=== PATIENT | female | born 1995 | race Caucasian/White ===

== ENCOUNTER 2017-10-05 12:35 | Day surgery (SDC) | payer OTHER, MEDICAID, SELFPAY ==
[2017-09-28 15:06] VITALS: BMI 38.0
[2017-10-05] VITALS (7 sets, daily range): BP systolic 94–158; BP diastolic 56–92; PULSE 77–112; RESP 16–22; TEMP 36.2–37; O2SAT 96–99; BMI 38.0
--- NOTE | 2017-10-05 | PATH_ITS ---
[facility] Accession Number: [id number] . 01 Material submitted: . HEMORRHOIDS . 02 Diagnosis: Hemorrhoids, Hemorrhoidectomy: Portions of hemorrhoid x2; negative for atypia and malignancy. [facility]/10/07/2017 . 02 Electronically signed: . Lizeth Allen MD, Pathologist NPI- [id number] . 01 Gross description: . Received one formalin-filled container labeled with the patient's name and labeled hemorrhoids. The specimen consists of two hussein-faust friable portions of tissue, which range in size from 0.5 x 0.5 x 0.3 cm to 0.6 x 0.5 x 0.3 cm. Both samples are inked blue, bisected and totally submitted in one cassette. ([id number]) . / . 02 Pathologist provided ICD-10: K64.9 . 02 CPT . 078221 Performed at: 01 [facility] [address] [facility], [place], [place] [id number] MD Brandon Raymundo MD Phone: [phone] Performed at: 02 [facility] [address] [place], [place] [id number] MD Kamaljit Jarvis MD Phone: [phone]
[2017-10-05] MEDS: LACTATED RINGERS 1,000 ML 42 ML IV ×2 (13:11→15:09)
[2017-10-05] MEDS: CEFOTETAN 2 GM/50 ML PIGGYBACK IV (14:30)
--- NOTE | 2017-10-05 14:53 | SUR.OPER ---
Lithotomy on padded OR bed, head on pillow, arms secured on padded arm boards at <90 degrees abduction. Legs secured in padded yellow fins stirrups.
[2017-10-05] MEDS: LIDOCAINE 1% W/EPI INJ 20 ML INJ (14:58)
[2017-10-05] MEDS: BUPIVACAINE 0.5% (PF) 30 ML VIAL INJ (14:59)
[2017-10-05] MEDS: DIBUCAINE 1% OINT 28 GM 1 APPLIC TOP (15:14)
--- NOTE | 2017-10-05 15:18 | PM.OP.1 ---
Operative Date/Time/Diagnoses - Date of procedure: 10/05/17 Time of procedure: 15:18 Pre-op diagnosis: Painful and troubling internal and external hemorrhoids Post-op diagnosis: same Procedure & Clinicians Procedure: Examination under anesthesia with possible hemorrhoidectomy and possible banding Same procedure as scheduled: Yes Surgeon: Lauren Loaiza Click Yes if Unassisted: Yes Anesthesia Type: General (Ahsaei) and Local Operative Notes Findings: Internal and external hemorrhoid complexes at 9 O'clock and 2 O'clock Internal complex at 6 O'clock Closure Type: primary Specimen(s): other (Portions of hemorrhoid tissue to pathology in formalin) Estimated Blood Loss (mL): 20 Procedure in detail: After obtaining informed consent, the patient was brought to the operating room and placed in the supine position on the operating table. Following successful induction of general endotracheal anesthesia, appropriate padding of all bony prominences, and placement of appropriate monitors, the legs were placed in Conner stirrups and the perianal and perineal region are prepped and draped in the standard surgical fashion. A timeout was held per SCOAP protocol. An anal retractor was lubricated and placed within the anal canal. This revealed a fairly large hemorrhoid complex at 9 o'clock and a 2nd at approximately 2:00 position. Both of these areas were internal and external complexes that were not adequately addressed with bands only. We began our procedure at the 9 o'clock Radian. A 2 0 chromic suture was placed at the apex of the hemorrhoid complex at 9 o'clock. The mucosa was opened sharply and the hemorrhoid dissected off of the underlying muscle and overlying skin using Metzenbaum scissors. It was passed from the table as a specimen. Care was taken not to violate the muscle or divide any of the muscle fibers. The defect was then closed in a running locking fashion by over sewing the mucosa with the chromic suture. The wound was checked for hemostasis. An identical procedure was completed at the 2 o'clock position. Further examination of the anal canal revealed an internal hemorrhoid complex at approximately 6 o'clock. This 1 was primarily internal and so I chose to address it with a band. The complex was grasped into elastic bands were deployed at its base. The anal canal was rechecked to be sure that all suture lines were intact and the bands were tightly deployed. The wound was checked for hemostasis and irrigated with warm saline. A roll of Gelfoam coated with lidocaine ointment was placed within the anal canal. All sponge, needle, and instrument counts were correct at the conclusion of the case. The patient was allowed to awaken from anesthesia without difficulty and taken to the postanesthesia care unit in good condition. All sponge, needle, and instrument counts were correct at the conclusion of the case. The patient was allowed to awaken from anesthesia without difficulty and taken to the post-anesthesia care unit in good condition. Complications: none Condition: stable Disposition: PACU Plan for aftercare: 1. Discharge to home 2. Follow up with me in 2 weeks
[2017-10-05] MEDS: fentaNYL 100 MCG/2 ML INJ 50 MCG IV ×3 (15:30→15:44)
[2017-10-05] MEDS: OXYCODONE/ACETAMINOPHEN 5/325 TABLET 1 TAB PO (16:04)
--- NOTE | 2017-10-05 17:00 | PM.HP.1 ---
History of Present Illness Chief complaint: [id number] Narrative: Nina Liriano is a 22 year old female who is well known to me from previous visits. She had a hemorrhoid banding this past fall and reports that it helped but she would like to have formal hemorrhoidectomy of the remaining hemorrhoids. We talked about this at the time we discussed banding and so she reports she feels comfortable with the procedure specifics. Patient History Medical History Hemorrhoids (Acute) Shoulder pain, right (Acute) Skin lesion of right arm (Acute) Surgical History History of tonsillectomy and adenoidectomy (Acute) History of third molar tooth extraction Status post tonsillectomy and adenoidectomy Family & Social History Family History: Reviewed 10/05/17 by Lauren Loaiza MD Tobacco & Substance Use Smoking Status: Never smoker Alcohol intake: current Meds Home Medications Medication Instructions Recorded Confirmed Type Test Strips - Freestyle str SEE INSTRUCTIONS #120 05/24/16 Rx Glucose: Home Monitor ea SEE INSTRUCTIONS #1 05/28/16 Rx Test Strips - Freestyle str QID #150 05/31/16 Rx metformin [Glucophage] 2 tab PO BID #360 tab 08/29/17 10/05/17 Rx norethindrone ac-eth estradiol 1 tab PO QDAY #4 pac 08/29/17 10/05/17 Rx [Loestrin 1.5/30 (21)] diazepam 5 mg PO DAILY PRN 10/05/17 10/05/17 History diazepam [Valium] 10 mg PO TID #20 tab MDD 3 10/05/17 Rx hydrocodone-acetaminophen 1 tab PO Q4H 10/05/17 10/05/17 History ibuprofen 600 mg PO Q6HP PRN 10/05/17 10/05/17 History methylprednisolone [Medrol (Jori)] See Label Instructions PO PER PKG 10/05/17 Rx DIR #21 each MDD As directed ondansetron [Zofran ODT] 4 mg PO Q6H PRN #14 tab 10/05/17 Rx oxycodone-acetaminophen [Percocet] 1 tab PO Q4-6H PRN #40 tab MDD 8 10/05/17 Rx Allergies Allergy/AdvReac Type Severity Reaction Status Date / Time No Known Drug Allergies Allergy Verified 10/05/17 15:00 Review of Systems Review of Systems All systems reviewed & are unremarkable except as noted in HPI and below Exam Vital Signs (past 8 hours): Vital Signs - 8 hr 10/05/17 12:54 10/05/17 15:23 10/05/17 15:28 Temperature 97.2 F L 97.7 F Pulse Rate 100 H 112 H 92 H Respiratory Rate 16 22 16 Blood Pressure 126/80 H 158/92 H 125/81 H Pulse Oximetry 97 96 99 10/05/17 15:35 10/05/17 15:49 10/05/17 16:10 Temperature 97.8 F Pulse Rate 92 H 94 H 77 Respiratory Rate 16 17 17 Blood Pressure 122/66 H 126/87 H 94/56 L Pulse Oximetry 98 97 98 10/05/17 16:38 Temperature 98.6 F Pulse Rate 98 H Respiratory Rate 18 Blood Pressure 121/70 H Pulse Oximetry 97 Pulse Oximetry 97 Oxygen Delivery Method Room Air Narrative Exam Narrative: Very pleasant and healthy young lady in no obvious distress. HEENT: Normocephalic and atraumatic, pupils equal round reactive to light and accommodation with anicteric sclera. Lungs: Clear to auscultation bilaterally Heart: Regular rate and rhythm without murmur Abdomen: Soft, nontender, active bowel sounds Perianal examination: 2 large internal external hemorrhoid complexes at 9 o'clock and 2 o'clock respectively. Another palpable internal hemorrhoid at approximately 6 o'clock in lithotomy position. No active bleeding and no open lesions. Extremities: Warm and well perfused without edema Assessment & Plan Plan: Plan: Very pleasant and healthy 22-year-old lady with troublesome and irritating and painful internal and external hemorrhoids. We once again discussed the risks and benefits of hemorrhoidectomy including anal stenosis and recurrent hemorrhoids and the patient expressed a desire to have the procedure.
--- NOTE | 2017-10-05 17:03 | P.HP_ITS ---
History of Present Illness Chief complaint: [id number] Narrative: Nina Liriano is a 22 year old female who is well known to me from previous visits. She had a hemorrhoid banding this past fall and reports that it helped but she would like to have formal hemorrhoidectomy of the remaining hemorrhoids. We talked about this at the time we discussed banding and so she reports she feels comfortable with the procedure specifics. Patient History Medical History Hemorrhoids (Acute) Shoulder pain, right (Acute) Skin lesion of right arm (Acute) Surgical History History of tonsillectomy and adenoidectomy (Acute) History of third molar tooth extraction Status post tonsillectomy and adenoidectomy Family & Social History Family History: Reviewed 10/05/17 by Lauren Loaiza MD Tobacco & Substance Use Smoking Status: Never smoker Alcohol intake: current Meds Home Medications Medication Instructions Recorded Confirmed Type Test Strips - Freestyle str SEE INSTRUCTIONS #120 05/24/16 Rx Glucose: Home Monitor ea SEE INSTRUCTIONS #1 05/28/16 Rx Test Strips - Freestyle str QID #150 05/31/16 Rx metformin [Glucophage] 2 tab PO BID #360 tab 08/29/17 10/05/17 Rx norethindrone ac-eth estradiol 1 tab PO QDAY #4 pac 08/29/17 10/05/17 Rx [Loestrin 1.5/30 (21)] diazepam 5 mg PO DAILY PRN 10/05/17 10/05/17 History diazepam [Valium] 10 mg PO TID #20 tab MDD 3 10/05/17 Rx hydrocodone-acetaminophen 1 tab PO Q4H 10/05/17 10/05/17 History ibuprofen 600 mg PO Q6HP PRN 10/05/17 10/05/17 History methylprednisolone [Medrol (Jori)] See Label Instructions PO PER PKG 10/05/17 Rx DIR #21 each MDD As directed ondansetron [Zofran ODT] 4 mg PO Q6H PRN #14 tab 10/05/17 Rx oxycodone-acetaminophen [Percocet] 1 tab PO Q4-6H PRN #40 tab MDD 8 10/05/17 Rx Allergies Allergy/AdvReac Type Severity Reaction Status Date / Time No Known Drug Allergies Allergy Verified 10/05/17 15:00 Review of Systems Review of Systems All systems reviewed & are unremarkable except as noted in HPI and below Exam Vital Signs (past 8 hours): Vital Signs - 8 hr 3 10/05/17 12:54 10/05/17 15:23 10/05/17 15:28 Temperature 97.2 F L 97.7 F Pulse Rate 100 H 112 H 92 H Respiratory Rate 16 22 16 Blood Pressure 126/80 H 158/92 H 125/81 H Pulse Oximetry 97 96 99 3 10/05/17 15:35 10/05/17 15:49 10/05/17 16:10 Temperature 97.8 F Pulse Rate 92 H 94 H 77 Respiratory Rate 16 17 17 Blood Pressure 122/66 H 126/87 H 94/56 L Pulse Oximetry 98 97 98 3 10/05/17 16:38 Temperature 98.6 F Pulse Rate 98 H Respiratory Rate 18 Blood Pressure 121/70 H Pulse Oximetry 97 Pulse Oximetry 97 Oxygen Delivery Method Room Air Narrative Exam Narrative: Very pleasant and healthy young lady in no obvious distress. HEENT: Normocephalic and atraumatic, pupils equal round reactive to light and accommodation with anicteric sclera. Lungs: Clear to auscultation bilaterally Heart: Regular rate and rhythm without murmur Abdomen: Soft, nontender, active bowel sounds Perianal examination: 2 large internal external hemorrhoid complexes at 9 o' clock and 2 o'clock respectively. Another palpable internal hemorrhoid at approximately 6 o'clock in lithotomy position. No active bleeding and no open lesions. Extremities: Warm and well perfused without edema Assessment & Plan Plan: Plan: Very pleasant and healthy 22-year-old lady with troublesome and irritating and painful internal and external hemorrhoids. We once again discussed the risks and benefits of hemorrhoidectomy including anal stenosis and recurrent hemorrhoids and the patient expressed a desire to have the procedure.
== END 2017-10-05 17:09 | disposition home or self-care (01) ==
PROVIDERS: PCP Family Medicine; Visit Provider Surgery
PROC: (CPT 45990; principal; 2017-10-05 13:45)
DX: K64.4 Residual hemorrhoidal skin tags (principal); K64.8 Other hemorrhoids
CPT/HCPCS: 46260; 88304; J1100; J2405; J2704; J3010

== ENCOUNTER 2018-05-11 16:17 | Emergency (ER) | payer OTHER, MEDICAID, SELFPAY ==
[2018-05-11 16:46] VITALS: BP 117/73; PULSE 67; RESP 15; TEMP 36.8; O2SAT 100; BMI 37.3
--- NOTE | 2018-05-11 18:36 | ED_ITS ---
HPI - URI/Sore Throat General Chief Complaint: Upper Respiratory Symptoms Stated Complaint: swollen throat, feels feverish, cold sore in throa Time Seen by Provider: 05/11/18 18:07 Source: patient Mode of arrival: ambulatory Limitations: no limitations History of Present Illness HPI Narrative: Patient is a 22-year-old female who presents with sore throat ongoing for the last 3 days. She was seen evaluated at walk-in clinic yesterday. Strep was negative. She is requesting a back up strep test or a viral test. She has Magic mouthwash ready to sweet pickled fruit maker at the pharmacy though she has not yet picked it up. She is afebrile here. She denies any cough no nausea vomiting or abdominal pain. No on else is sick. MD Complaint: sore throat Severity: moderate Related Data Home Medications Medication Instructions Recorded Confirmed ibuprofen 600 mg PO Q6HP PRN 10/05/17 05/10/18 norethindrone ac-eth estradiol 1 tab PO DAILY 05/11/18 05/11/18 [Microgestin 1.5/30 (21)] Previous Rx's Medication Instructions Recorded Glucose: Home Monitor ea SEE INSTRUCTIONS #1 05/28/16 Test Strips - Freestyle str QID #150 05/31/16 metformin [Glucophage] 2 tab PO BID #360 tab 08/29/17 gabapentin 300 mg capsule 300 mg PO BID #60 cap MDD 2 10/17/17 Allergies Allergy/AdvReac Type Severity Reaction Status Date / Time No Known Drug Allergies Allergy Verified 05/11/18 16:46 Review of Systems Review of Systems GENERAL: Denies chills,fever HEENT: See HPI RESPIRATORY: Denies dyspnea, cough, wheezing CARDIOVASCULAR: Denies chest pain, palpitations GASTROINTESTINAL: Denies nausea, vomiting MUSCULOSKELETAL: Denies extremity pain, injury SKIN: No rash, no laceration, no pruritus NEUROLOGIC: Denies weakness, dizziness, headache, numbness 8 point review of systems is negative except for those stated above and HPI PFSH Medical History Hemorrhoids (Acute) Shoulder pain, right (Acute) Skin lesion of right arm (Acute) Surgical History History of tonsillectomy and adenoidectomy (Acute) History of third molar tooth extraction Status post tonsillectomy and adenoidectomy Social History household members: significant other and children Smoking Status: Never smoker alcohol intake: current Exam Initial Vital Signs Initial Vital Signs: Vital Signs Temperature 98.3 F 05/11/18 16:46 Pulse Rate 67 05/11/18 16:46 Respiratory Rate 15 05/11/18 16:46 Blood Pressure 117/73 05/11/18 16:46 Pulse Oximetry 100 05/11/18 16:46 GENERAL: Well-appearing, well-nourished and in no acute distress. HEENT: Head atraumatic,EOMI, pupils reactive, neck is supple no meningeal signs PHARYNX: No erythema tonsils absent, there are 2 canker sores noted on roof of mouth, managing own secretions CARDIOVASCULAR: Regular rate and rhythm without murmurs, rubs or gallops. RESPIRATORY: Breath sounds equal bilaterally, no wheezes rales or rhonchi. ABDOMEN: Soft, nontender. Normoactive bowel sounds all 4 quadrants. No guarding or rebound. EXTREMITIES: Normal range of motion, no clubbing or edema. Neurovascularly intact NEUROLOGICAL: Alert and oriented x4.Normal gait and speech. SKIN: Warm, dry, no laceration, no petechiae, no rashes or lesions. Course Vital Signs - 8 hr 05/11/18 16:46 Temperature 98.3 F Pulse Rate 67 Respiratory Rate 15 Blood Pressure 117/73 Pulse Oximetry 100 Discharge Plan Departure Patient Disposition: Home Clinical Impression: Acute upper respiratory infection Instructions: DI for Viral Upper Respiratory Infection -- Adult Activity Restrictions/Additional Instructions: *You have been diagnosed with upper respiratory infection *What to do: This is likely a viral syndrome and it will run its course. Supportive care. Fever control, increase fluids. *Continue to take medications as directed -sweet pickled fruit maker Magic mouthwash intake as previously prescribed *Follow up with your primary care provider in 2-3 days *Return to ER if you should have inability to tolerate fluids, or any new, worsening or concerning symptoms Prescriptions: No Action Glucose: Home Monitor SEE INSTRUCTIONS Qty: 1 RF: 0 Test Strips - Freestyle QID Qty: 150 RF: 3 metformin [Glucophage] 500 MG tablet 2 tab PO BID Qty: 360 RF: 3 gabapentin 300 mg capsule 300 mg PO BID MDD 2 Qty: 60 RF: 0 ibuprofen 600 MG tablet 600 mg PO Q6HP PRN (Reason: Pain (Scale Score 1-3)) RF: 0 norethindrone ac-eth estradiol [Microgestin 1.5 (21)] 1.5-30 mg-mcg tablet 1 tab PO DAILY RF: 0
== END 2018-05-11 19:11 | disposition home or self-care (01) ==
PROVIDERS: Emergency Provider Emergency Medicine
DX: J06.9 Acute upper respiratory infection, unspecified (principal)
CPT/HCPCS: 99282

== ENCOUNTER 2018-10-01 08:03 | Emergency (ER) | payer OTHER, MEDICAID, SELFPAY ==
[2018-10-01 08:03] VITALS: BP 141/79; PULSE 50; RESP 18; TEMP 36.6; O2SAT 100; BMI 38.7
--- NOTE | 2018-10-01 08:42 | ED_ITS ---
HPI - Abdominal Pain General Chief Complaint: Abdominal Pain Stated Complaint: Medication Reaction Time Seen by Provider: 10/01/18 08:23 Source: patient Mode of arrival: ambulatory Limitations: no limitations History of Present Illness HPI narrative: Patient is a 23-year-old female with history of PCOS presenting with vomiting mostly for the last 5 hours she has had some diarrhea as well. She started taking her metformin were consistently and she normally did she has been managing at that for about a week and half. However this came suddenly where she started throwing. She has some upper epigastric abdominal pain. CC denies any fever or chills. MD complaint: abdominal pain Onset (ago): hour(s) (5) Pain Consistency: intermittent Location: epigastric Quality: cramping Related Data Home Medications Medication Instructions Recorded Confirmed ibuprofen 600 mg PO Q6HP PRN 10/05/17 05/10/18 Previous Rx's Medication Instructions Recorded Glucose: Home Monitor ea SEE INSTRUCTIONS #1 05/28/16 Test Strips - Freestyle str QID #150 05/31/16 gabapentin 300 mg capsule 300 mg PO DAILY #90 cap MDD 2 05/12/18 metformin 500 mg tablet 1,000 mg PO BID #360 tab 05/12/18 norethindrone acetate-ethinyl 1 tab PO DAILY #63 tab 05/12/18 estradiol 1.5 mg-30 mcg tablet ondansetron 4 mg PO Q6-8H PRN #10 tab 10/01/18 Allergies Allergy/AdvReac Type Severity Reaction Status Date / Time No Known Drug Allergies Allergy Verified 10/01/18 08:24 Review of Systems Review of Systems GENERAL: Denies chills, fatigue, malaise, fever, sweats, travel HEENT: Denies sinus pain, ear pain, sore throat, difficulty swallowing, neck pain RESPIRATORY: Denies dyspnea, cough, wheezing, hemoptysis, sputum. CARDIOVASCULAR: Denies chest pain, palpitations, orthopnea, edema GASTROINTESTINAL: See HPI : Denies dysuria, frequency, incontinence, hematuria, urinary retention, flank pain. MUSCULOSKELETAL: Denies weakness, joint pain, or bony pain SKIN: No rash, no erythema, no pruritus NEUROLOGIC: Denies weakness, dizziness, headache, numbness, change in speech, confusion PSYCHIATRIC: No concerning psychosocial issues. 12 point review of systems is negative except for those stated above and HPI [facility] Medical History Hemorrhoids (Acute) Shoulder pain, right (Acute) Skin lesion of right arm (Acute) Surgical History History of tonsillectomy and adenoidectomy (Acute) History of third molar tooth extraction Status post tonsillectomy and adenoidectomy Social History household members: significant other and children Smoking Status: Never smoker alcohol intake: current Social History household members: significant other and children Smoking Status: Never smoker alcohol intake: current Exam Initial Vital Signs Initial Vital Signs: Vital Signs Temperature 97.9 F 10/01/18 08:03 Pulse Rate 50 L 10/01/18 08:03 Respiratory Rate 18 10/01/18 08:03 Blood Pressure 141/79 H 10/01/18 08:03 Pulse Oximetry 100 10/01/18 08:03 GENERAL: Alert overweight female appears slightly uncomfortable HEENT: Head atraumatic,EOMI, pupils reactive, face symmetric, [moist] mucous membranes CARDIOVASCULAR: Regular rate and rhythm without murmurs, rubs or gallops. RESPIRATORY: Breath sounds equal bilaterally, no wheezes rales or rhonchi. ABDOMEN: Soft, epigastric tenderness, no guarding no rebound no lower abdominal tenderness : No CVA tenderness EXTREMITIES: Normal range of motion, no clubbing or edema. Neurovascularly intact NEUROLOGICAL: Alert and oriented x4.Normal gait and speech. Cranial nerves II through XII grossly intact. SKIN: Warm, dry, no laceration, no petechiae, no rashes or lesions. Course Orders Ordered: ED Orders 10/01/18 09:05 Complete Blood Count AUTO DIFF Stat Comprehensive Metabolic Panel Stat Lipase Stat 10/01/18 10:35 Urine Culture Stat Urine Microscopic Stat Discontinued Medications Sodium Chloride (Normal Saline 0.9%) 1,000 mls @ 1,000 mls/hr IV CONT CAESAR Last Infusion: 10/01/18 10:55 Dose: 0 mls/hr Admin: 10/01/18 09:29 Dose: 1,000 mls/hr Ketorolac Tromethamine (Toradol) 30 mg IV NOW ONE Stop: 10/01/18 10:50 Last Admin: 10/01/18 10:58 Dose: 30 mg Ondansetron HCl (Zofran) 4 mg IV NOW ONE Stop: 10/01/18 08:50 Last Admin: 10/01/18 09:29 Dose: 4 mg Ondansetron HCl (Zofran) 4 mg IV NOW ONE Stop: 10/01/18 10:50 Last Admin: 10/01/18 10:58 Dose: 4 mg Reevaluation(s) Reevaluation #1: Patient was Ambulatory to the restroom was feeling much better. However when she returned she started feeling nauseated again she has not vomited but overall not feeling well Time: 10:48 Vital Signs - 8 hr 10/01/18 08:03 10/01/18 09:41 10/01/18 11:25 Temperature 97.9 F 98.1 F Pulse Rate 50 L 48 L 45 L Respiratory Rate 18 16 Blood Pressure 141/79 H Blood Pressure [Left Arm] 112/55 L 129/86 Pulse Oximetry 100 100 100 MDM - Abdominal Pain Lab Data Attestation: I reviewed the patient's lab results. Result diagrams: 10/01/18 09:05 10/01/18 09:05 Lab Results 10/01/18 10/01/18 10/01/18 Range/Units 09:05 09:05 10:35 WBC 7.8 (4.5-11.0) X10^3/uL RBC 4.56 (4.0-5.2) X10^6/uL Hgb 13.4 (12.0-16.0) g/dL Hct 39.3 (36-46) % MCV 86.0 (80-100) fL MCH 29.4 (26-34) PG MCHC 34.1 (30-36) % RDW 13.1 (11.6-14.8) % Plt Count 190 (150-400) X10^3/uL Neut % (Auto) 79.9 H (50-75) % Lymph % (Auto) 15.6 L (25-40) % [place] % (Auto) 4.0 (3-14) % Eos % (Auto) 0.3 L (2-4) % Baso % (Auto) 0.2 (0-2) % Neut # (Auto) 6200 (8170-0628) /uL Lymph # (Auto) 1200 (1346-9200) /uL [place] # (Auto) 300 (0-900) /uL Eos # (Auto) 0 (0-450) /uL Baso # (Auto) 0 (0-100) /uL Sodium 137 (137-145) mmol/L Potassium 3.9 (3.4-5.1) mmol/L Chloride 102 (98-107) mmol/L Carbon Dioxide 21 L (22-32) mmol/L BUN 9 (7-17) mg/dL Creatinine 0.70 (0.52-1.04) mg/dL Estimated GFR > 60.0 (>60) mL/min BUN/Creatinine Ratio 12.9 (6-22) Glucose 125 H (70-100) mg/dL Calcium 9.8 (8.4-10.2) mg/dL Total Bilirubin 0.6 (0.2-1.3) mg/dL AST 23 (14-36) IU/L ALT 14 (9-52) IU/L Alkaline Phosphatase 59 (38-126) U/L Total Protein 7.8 (6.3-8.2) g/dL Albumin 4.4 (3.5-5.0) g/dL Globulin 3.4 (1.7-4.1) g/dL Albumin/Globulin Ratio 1.3 (1.0-2.8) Lipase 83 (23-300) U/L Urine RBC None seen (0-5/HPF) Urine WBC 1-5/hpf (0-5/HPF) Ur Squamous Epith Cells 1-5 /hpf (0-5/HPF) Amorphous Sediment 1+ Urine Bacteria Few (2-10) H (None) Urine Mucus 2+ H (Negative) Ur Culture Indicated? Specimen cultured Point of care testing: Point of Care Testing Test Results Negative Urine Dip Bedside Urine Glucose Negative Bedside Urine Bilirubin - Negative Bedside Urine Ketone ++ 40 Urine Specific [place] 1.015 Bedside Urine Occult Blood - Negative Bedside Urine pH 7.0 Bedside Urine Protein +/- 15 Bedside Urine Urobilinogen - Negative Bedside Urine Nitrite - Negative Bedside Urine Leukocytes +/- 15 Esterase MDM Narrative Medical decision making narrative: Patient tolerating oral fluids. She does not have sinus symptoms of a UTI. This time wait for culture and sensitivity Abdomen is reexamined minimal tenderness epigastric area at this time no indication for of imaging liver enzymes and bilirubin within normal limits Discharge Plan Departure Patient Disposition: Home Clinical Impression: Vomiting Qualifiers: Vomiting type: bilious vomiting Nausea presence: with nausea Qualified Code(s): R11.14 - Bilious vomiting Discharge Date/Time: 10/01/18 12:05 Interventions: ED Discharge Assessment Last Done: 10/01/18 12:05 Instructions: DI for Dehydration -- Adult Activity Restrictions/Additional Instructions: 1) You have been diagnosed with vomiting 2) What to do: Drink frequent but small amounts of fluids. I recommend Gatorade or a Gatorade-like product, as it has small amounts of sugar and salts that improve fluid retention. 3) Take medications as directed Zofran 4 mg every 6-8 hours if needed for nausea or vomiting sent to [facility] in [place] 4) Follow up with your primary care provider in 2-3 days [and follow up with ortho, urology etc] 5) Return to ER if you should have any new or worsening symptoms such as, unable to hold down fluids despite use of anti-nausea medications and the small volume oral rehydration strategy. Prescriptions: New ondansetron 4 mg tablet,disintegrating 4 mg PO Q6-8H PRN (Reason: nausea and vomiting) Qty: 10 RF: 0 No Action Glucose: Home Monitor SEE INSTRUCTIONS Qty: 1 RF: 0 Test Strips - Freestyle QID Qty: 150 RF: 3 norethindrone ac-eth estradiol 1.5-30 mg-mcg tablet 1 tab PO DAILY Qty: 63 RF: 1 metformin [Glucophage] 500 mg tablet 1,000 mg PO BID Qty: 360 RF: 1 gabapentin 300 mg capsule 300 mg PO DAILY MDD 2 Qty: 90 RF: 1 ibuprofen 600 MG tablet 600 mg PO Q6HP PRN (Reason: Pain (Scale Score 1-3)) RF: 0
[2018-10-01] MEDS: ONDANSETRON 4 MG/2 ML INJ IV ×2 (09:29→10:58)
[2018-10-01] MEDS: SODIUM CHLORIDE 0.9% 1,000 ML 1000 ML IV (09:29)
[2018-10-01 09:30] LABS: Add Manual Diff / Slide Review NO; Basophils Absolute Auto 0 /uL (0-100); Basophils Percent Auto 0.2 % (0-2); Eosinophils Absolute Auto 0 /uL (0-450); Eosinophils Percent Auto 0.3 % (2-4); Hematocrit 39.3 % (36-46); Hemoglobin 13.4 g/dL (12.0-16.0); Lymphocytes Absolute Auto 1200 /uL (1100-4500); Lymphocytes Percent Auto 15.6 % (25-40); Mean Corpuscular HGB Conc 34.1 % (30-36); Mean Corpuscular Hemoglobin 29.4 PG (26-34); Monocytes Absolute Auto 300 /uL (0-900); Neutrophils Absolute Auto 6200 /uL (1500-7000); Neutrophils Percent Auto 79.9 % (50-75); Platelet Count 190 X10^3/uL (150-400); Red Blood Cell Count 4.56 X10^6/uL (4.0-5.2); Red Cell Distribution Width 13.1 % (11.6-14.8); White Blood Cell Count 7.8 X10^3/uL (4.5-11.0)
[2018-10-01 09:40] LABS: Alanine Aminotransferase 14 IU/L (9-52); Albumin 4.4 g/dL (3.5-5.0); Albumin Globulin Ratio 1.3 (1.0-2.8); Alkaline Phosphatase 59 U/L (38-126); Aspartate Aminotransferase 23 IU/L (14-36); BUN Creatinine Ratio 12.9 (6-22); Bilirubin Total 0.6 mg/dL (0.2-1.3); Blood Urea Nitrogen 9 mg/dL (7-17); Calcium 9.8 mg/dL (8.4-10.2); Carbon Dioxide 21 mmol/L (22-32); Chloride 102 mmol/L (98-107); Estimated Glomerular Filt Rate > 60.0 mL/min (>60); Globulin 3.4 g/dL (1.7-4.1); Glucose 125 mg/dL (70-100); HEMOLYSIS < 15 (0-50); Lipase 83 U/L (23-300); Potassium 3.9 mmol/L (3.4-5.1); Sodium 137 mmol/L (137-145); Total Protein 7.8 g/dL (6.3-8.2)
[2018-10-01 09:41] VITALS: BP 112/55; PULSE 48; RESP 16; O2SAT 100
[2018-10-01] MEDS: KETOROLAC 60 MG/2 ML VIAL 30 MG IV (10:58)
[2018-10-01 11:25] VITALS: BP 129/86; PULSE 45; TEMP 36.7; O2SAT 100
[2018-10-01 11:30] LABS: RBC Urine None Seen (0-5/HPF)
[2018-10-01 11:40] LABS: Amorphous Sediment Urine 1+; Bacteria Urine Few (2-10); Culture Indicated Urine Specimen Cultured; Mucus Urine 2+ (Negative); Squamous Epithelial Cell Urine 1-5 /HPF (0-5/HPF); WBC Urine 1-5/HPF (0-5/HPF)
== END 2018-10-01 12:05 | disposition home or self-care (01) ==
PROVIDERS: Emergency Provider Emergency Medicine
DX: R11.14 Bilious vomiting (principal); R10.13 Epigastric pain; R19.7 Diarrhea, unspecified
CPT/HCPCS: 36591; 80053; 81003; 81015; 81025; 83690; 85025; 87077; 87086; 96361; 96374; 96375; 96376; 99283; 99284; J1885; J2405

== ENCOUNTER 2018-10-03 07:22 | Emergency (ER) | payer OTHER, MEDICAID, SELFPAY ==
[2018-10-03 07:26] VITALS: BP 157/71; PULSE 61; RESP 18; TEMP 36.8; O2SAT 100; BMI 38.7
[2018-10-03 08:02] LABS: Add Manual Diff / Slide Review NO; Basophils Absolute Auto 100 /uL (0-100); Basophils Percent Auto 0.6 % (0-2); Eosinophils Absolute Auto 200 /uL (0-450); Eosinophils Percent Auto 2.3 % (2-4); Hematocrit 40.7 % (36-46); Hemoglobin 13.6 g/dL (12.0-16.0); Lymphocytes Absolute Auto 2900 /uL (1100-4500); Lymphocytes Percent Auto 33.9 % (25-40); Mean Corpuscular HGB Conc 33.4 % (30-36); Mean Corpuscular Hemoglobin 29.3 PG (26-34); Mean Corpuscular Volume 87.7 fL (80-100); Monocytes Absolute Auto 600 /uL (0-900); Monocytes Percent Auto 6.9 % (3-14); Neutrophils Absolute Auto 4700 /uL (1500-7000); Neutrophils Percent Auto 56.3 % (50-75); Platelet Count 202 X10^3/uL (150-400); Red Blood Cell Count 4.64 X10^6/uL (4.0-5.2); Red Cell Distribution Width 13.3 % (11.6-14.8); White Blood Cell Count 8.4 X10^3/uL (4.5-11.0)
[2018-10-03 08:03] LABS: Appearance Urine UA CLEAR; Bilirubin Urine UA NEGATIVE (NEGATIVE); Color Urine UA YELLOW; Glucose Urine UA NEGATIVE (Negative); Ketones Urine UA TRACE (NEGATIVE); Leukocyte Esterase Urine UA TRACE (NEGATIVE); Nitrite Urine UA NEGATIVE (Negative); Occult Blood Urine UA TRACE-LYSED (Negative); Protein Urine UA NEGATIVE (Negative); Specific Gravity Urine UA 1.025 (1.000-1.035); Urobilinogen Urine UA 0.2 E.U./dL (0.2); pH Urine UA 6.5 (4.5-8.0)
--- NOTE | 2018-10-03 08:03 | ED.ABDPAIN ---
HPI - Abdominal Pain General Chief Complaint: Abdominal Pain Stated Complaint: severe stomach pain,vomiting Time Seen by Provider: 10/03/18 07:23 Source: patient and family Mode of arrival: ambulatory Limitations: no limitations History of Present Illness HPI narrative: Patient comes to the emergency department complaining of ongoing bouts of upper abdominal pain and nausea. This all started 3 nights ago, and patient was seen in the emergency department for this 2 days ago. At that time, labs were unremarkable and urinalysis was negative. The patient was treated symptomatically in the emergency department, event to be feeling better and discharged. Patient states that she did okay for the rest of that evening, and woke up yesterday morning feeling nauseated again but after a few dry heaves, was able to eat and drink for the rest of the day. Patient states she was fine last night, but woke up at 5:30 a.m. this morning with upper abdominal pain, which she rates an 8/10, and dry heaving. Patient states that she has not been able to actually vomit anything up. She states she initially had diarrhea, but this is gone away. She denies any blood in her stools or black tarry stools. Patient states this is never happened to her before. She denies any camping or exotic travel. She states nobody else around her has been sick and no one who ate the same food as her has been sick. She does not have any known abdominal conditions, and has not had any surgeries on her abdomen. Patient denies fevers. No cough. She states she feels as though she is breathing harder because the pain. No chest pain. Patient indicates that the abdominal pain is in her epigastric area, and does not involve the left or right. She states she feels that it is mainly the pain that is making her feel nauseated. Related Data Home Medications Medication Instructions Recorded Confirmed ibuprofen 600 mg PO Q6HP PRN 10/05/17 10/04/18 Glucose: Home Monitor 1 ea MISCELLANEOUS SEE INSTRUCTIONS 10/03/18 10/04/18 Test Strips - Freestyle 1 str MISCELLANEOUS QID 10/03/18 10/04/18 gabapentin 300 mg PO DAILY PRN MDD 2 10/03/18 10/04/18 norethindrone ac-eth estradiol 1 tab PO QPM 10/03/18 10/04/18 [Microgestin 1.5/30 (21)] Previous Rx's Medication Instructions Recorded metformin 500 mg tablet 1,000 mg PO BID #360 tab 05/12/18 hydrocodone-acetaminophen 1 tab PO Q4-6H PRN #14 tab 10/03/18 blood sugar diagnostic strips #50 each 10/04/18 metoclopramide 5 mg tablet 5 mg PO DAILY #20 tab 10/04/18 Allergies Allergy/AdvReac Type Severity Reaction Status Date / Time No Known Drug Allergies Allergy Verified 10/04/18 09:41 Review of Systems Constitutional Denies chills, Denies fever(s), Denies lethargy and Denies weakness Eyes Denies change in vision, Denies eye discharge, Denies irritation and Denies loss of vision ENT Ears, Nose, Mouth, and Throat: Denies change in voice, Denies neck pain and Denies sore throat Cardiovascular Denies chest pain, Denies irregular heart rhythm, Denies lightheadedness, Denies palpitations, Denies dyspnea, Denies dyspnea on exertion and Denies orthopnea Respiratory Denies cough, Denies dyspnea, Denies dyspnea on exertion and Denies wheezing Gastrointestinal Gastrointestinal: Reports abdominal pain, Denies change in bowel habits, Denies diarrhea, Reports nausea and Denies vomiting Genitourinary Denies hematuria, Denies flank pain, Denies urinary incontinence and Denies urinary urgency Musculoskeletal Denies neck pain Integumentary/Breasts Denies pruritus, Denies erythema, Denies rash and Denies wounds Neurologic Denies confusion, Denies loss of vision and Denies weakness Psychiatric Denies anxiety, Denies confusion, Denies depression, Denies homicidal ideation and Denies suicidal ideation Endocrine Denies palpitations Hematologic/Lymphatic Denies easy bruising Allergic/Immunologic Denies wheezing [facility] Medical History (Updated 10/04/18 @ 11:57 by Thi Zamarripa MD) PCOS (polycystic ovarian syndrome) (Acute) Hemorrhoids (Acute) Shoulder pain, right (Acute) Skin lesion of right arm (Acute) Surgical History History of tonsillectomy and adenoidectomy (Acute) History of third molar tooth extraction Status post tonsillectomy and adenoidectomy Social History household members: significant other and children Smoking Status: Never smoker alcohol intake: current Social History household members: significant other and children Smoking Status: Never smoker alcohol intake: current Exam Initial Vital Signs Initial Vital Signs: Vital Signs Temperature 98.2 F 10/03/18 07:26 Pulse Rate 61 10/03/18 07:26 Respiratory Rate 18 10/03/18 07:26 Blood Pressure 157/71 H 10/03/18 07:26 Pulse Oximetry 100 10/03/18 07:26 Const General: cooperative and well developed Nutritional Appearance: well nourished Orientation: alert, awake, oriented x3 and not confused Other: Patient is swaying and rocking on the bed, moaning and holding her abdomen, and breathing hard. HENMT Head: normocephalic and atraumatic Ears: external ears normal and TM's normal bilaterally Nose: external nose normal and No nasal discharge Face and sinus: sinuses nontender, face symmetric, no sinus tenderness and No dry mucous membranes Mouth: oral mucosae normal and moist mucous membranes Teeth and gingiva: dentition normal Throat: tonsils normal and uvula midline Eyes General: appearance normal, both eyes and all related structures Eyelids: eyelids normal Conjunctivae: conjunctivae normal Sclera: sclerae normal Pupils: PERRL EOM: EOM intact bilaterally Neck Neck: normal visual inspection, trachea midline, No lymphadenopathy, No midline deformity and No JVD Lymphatic: No lymphedema Chest Chest: normal inspection of the chest Resp Effort & Inspection: normal respiratory effort, able to speak in complete sentences, no respiratory distress and no use of accessory muscles Auscultation: clear to auscultation bilaterally, no rales, no rhonchi and no wheezes Cardio Rate: regular rate Rhythm: regular rhythm Heart Sounds: no click, no gallops, no murmurs and no rubs Pulses: normal peripheral pulses GI Inspection: non-distended Palpation: soft, no hepatosplenomegaly, No guarding, No pulsatile mass and No tender Auscultation: normal bowel sounds Back/Spine/Pelvis Back: No CVA tenderness Cervical Spine: cervical ROM normal and No pain with cervical ROM Thoracic/Lumbar Spine: thoracic and lumbar spine normal to inspection Skin General: no rashes or lesions noted, No jaundice and No petechiae Neuro General: alert, oriented x3, gait normal and no focal motor deficits Speech: speech normal Extrem General: full ROM, no clubbing, cyanosis or edema, no pedal edema and no calf tenderness Psych Appearance: well kempt Mental Status: mental status grossly normal Attitude: cooperative Thought Content: normal and suicidality Judgment: judgment good Course Course Narrative: Patient was given IV fluids, Zofran, and Dilaudid for symptomatic relief. Labs were repeated after review of patient's workup from her previous visit 2 days ago for the same symptoms, and patient was found to have a higher lipase today than on her previous visit, though still within normal limits. As such, I did order an ultrasound of the upper abdomen to evaluate for potential gallbladder issues, but this was found to be negative. I did then order a CT scan is the patient had been in quite a bit of discomfort upon arrival, and this was also negative. Patient's white blood cell count was normal, as were her LFTs, and I did not find evidence of an emergent condition at this time. Additionally, extensive imaging had also been found to be negative. I discussed the results with the patient, who expressed her extreme disgruntlement at the workup being negative. I have discussed with the patient and her mother that her symptoms may very well represent a viral illness, and that if so, it will be self-limited. However, we have also discussed with the possibility of gastritis/ulcer, and patient may follow up with Gastroenterology to further explore this possibility, including with endoscopy. The patient has an appointment with her primary care physician tomorrow, and I have also given her the contact information for Gastroenterology. We have discussed the usual indications for return Orders Ordered: Discontinued Medications Hydromorphone HCl (Dilaudid) 1 mg IV NOW ONE Stop: 10/03/18 08:04 Last Admin: 10/03/18 08:23 Dose: 1 mg Hydromorphone HCl (Dilaudid) 1 mg IV NOW ONE Stop: 10/03/18 09:27 Last Admin: 10/03/18 10:00 Dose: 1 mg Ondansetron HCl (Zofran) 4 mg IV NOW ONE Stop: 10/03/18 08:24 Last Admin: 10/03/18 08:23 Dose: 4 mg Vital Signs - 8 hr 10/03/18 07:26 Temperature 98.2 F Pulse Rate 61 Respiratory Rate 18 Blood Pressure 157/71 H Pulse Oximetry 100 MDM - Abdominal Pain Medical Records Attestation: I reviewed the patient's medical records. Lab Data Attestation: I reviewed the patient's lab results. Result diagrams: 10/03/18 07:45 10/03/18 07:45 Lab Results 10/03/18 10/03/18 10/03/18 Range/Units 07:45 07:45 08:00 WBC 8.4 (4.5-11.0) X10^3/uL RBC 4.64 (4.0-5.2) X10^6/uL Hgb 13.6 (12.0-16.0) g/dL Hct 40.7 (36-46) % MCV 87.7 (80-100) fL MCH 29.3 (26-34) PG MCHC 33.4 (30-36) % RDW 13.3 (11.6-14.8) % Plt Count 202 (150-400) X10^3/uL Neut % (Auto) 56.3 D (50-75) % Lymph % (Auto) 33.9 (25-40) % [place] % (Auto) 6.9 (3-14) % Eos % (Auto) 2.3 (2-4) % Baso % (Auto) 0.6 (0-2) % Neut # (Auto) 4700 (6976-1022) /uL Lymph # (Auto) 2900 (2737-4884) /uL [place] # (Auto) 600 (0-900) /uL Eos # (Auto) 200 (0-450) /uL Baso # (Auto) 100 (0-100) /uL Sodium 137 (137-145) mmol/L Potassium 3.7 (3.4-5.1) mmol/L Chloride 103 (98-107) mmol/L Carbon Dioxide 23 (22-32) mmol/L BUN 9 (7-17) mg/dL Creatinine 0.80 (0.52-1.04) mg/dL Estimated GFR > 60.0 (>60) mL/min BUN/Creatinine Ratio 11.3 (6-22) Glucose 120 H (70-100) mg/dL Calcium 9.8 (8.4-10.2) mg/dL Total Bilirubin 0.5 (0.2-1.3) mg/dL AST 28 (14-36) IU/L ALT 18 (9-52) IU/L Alkaline Phosphatase 61 (38-126) U/L Total Protein 8.0 (6.3-8.2) g/dL Albumin 4.5 (3.5-5.0) g/dL Globulin 3.5 (1.7-4.1) g/dL Albumin/Globulin Ratio 1.3 (1.0-2.8) Lipase 241 D (23-300) U/L Urine Color Yellow Urine Appearance Clear Urine pH 6.5 (4.5-8.0) Ur Specific [place] 1.025 (1.000-1.035) Urine Protein Negative (Negative) Urine Glucose (UA) Negative (Negative) g/dL Urine Ketones Trace H (NEGATIVE) Urine Occult Blood Trace-lysed (Negative) Urine Nitrate Negative (Negative) Urine Bilirubin Negative (NEGATIVE) Urine Urobilinogen 0.2 (0.2) E.U./dL Ur Leukocyte Esterase Trace H (NEGATIVE) Urine RBC 1-5/hpf (0-5/HPF) Urine WBC 1-5/hpf (0-5/HPF) Ur Squamous Epith Cells 5-10 /hpf H (0-5/HPF) Ur Transition Epith Cell 0-1/hpf (0-5/HPF) Urine Bacteria Moderate (10-30) H (None) Ur Culture Indicated? Cult not indicated Point of care testing: Point of Care Testing Test Results Negative Imaging Data US - abdomen: Radiologist's impression: PROCEDURE: US ABDOMEN LIMITED INDICATIONS: UPPERABD PAIN/NAUSEA, RISING LIPASE TECHNIQUE: Real-time focused scanning was performed of the abdomen, with image documentation. COMPARISON: None. FINDINGS: Liver is sonographically normal. Gallbladder is sonographically normal. No gallstones. No gallbladder wall thickening. No pericholecystic fluid. Positive sonographic Jeter sign noted. No intrahepatic or extrahepatic biliary tree dilatation. Common bile duct measures 5.7 mm. Pancreas is sonographically normal. IMPRESSION: 1. No sonographic evidence of cholelithiasis or cholecystitis. 2. No biliary tree dilatation. 3. Pancreas and liver are sonographically normal. Dictated by: Leta Gimenez MD, PhD on 10/03/2018 at 10:03 Approved by: Leta Gimenez MD, PhD on 10/03/2018 at 10:04 CT scan - abdomen: Radiologist's impression: PROCEDURE: CT ABDOMEN PELVIS W CON INDICATIONS: severe abdominal pain, nausea TECHNIQUE: After the administration of intravenous contrast, 5 mm thick sections acquired from the diaphragm to the symphysis. 5 mm coronal and sagittal reformats were acquired. For radiation dose reduction, the following was used: automated exposure control, adjustment of mA and/or kV according to patient size. COMPARISON: None. FINDINGS: Image quality: Excellent. ABDOMEN: Lung bases: Lung bases are clear. Heart size is normal. Solid organs: Liver is normal in size and enhancement. Gallbladder is within normal limits. Biliary system is non dilated. Pancreas enhances normally. Spleen is normal in size and enhancement. No adrenal nodules. Kidneys demonstrate normal size and enhancement, without hydronephrosis. Peritoneum and bowel: Bowel loops demonstrate normal wall thickness and caliber. No free fluid or air. The appendix is normal. Nodes and vessels: No retroperitoneal or mesenteric adenopathy by size criteria. Aorta and inferior vena cava are normal in size. Miscellaneous: No ventral hernias. PELVIS: Genitourinary: Bladder wall thickness is normal. Miscellaneous: No inguinal hernias or adenopathy. Bones: No suspicious bony lesions. No vertebral body compression fractures. IMPRESSION: 1. No acute disease process. 2. No free fluid or free air 3. No dilated loops of bowel 4. No evidence of appendicitis. Dictated by: Leta Gimenez MD, PhD on 10/03/2018 at 12:11 Approved by: Leta Gimenez MD, PhD on 10/03/2018 at 12:16 Discharge Plan Departure Patient Disposition: Home Clinical Impression: Nausea Abdominal pain Qualifiers: Abdominal location: epigastric Qualified Code(s): R10.13 - Epigastric pain Discharge Date/Time: 10/03/18 13:33 Interventions: ED Discharge Assessment Last Done: 10/03/18 13:33 Activity Restrictions/Additional Instructions: Your labs and imaging studies are unremarkable. Your pancreatic labs did rise somewhat since your last visit, but are still within normal limits. There is no evidence of inflammation of your pancreas on the ultrasound or CT scan. You have been worked up broadly for your symptoms, with the possibility of pancreatitis, gallstones, bowel obstruction, and intra-abdominal infection in mind. However, your workup has been unremarkable. It is possible that you have contracted one of the many viruses that caused stomach upset, and that this will pass on its own. However, it is also possible that you have inflammation of your stomach lining, which can lead to an ulcer. You should follow-up with your primary doctor, and possibly Gastroenterology, should your symptoms continue for more than the next few days. Prescriptions: New hydrocodone-acetaminophen 5-325 mg tablet 1 tab PO Q4-6H PRN (Reason: pain) Qty: 14 RF: 0 No Action metformin [Glucophage] 500 mg tablet 1,000 mg PO BID Qty: 360 RF: 1 OneTouch Ultra Blue Test Strip strip .ROUTE .MEDSUPPLY Qty: 50 RF: 1 metoclopramide HCl 5 mg tablet 5 mg PO DAILY Qty: 20 RF: 0 ibuprofen 600 MG tablet 600 mg PO Q6HP PRN (Reason: Pain (Scale Score 1-3)) RF: 0 Microgestin 1.5/30 (21) 1.5-30 mg-mcg tablet 1 tab PO QPM RF: 0 gabapentin 300 mg capsule 300 mg PO DAILY MDD 2 PRN (Reason: pain) RF: 0 Glucose: Home Monitor 1 ea miscellaneous SEE INSTRUCTIONS RF: 0 Test Strips - Freestyle 1 str miscellaneous QID RF: 0 Referrals: [facility] [Provider Group]
[2018-10-03 08:11] LABS: Alanine Aminotransferase 18 IU/L (9-52); Albumin 4.5 g/dL (3.5-5.0); Albumin Globulin Ratio 1.3 (1.0-2.8); Alkaline Phosphatase 61 U/L (38-126); Aspartate Aminotransferase 28 IU/L (14-36); BUN Creatinine Ratio 11.3 (6-22); Bilirubin Total 0.5 mg/dL (0.2-1.3); Blood Urea Nitrogen 9 mg/dL (7-17); Calcium 9.8 mg/dL (8.4-10.2); Carbon Dioxide 23 mmol/L (22-32); Chloride 103 mmol/L (98-107); Estimated Glomerular Filt Rate > 60.0 mL/min (>60); Globulin 3.5 g/dL (1.7-4.1); Glucose 120 mg/dL (70-100); HEMOLYSIS < 15 (0-50); Lipase 241 U/L (23-300); Potassium 3.7 mmol/L (3.4-5.1); Sodium 137 mmol/L (137-145)
[2018-10-03 08:18] LABS: RBC Urine 1-5/HPF (0-5/HPF); WBC Urine 1-5/HPF (0-5/HPF)
[2018-10-03 08:19] LABS: Bacteria Urine Moderate (10-30); Culture Indicated Urine Cult Not Indicated; Squamous Epithelial Cell Urine 5-10 /HPF (0-5/HPF); Transitional Epi Cells Urine 0-1/HPF (0-5/HPF)
[2018-10-03] MEDS: ONDANSETRON 4 MG/2 ML INJ IV (08:23)
[2018-10-03] MEDS: HYDROMORPHONE 1 MG INJ IV ×2 (08:23→10:00)
--- NOTE | 2018-10-03 09:25 | DI.US.S_ITS ---
PROCEDURE: US ABDOMEN LIMITED INDICATIONS: UPPERABD PAIN/NAUSEA, RISING LIPASE TECHNIQUE: Real-time focused scanning was performed of the abdomen, with image documentation. COMPARISON: None. FINDINGS: Liver is sonographically normal. Gallbladder is sonographically normal. No gallstones. No gallbladder wall thickening. No pericholecystic fluid. Positive sonographic Jeter sign noted. No intrahepatic or extrahepatic biliary tree dilatation. Common bile duct measures 5.7 mm. Pancreas is sonographically normal. IMPRESSION: 1. No sonographic evidence of cholelithiasis or cholecystitis. 2. No biliary tree dilatation. 3. Pancreas and liver are sonographically normal. Dictated by: Leta Gimenez MD, PhD on 10/03/2018 at 10:03 Approved by: Leta Gimenez MD, PhD on 10/03/2018 at 10:04
[2018-10-03 09:26] VITALS: BP 117/63; PULSE 78; RESP 18; O2SAT 100
--- NOTE | 2018-10-03 11:56 | DI.CT.S_ITS ---
PROCEDURE: CT ABDOMEN PELVIS W CON INDICATIONS: severe abdominal pain, nausea TECHNIQUE: After the administration of intravenous contrast, 5 mm thick sections acquired from the diaphragm to the symphysis. 5 mm coronal and sagittal reformats were acquired. For radiation dose reduction, the following was used: automated exposure control, adjustment of mA and/or kV according to patient size. COMPARISON: None. FINDINGS: Image quality: Excellent. ABDOMEN: Lung bases: Lung bases are clear. Heart size is normal. Solid organs: Liver is normal in size and enhancement. Gallbladder is within normal limits. Biliary system is non dilated. Pancreas enhances normally. Spleen is normal in size and enhancement. No adrenal nodules. Kidneys demonstrate normal size and enhancement, without hydronephrosis. Peritoneum and bowel: Bowel loops demonstrate normal wall thickness and caliber. No free fluid or air. The appendix is normal. Nodes and vessels: No retroperitoneal or mesenteric adenopathy by size criteria. Aorta and inferior vena cava are normal in size. Miscellaneous: No ventral hernias. PELVIS: Genitourinary: Bladder wall thickness is normal. Miscellaneous: No inguinal hernias or adenopathy. Bones: No suspicious bony lesions. No vertebral body compression fractures. IMPRESSION: 1. No acute disease process. 2. No free fluid or free air 3. No dilated loops of bowel 4. No evidence of appendicitis. Dictated by: Leta Gimenez MD, PhD on 10/03/2018 at 12:11 Approved by: Leta Gimenez MD, PhD on 10/03/2018 at 12:16
[2018-10-03 12:38] VITALS: BP 140/79; PULSE 73; RESP 18; O2SAT 100
[2018-10-03 13:25] VITALS: BP 144/80; PULSE 56; RESP 15; O2SAT 99
== END 2018-10-03 13:33 | disposition home or self-care (01) ==
PROVIDERS: Emergency Provider Emergency Medicine
DX: R10.13 Epigastric pain (principal); R11.0 Nausea
CPT/HCPCS: 36591; 74177; 76705; 80053; 81001; 81025; 83690; 85025; 96374; 96375; 96376; 99283; 99284; J1170; J2405; Q9967

== ENCOUNTER → 2018-10-04 10:13 | Outpatient (CLI) | payer OTHER, MEDICAID, SELFPAY ==
[2018-10-04 12:30] LABS: Hemoglobin A1C% w Est Avg Glu 5.2 % (4.0-6.0)
[2018-10-04 12:55] LABS: Magnesium 1.7 mg/dL (1.6-2.3)
[2018-10-05 09:09] LABS: HCG Quantitative /Beta subunit < 2.39 mIU/mL
== END ==
PROVIDERS: Family Provider Internal Medicine Gastroenterology; PCP Hospitalist; Visit Provider Hospitalist
DX: E28.2 Polycystic ovarian syndrome (principal); R10.32 Left lower quadrant pain; R11.10 Vomiting, unspecified
CPT/HCPCS: 36415; 83036; 83735; 84702

== ENCOUNTER → 2019-10-22 11:42 | Outpatient (CLI) | payer OTHER, MEDICAID, SELFPAY ==
[2019-10-22 12:22] LABS: Add Manual Diff / Slide Review NO; Basophils Absolute Auto 0 /uL (0-100); Basophils Percent Auto 0.5 % (0-2); Eosinophils Absolute Auto 300 /uL (0-450); Eosinophils Percent Auto 3.4 % (2-4); Hematocrit 38.9 % (36-46); Hemoglobin 13.1 g/dL (12.0-16.0); Lymphocytes Absolute Auto 2600 /uL (1100-4500); Lymphocytes Percent Auto 34.9 % (25-40); Mean Corpuscular HGB Conc 33.7 % (30-36); Monocytes Absolute Auto 400 /uL (0-900); Monocytes Percent Auto 5.7 % (3-14); Neutrophils Absolute Auto 4200 /uL (1500-7000); Neutrophils Percent Auto 55.5 % (50-75); Platelet Count 194 X10^3/uL (150-400); Red Blood Cell Count 4.37 X10^6/uL (4.0-5.2); Red Cell Distribution Width 13.7 % (11.6-14.8); White Blood Cell Count 7.6 X10^3/uL (4.5-11.0)
[2019-10-22 12:34] LABS: Hemoglobin A1C% w Est Avg Glu 5.2 % (4.0-6.0)
[2019-10-22 12:36] LABS: Alanine Aminotransferase 12 IU/L (<35); Albumin 4.2 g/dL (3.5-5.0); Albumin Globulin Ratio 1.2 (1.0-2.8); Alkaline Phosphatase 66 U/L (38-126); Aspartate Aminotransferase 26 IU/L (14-36); BUN Creatinine Ratio 17.4 (6-22); Bilirubin Total 0.5 mg/dL (0.2-1.3); Blood Urea Nitrogen 12 mg/dL (7-17); Calcium 9.7 mg/dL (8.4-10.2); Carbon Dioxide 25 mmol/L (22-32); Chloride 106 mmol/L (98-107); Estimated Glomerular Filt Rate > 60.0 mL/min (>60); Globulin 3.5 g/dL (1.7-4.1); Glucose 99 mg/dL (70-100); HEMOLYSIS < 15 (0-50); Potassium 4.2 mmol/L (3.4-5.1); Sodium 137 mmol/L (137-145); Total Protein 7.7 g/dL (6.3-8.2)
[2019-10-22 13:40] LABS: Thyroid Stimulating Hormone 0.52 uIU/mL (0.47-4.68)
== END ==
PROVIDERS: Family Provider Internal Medicine Gastroenterology; Referring Provider Family Medicine; Visit Provider Family Medicine
DX: Z13.29 Encounter for screening for other suspected endocrine disorder (principal); E28.2 Polycystic ovarian syndrome
CPT/HCPCS: 36415; 80053; 83036; 84443; 85025

== ENCOUNTER → 2020-04-04 08:51 | Outpatient (CLI) | payer OTHER, MEDICAID, SELFPAY ==
--- NOTE | 2020-04-04 09:34 | DI.RAD.S_ITS ---
PROCEDURE: XR CHEST 2V INDICATIONS: cough TECHNIQUE: 2 views of the chest were acquired. COMPARISON: [facility], CR, XR CHEST 1 VIEW, 07/27/2019, 21:02. FINDINGS: Surgical changes and devices: None. Lungs and pleura: Lungs are clear. No pleural effusions or pneumothorax. Mediastinum: Mediastinal contours are normal. Heart size is normal. Bones and chest wall: No suspicious bony abnormalities. Soft tissues appear unremarkable. IMPRESSION: No source for cough identified. Dictated by: Oswaldo Hernandez [facility] Interpreted: Nabil Henderson MD on 04/04/2020 at 10:54 Approved by: Nabil Henderson M.D. on 04/04/2020 at 14:46
[2020-04-04 09:38] LABS: COVID19 -Nasal RAPID Negative (Negative)
[2020-04-04 09:52] LABS: Influenza A - CEPHEID Flu A NEGATIVE (NEGATIVE); Influenza B - CEPHEID Flu B NEGATIVE (NEGATIVE)
== END ==
PROVIDERS: Family Provider Internal Medicine Gastroenterology; PCP Family Medicine; Visit Provider Family Medicine
DX: Z11.59 Encounter for screening for other viral diseases (principal); R05 Cough; R68.89 Other general symptoms and signs
CPT/HCPCS: 71046; 87502; 87635

== ENCOUNTER → 2020-04-30 13:18 | Outpatient (CLI) | payer OTHER, MEDICAID, SELFPAY ==
[2020-04-30 14:20] LABS: HCG Quantitative /Beta subunit < 2.4 mIU/mL
[2020-04-30 16:24] LABS: Progesterone, Total 0.79 ng/mL
== END ==
PROVIDERS: Family Provider Internal Medicine Gastroenterology; PCP Family Medicine; Referring Provider Obstetrics & Gynecology; Visit Provider Obstetrics & Gynecology
DX: E28.2 Polycystic ovarian syndrome (principal)
CPT/HCPCS: 36415; 84144; 84702

== ENCOUNTER → 2020-07-03 14:21 | Outpatient (CLI) | payer OTHER, MEDICAID, SELFPAY ==
[2020-07-03 14:44] LABS: COVID19 -Nasal RAPID Negative (Negative)
== END ==
PROVIDERS: Family Provider Internal Medicine Gastroenterology; PCP Family Medicine; Visit Provider Family Medicine
DX: R05 Cough (principal)
CPT/HCPCS: 87635

== ENCOUNTER → 2020-07-03 14:26 | Outpatient (CLI) | payer OTHER, MEDICAID, SELFPAY ==
[2020-07-03 16:10] LABS: Appearance Urine UA CLEAR; Bilirubin Urine UA NEGATIVE (NEGATIVE); Color Urine UA YELLOW; Glucose Urine UA NEGATIVE (Negative); Ketones Urine UA NEGATIVE (NEGATIVE); Leukocyte Esterase Urine UA NEGATIVE (NEGATIVE); Nitrite Urine UA NEGATIVE (Negative); Occult Blood Urine UA NEGATIVE (Negative); Protein Urine UA TRACE (Negative); Specific Gravity Urine UA 1.025 (1.000-1.035); Urobilinogen Urine UA 0.2 E.U./dL (0.2)
[2020-07-03 16:13] LABS: Add Manual Diff / Slide Review NO; Basophils Absolute Auto 0 /uL (0-100); Basophils Percent Auto 0.4 % (0-2); Eosinophils Absolute Auto 700 /uL (0-450); Eosinophils Percent Auto 6.5 % (2-4); Hematocrit 42.9 % (36-46); Hemoglobin 14.7 g/dL (12.0-16.0); Lymphocytes Absolute Auto 3000 /uL (1100-4500); Lymphocytes Percent Auto 29.6 % (25-40); Mean Corpuscular HGB Conc 34.4 % (30-36); Mean Corpuscular Hemoglobin 31.4 PG (26-34); Mean Corpuscular Volume 91.2 fL (80-100); Monocytes Absolute Auto 500 /uL (0-900); Monocytes Percent Auto 4.8 % (3-14); Neutrophils Absolute Auto 5900 /uL (1500-7000); Neutrophils Percent Auto 58.7 % (50-75); Platelet Count 206 X10^3/uL (150-400); Red Cell Distribution Width 13.7 % (11.6-14.8)
[2020-07-03 16:23] LABS: pH Urine UA 5.5 (4.5-8.0)
[2020-07-03 17:16] LABS: Hepatitis B Surface Antigen NEGATIVE s/c (NEGATIVE)
[2020-07-03 17:30] LABS: HIV 1 & 2 Ab/Ag 4th Gen Combo NEGATIVE (NEGATIVE); Hep C Virus Ab w/Reflex Quant NEGATIVE s/c (NEGATIVE)
[2020-07-04 06:28] LABS: RPR Screen Non Reactive (Non Reactive)
[2020-07-04 09:24] LABS: Varicella IgG Antibody 3082 index (Immune >165)
== END ==
PROVIDERS: Family Provider Internal Medicine Gastroenterology; PCP Family Medicine; Referring Provider Obstetrics & Gynecology; Visit Provider Obstetrics & Gynecology
DX: Z34.81 Encounter for supervision of other normal pregnancy, first trimester (principal); R05 Cough
CPT/HCPCS: 36415; 80055; 81003; 86787; 86803; 86850; 86900; 86901; 87086; 87389; 87635

== ENCOUNTER → 2020-08-05 13:13 | Outpatient (CLI) | payer OTHER, MEDICAID, SELFPAY | PROVIDERS: Family Provider Internal Medicine Gastroenterology; PCP Family Medicine; Referring Provider Obstetrics & Gynecology; Visit Provider Obstetrics & Gynecology | DX: Z34.91 Encounter for supervision of normal pregnancy, unspecified, first trimester (principal); Z36.0 Encounter for antenatal screening for chromosomal anomalies | CPT/HCPCS: 36415; 81420 ==

== ENCOUNTER → 2020-08-25 10:37 | Outpatient (CLI) | payer OTHER, MEDICAID, SELFPAY ==
[2020-08-25 14:04] LABS: Urine N gonorrhoeae NOT DETECTED
[2020-08-25 14:06] LABS: Urine Chlamydia NOT DETECTED
== END ==
PROVIDERS: PCP Family Medicine; Visit Provider Obstetrics & Gynecology
DX: Z34.81 Encounter for supervision of other normal pregnancy, first trimester (principal); Z3A.13 13 weeks gestation of pregnancy
CPT/HCPCS: 87491; 87591

== ENCOUNTER 2020-09-12 15:30 | Outpatient (RCR) | payer OTHER, MEDICAID, SELFPAY ==
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
== END 2020-10-23 11:26 | disposition home or self-care (01) ==
LOC: SP 15:30
PROVIDERS: Family Provider Family Medicine; PCP Family Medicine; Referring Provider Otolaryngology; Visit Provider Otolaryngology
DX: J37.0 Chronic laryngitis (principal); J38.4 Edema of larynx; R49.0 Dysphonia
CPT/HCPCS: 92507; 92520; 92524

== ENCOUNTER 2020-09-16 12:34 | Emergency (ER) | payer OTHER, MEDICAID, SELFPAY ==
[2020-09-16] VITALS (10 sets, daily range): BP systolic 129–141; BP diastolic 61–82; PULSE 91–110; RESP 16–20; TEMP 36.6–37.1; O2SAT 95–99; BMI 38.7
[2020-09-16] MEDS: SODIUM CHLORIDE 0.9% 1,000 ML 1000 ML IV (13:00)
--- NOTE | 2020-09-16 13:02 | ED_ITS ---
HPI - Nausea/Vomiting/Diarrhea General Chief complaint: Nausea/Vomiting/Diarrhea Stated complaint: SOB 16 WKS NAUSEA COUGH HEADACHE Time Seen by Provider: 09/16/20 12:42 Source: patient Mode of arrival: Ambulatory Limitations: no limitations History of Present Illness HPI Narrative: 24-year-old female who is 16 weeks 6 days is a with a confirmed IUP who is here for evaluation of 6 days of nausea vomiting and diarrhea. She states that the nausea and vomiting is not necessarily new. Things have been worse during the but she even had it prior to her . The diarrhea has been new over the past 6 days. She has a has similar symptoms. He was tested for COVID-19 this morning and she stated that it was negative. She has not any sick contacts. No recent travel. No recent antibiotics. She has been taking Zofran at home with only slight improvement. No fevers. She states she thinks she can feel the baby moving. Is not having any vaginal bleeding or urinary symptoms. Related Data Home Medications Medication Instructions Recorded Confirmed inositol 2,000 mg-D chiro inositol ea PO 07/03/20 07/28/20 50 mg oral powder packet Previous Rx's Medication Instructions Recorded blood sugar diagnostic #50 each 10/18/18 Glucose: Home Monitor #1 ea 08/17/19 blood sugar test strips #100 each 08/17/19 lancets #100 each 08/17/19 metformin 500 mg tablet See Rx Instructions .ROUTE 01/11/20 .COMPLEX #180 tab vitamins no.119-iron 1 tab PO DAILY #100 tab 04/15/20 fumarate 29 mg-folic acid 1 mg tablet albuterol sulfate 90 mcg/actuation 2 puff INHALATION .q4-6 hours PRN 08/13/20 aerosol inhaler #8.5 gram pantoprazole 20 mg tablet,delayed 20 mg PO DAILY #30 tab 08/25/20 release ondansetron 4 mg PO Q6H PRN #14 tab 09/16/20 Allergies Allergy/AdvReac Type Severity Reaction Status Date / Time No Known Drug Allergies Allergy Verified 09/16/20 12:40 Review of Systems Constitutional Constitutional: Denies fever(s) and Denies headache(s) ENT Ears, Nose, Mouth, and Throat: Denies headache(s) Cardiovascular Cardiovascular: Denies chest pain and Denies dyspnea Respiratory Respiratory: Denies dyspnea Gastrointestinal Gastrointestinal: Denies abdominal pain, Reports diarrhea, Reports nausea and Reports vomiting Genitourinary Genitourinary: Denies dysuria Genitourinary: Denies abnormal vaginal bleeding and Denies dysuria Musculoskeletal Musculoskeletal: Denies arthralgias and Denies myalgias Integumentary/Breasts Skin/Breast: Denies lesions and Denies rash Neurologic Neurologic: Denies behavioral changes and Denies headache(s) Psychiatric Psychiatric: Denies behavioral changes Hematologic/Lymphatic On Anticoagulants: No Allergic/Immunologic Allergic/Immunologic: Denies urticaria Patient History Medical History Acute bronchitis (~03/2020) Acute pain of right shoulder (08/29/17) Asthma (~2000) Cervical paraspinal muscle spasm (~2016) Dysmenorrhea (~2006) Frequent loose stools (~1993) Gastritis (~2018) Hemorrhoids (~2014) Laryngitis, chronic PCOS (polycystic ovarian syndrome) (~2001) Shoulder pain, right Skin lesion of right arm (~2013) Surgical History History of third molar tooth extraction History of tonsillectomy and adenoidectomy Status post tonsillectomy and adenoidectomy Family History (Updated 07/03/20 @ 10:38 by Holli Meyer RN) Mother Hyperlipidemia Diabetes mellitus Father No problems noted. Grandmother Heart disease Emphysema lung Smoker Grandfather Family estrangement Grandmother No problems noted. Grandfather No problems noted. Social History household members: significant other and children Smoking Status: Never smoker alcohol intake: current Smoking Status: Never smoker alcohol intake frequency: holidays/special occasions only Substance Use Type: marijuana Exam Initial Vital Signs Initial Vital Signs: Vital Signs Temperature 97.8 F 09/16/20 12:35 Pulse Rate 102 H 09/16/20 12:35 Respiratory Rate 16 09/16/20 12:35 Blood Pressure 141/82 H 09/16/20 12:35 Pulse Oximetry 96 09/16/20 12:35 Const General: cooperative and comfortable Limitations: mental status not altered HENMT Head: normal to inspection and normocephalic Resp Effort & Inspection: normal respiratory effort Auscultation: clear to auscultation bilaterally Cardio Rate: regular rate GI Inspection: non-distended Palpation: soft and No firm Skin Lesions: no lesions Rashes: no rashes Neuro General: patient alert and patient awake Cognition: normal cognition Speech: speech normal Motor: muscle tone normal throughout Extrem General: normal to inspection and capillary refill normal Psych Appearance: grossly normal and well kempt Course Orders Ordered: ED Orders 09/16/20 13:16 COVID19 -Nasal swab/Pre-Proc Stat Discontinued Medications Albuterol (Albuterol 2.5 Mg/3 Ml Neb (Adult)) 2.5 mg INH NOW ONE Stop: 09/16/20 13:03 Last Admin: 09/16/20 13:44 Dose: 2.5 mg Documented by: LOVE Albuterol (Albuterol 2.5 Mg/3 Ml Neb (Adult)) 2.5 mg INH NOW ONE Stop: 09/16/20 14:36 Last Admin: 09/16/20 14:51 Dose: 2.5 mg Documented by: Sodium Chloride (Normal Saline 0.9%) 1,000 mls @ 1,000 mls/hr IV BOLUS ONE Stop: 09/16/20 13:42 Last Infusion: 09/16/20 14:01 Dose: 0 mls/hr Documented by: Admin: 09/16/20 13:00 Dose: 1,000 mls/hr Documented by: JOSE ARMANDO Vital Signs Vital signs: Vital Signs - 8 hr 09/16/20 12:35 09/16/20 13:27 09/16/20 13:30 Temperature 97.8 F Pulse Rate 102 H 102 H 97 H Respiratory Rate 16 Blood Pressure 141/82 H Pulse Oximetry 96 95 95 09/16/20 13:49 09/16/20 14:00 09/16/20 14:10 Temperature Pulse Rate 91 H 105 H Respiratory Rate 20 Blood Pressure 132/76 Pulse Oximetry 96 99 98 09/16/20 14:43 09/16/20 14:55 Temperature 98.7 F Pulse Rate 101 H 100 H Respiratory Rate 18 16 Blood Pressure 129/61 Pulse Oximetry 98 98 MDM - Nausea/Vomiting/Diarrhea Medical Records Attestation: I reviewed the patient's medical records. Lab Data Attestation: I reviewed the patient's lab results. Labs: Lab Results 09/16/20 Range/Units 13:16 SARS-CoV-2 (PCR) Negative (Negative) Urine Dip Bedside Urine Glucose Negative Bedside Urine Bilirubin - Negative Bedside Urine Ketone - Negative Urine Specific [place] 1.020 Bedside Urine Occult Blood - Negative Bedside Urine pH 7.0 Bedside Urine Protein - Negative Bedside Urine Urobilinogen - Negative Bedside Urine Nitrite - Negative Bedside Urine Leukocytes - Negative Esterase MDM Narrative Medical decision making narrative: COVID is negative. Is tolerating oral intake. Received fluids. Received a couple albuterol treatments which did improve her wheezing. She has a prescription for albuterol that she can brain picker upon discharge the local pharmacy. She also has Claritin at home that she can take. Will refill a prescription for Zofran. She was given return precautions and follow-up instructions. He expressed understanding and agreement. Discharge Plan Departure Patient Disposition: Home Clinical Impression: Nausea and vomiting in , Diarrhea Instructions: Diarrhea, DI for Nausea -- Adult Activity Restrictions/Additional Instructions: Recommend that you continue all of the instructions given to you by your OB provider. Be sure to increase your fluid intake by drinking small amounts of fluid over longer periods of time. Keep all of your scheduled medical appointments. Return to the emergency department for any new or worsening symptoms. Prescriptions: New ondansetron 4 mg tablet,disintegrating 4 mg PO Q6H PRN (Reason: nausea and vomiting) Qty: 14 RF: 0 No Action (DME) OneTouch Ultra Blue Test Strip strip See Dose Instructions .ROUTE .MEDSUPPLY Qty: 50 RF: 11 (DME) Glucose: Home Monitor 0 .Route .MEDSUPPLY Qty: 1 RF: 0 (DME) blood sugar test strips Qty: 100 RF: 6 (DME) lancets Qty: 100 RF: 6 metformin 500 mg tablet See Rx Instructions .ROUTE .COMPLEX Qty: 180 RF: 2 albuterol sulfate [ProAir HFA] 90 mcg/actuation HFA aerosol inhaler 2 puff INHALATION .q4-6 hours PRN (Reason: shortness of breath or wheezing) Qty: 8.5 RF: 3 PNV 119-iron fum-folic acid 29 mg iron- 1 mg tablet 1 tab PO DAILY Qty: 100 RF: 3 inositol-D chiro inositol 2,000-50 mg powder in packet PO RF: 0 pantoprazole [Protonix] 20 mg tablet,delayed release (DR/EC) 20 mg PO DAILY Qty: 30 RF: 3 Referrals: Glynn Aguirre DO [Primary Care Provider] -
--- NOTE | 2020-09-16 13:20 | PC.NURSE ---
pt is 16 weeks , having abd pain, cough, wheezing, nausea, vomiting, diarrhea. bleeding vaginally only after sex. md sent here for further evaluation. wheezing noted all lobes, barking cough noted
[2020-09-16 13:41] LABS: COVID19 -Nasal RAPID Negative (Negative)
[2020-09-16] MEDS: ALBUTEROL 2.5 MG/3 ML NEB (ADULT) INH ×2 (13:44→14:51)
== END 2020-09-16 15:23 | disposition home or self-care (01) ==
PROVIDERS: Emergency Provider Emergency Medicine; Family Provider Family Medicine; PCP Family Medicine
DX: O26.892 Other specified pregnancy related conditions, second trimester (principal); R19.7 Diarrhea, unspecified; R11.2 Nausea with vomiting, unspecified; Z3A.16 16 weeks gestation of pregnancy; Z20.822 Contact with and (suspected) exposure to COVID-19
CPT/HCPCS: 81003; 87635; 94150; 94640; C9803; J7613

== ENCOUNTER 2020-09-16 20:58 | Emergency (ER) | payer OTHER, MEDICAID, SELFPAY ==
[2020-09-16] VITALS (8 sets, daily range): BP systolic 113–140; BP diastolic 55–73; PULSE 111–143; RESP 19–42; TEMP 37.1; O2SAT 91–97; BMI 38.7
[2020-09-16] MEDS: IPRATROPIUM 0.5 MG/2.5 ML NEB 1.5 MG INH (21:14)
[2020-09-16] MEDS: ALBUTEROL 2.5 MG/3 ML NEB (ADULT) 7.5 MG INH (21:14)
[2020-09-16 21:20] LABS: Add Manual Diff / Slide Review NO; Basophils Absolute Auto 100 /uL (0-100); Basophils Percent Auto 0.5 % (0-2); Eosinophils Absolute Auto 600 /uL (0-450); Eosinophils Percent Auto 4.5 % (2-4); Hemoglobin 14.1 g/dL (12.0-16.0); Lymphocytes Absolute Auto 1800 /uL (1100-4500); Lymphocytes Percent Auto 13.3 % (25-40); Mean Corpuscular HGB Conc 34.5 % (30-36); Mean Corpuscular Hemoglobin 31.5 PG (26-34); Mean Corpuscular Volume 91.2 fL (80-100); Monocytes Absolute Auto 600 /uL (0-900); Monocytes Percent Auto 4.1 % (3-14); Neutrophils Absolute Auto 10600 /uL (1500-7000); Neutrophils Percent Auto 77.6 % (50-75); Platelet Count 184 X10^3/uL (150-400); Red Blood Cell Count 4.49 X10^6/uL (4.0-5.2); Red Cell Distribution Width 13.2 % (11.6-14.8); White Blood Cell Count 13.6 X10^3/uL (4.5-11.0)
[2020-09-16] MEDS: ONDANSETRON 4 MG/2 ML INJ (21:22)
[2020-09-16] MEDS: SODIUM CHLORIDE 0.9% 1,000 ML 1000 ML IV (21:22)
[2020-09-16] MEDS: MAGNESIUM SULFATE 2 GM/50 ML PIGGYBACK IV (21:23)
[2020-09-16 21:30] LABS: D Dimer 434 ng/mL (<230)
[2020-09-16 21:34] LABS: Calcium 9.8 mg/dL (8.4-10.2); Carbon Dioxide 22 mmol/L (22-32); Chloride 104 mmol/L (98-107); Estimated Glomerular Filt Rate > 60.0 mL/min (>60); Glucose 114 mg/dL (70-100); HEMOLYSIS 26 (0-50); Potassium 3.8 mmol/L (3.4-5.1); Sodium 138 mmol/L (137-145)
[2020-09-16 21:39] LABS: BUN Creatinine Ratio 3.8 (6-22); Blood Urea Nitrogen 2 mg/dL (7-17)
--- NOTE | 2020-09-16 21:57 | ED.ASTHMA ---
HPI - Asthma General Chief Complaint: Asthma Stated Complaint: difficulty breathing Time Seen by Provider: 09/16/20 21:03 Source: patient Mode of arrival: Ambulatory Limitations: no limitations History of Present Illness HPI Narrative: 24-year-old female nonsmoker with a history of asthma and diabetes is a at 16 weeks with confirmed IUP who is here for the 2nd time today. She has been having increasing shortness of breath and fatigue and was seen earlier today for shortness of breath and wheezing as well as nausea, vomiting and diarrhea. She does state that she frequently has a rather weak stomach and had nausea and vomiting even before the but that it has been worse during . She states that she started getting noticeably worse in the past few days. She vomited some blood a few days ago. Minimal exertion makes her profoundly short of breath. She denies any fever or chills. She denies any history of blood clot, cancer, recent travel. She's had no vaginal bleeding or discharge. She denies dysuria, frequency, or urgency. She denies exposure to anyone known or suspected of having COVID. She was tested earlier today and was negative in our lab. Related Data Home Medications Medication Instructions Recorded Confirmed inositol 2,000 mg-D chiro inositol ea PO 07/03/20 07/28/20 50 mg oral powder packet Previous Rx's Medication Instructions Recorded blood sugar diagnostic #50 each 10/18/18 Glucose: Home Monitor #1 ea 08/17/19 blood sugar test strips #100 each 08/17/19 lancets #100 each 08/17/19 metformin 500 mg tablet See Rx Instructions .ROUTE 01/11/20 .COMPLEX #180 tab vitamins no.119-iron 1 tab PO DAILY #100 tab 04/15/20 fumarate 29 mg-folic acid 1 mg tablet albuterol sulfate 90 mcg/actuation 2 puff INHALATION .q4-6 hours PRN 08/13/20 aerosol inhaler #8.5 gram pantoprazole 20 mg tablet,delayed 20 mg PO DAILY #30 tab 08/25/20 release ondansetron 4 mg PO Q6H PRN #14 tab 09/16/20 Allergies Allergy/AdvReac Type Severity Reaction Status Date / Time No Known Drug Allergies Allergy Verified 09/16/20 21:06 Review of Systems Constitutional Constitutional: Reports chills, Denies fatigue, Denies fever(s), Denies frequent falls, Denies lethargy and Denies weakness Eyes Eyes: Denies change in vision, Denies eye discharge, Denies irritation and Denies loss of vision ENT Ears, Nose, Mouth, and Throat: Denies change in voice, Denies dizziness, Denies neck pain, Denies sore throat and Denies throat swelling Cardiovascular Cardiovascular: Reports chest pain, Denies irregular heart rhythm, Denies lightheadedness, Denies palpitations, Reports dyspnea, Reports dyspnea on exertion and Denies orthopnea Respiratory Respiratory: Reports cough, Reports dyspnea, Reports dyspnea on exertion and Reports wheezing Gastrointestinal Gastrointestinal: Reports abdominal pain, Denies change in bowel habits, Reports diarrhea, Reports nausea and Reports vomiting Musculoskeletal Musculoskeletal: Denies neck pain and Denies numbness Integumentary/Breasts Skin/Breast: Denies pruritus, Denies erythema, Denies rash and Denies wounds Neurologic Neurologic: Denies behavioral changes, Denies confusion, Denies dizziness, Denies frequent falls, Denies loss of vision, Denies numbness and Denies weakness Psychiatric Psychiatric: Denies anxiety, Denies behavioral changes, Denies confusion, Denies depression, Denies homicidal ideation and Denies suicidal ideation Endocrine Endocrine: Denies fatigue, Denies flushing and Denies palpitations Hematologic/Lymphatic Hematologic/Lymphatic: Denies easy bruising Allergic/Immunologic Allergic/Immunologic: Denies urticaria, Denies throat swelling and Reports wheezing Patient History Medical History Acute bronchitis (~03/2020) Acute pain of right shoulder (08/29/17) Asthma (~2000) Cervical paraspinal muscle spasm (~2016) Dysmenorrhea (~2006) Frequent loose stools (~1993) Gastritis (~2018) Hemorrhoids (~2014) Laryngitis, chronic PCOS (polycystic ovarian syndrome) (~2001) Shoulder pain, right Skin lesion of right arm (~2013) Surgical History History of third molar tooth extraction History of tonsillectomy and adenoidectomy Status post tonsillectomy and adenoidectomy Family History Mother Hyperlipidemia Diabetes mellitus Father No problems noted. Grandmother Heart disease Emphysema lung Smoker Grandfather Family estrangement Grandmother No problems noted. Grandfather No problems noted. Social History household members: significant other and children Smoking Status: Never smoker alcohol intake: current Smoking Status: Never smoker alcohol intake frequency: holidays/special occasions only Substance Use Type: marijuana Exam Narrative Exam Narrative: GENERAL: [24] year old patient appears stated age. Well-nourished, well-developed patient, in obvious respiratory distress with increased work of breathing and some evidence of conversational dyspnea HEAD: Atraumatic. Normocephalic. EYES: Pupils equal round and reactive. Extraocular motions intact. No scleral icterus. No injection or drainage. ENT: Nose without bleeding, purulent drainage. Throat without erythema, tonsillar hypertrophy or exudate. Airway patent. NECK: Trachea midline. Non tender CARDIOVASCULAR: Tachycardic but regular rhythm without murmurs, gallops, or rubs. RESPIRATORY: Increased work of breathing, and decreased breath sounds bilaterally with faint crackles in bilateral bases, prolonged expiratory phase, wheezes in bilateral apices, use of accessory muscles GASTROINTESTINAL: Abdomen soft, non-tender, nondistended. EXTREMITIES: No edema or joint tenderness. BACK: Nontender without deformity or crepitance. No flank tenderness. NEURO: AOx3. SKIN: No rash or erythema of visible areas Initial Vital Signs Initial Vital Signs: Vital Signs Temperature 98.7 F 09/16/20 21:07 Pulse Rate 127 H 09/16/20 21:07 Respiratory Rate 42 H 09/16/20 21:07 Blood Pressure 140/73 09/16/20 21:07 Pulse Oximetry 95 09/16/20 21:07 Course Course Course Narrative: given ill appearance, tachycardia, hypoxia, cough, and risk for PE the YEARS algorithm was employed. Her risk includes , sedentary lifestyle. Asthma treatments and fluid resuscitation have not improved her clinical picture whatsoever raising PE to being among the most likely diagnoses. DDimer cutoff is 500ng/mL of FEU, however our lab uses DDU. Her measured value of DDU DDimer is 434, YEARS Algorithm indicates CTA. I discussed the risk and benefit at length with the patient and her significant other and they understand the risk and agree with CTA and have signed the necessary consent. Upon receipt of CTA calls placed first to [facility] in [place], but no beds 1255 - call to [facility]. There are beds available. Images and face sheet have been sent. 0200 - Thoracic Surgery from [facility] consulted. Happy to accept patient, requests we keep her NPO. No further recs 0315 - [facility] calls back with bed information. Patient resting. Ambulance contacted 0415 - patient removes oxygen and ambulates to bathroom, upon return she is significantly SOB, tachycardic with increased work of breathing. O2 increased to 5L. 0420 - Ambulance arrives and we hold off on loading her up as she is taking quite some time to recover. 0430 - call to [facility] for weather check. 0440 - [facility] can fly, will arrive in 30-40. ambulance thanked, but patient is now too risky to transport by ground. Orders Ordered: ED Orders 09/16/20 21:15 Basic Metabolic Panel Stat Complete Blood Count AUTO DIFF Stat D Dimer Stat 09/16/20 22:23 US periph venous low extrem bi Stat 09/16/20 23:26 CT angio chest PE protocol Stat 09/17/20 01:14 Lactate (Lactic Acid) Stat 09/17/20 01:32 Blood Culture Stat 09/17/20 03:29 Arterial Blood Gas Stat Discontinued Medications Albuterol (Albuterol 2.5 Mg/3 Ml Neb (Adult)) 7.5 mg INH NOW ONE Stop: 09/16/20 21:13 Last Admin: 09/16/20 21:14 Dose: 7.5 mg Documented by: JASWANT Albuterol/Ipratropium (Albuterol/Ipratropium 3 Ml Ampul) 3 ml INH NOW ONE Stop: 09/17/20 05:11 Last Admin: 09/17/20 05:11 Dose: 3 ml Documented by: JASWANT Sodium Chloride (Normal Saline 0.9%) 1,000 mls @ 1,000 mls/hr IV BOLUS ONE Stop: 09/16/20 22:09 Last Infusion: 09/16/20 23:15 Dose: 0 mls/hr Documented by: Admin: 09/16/20 21:22 Dose: 1,000 mls/hr Documented by: DEEPTI Magnesium Sulfate (Magnesium Sulfate) 2 gm in 50 mls @ 150 mls/hr IV NOW ONE Stop: 09/16/20 21:30 Last Infusion: 09/16/20 21:47 Dose: 0 mls/hr Documented by: DEEPTI Cosigned by: JOSE MANUEL Admin: 09/16/20 21:23 Dose: 150 mls/hr Documented by: DEEPTI Cosigned by: HAILY Piperacillin/Tazobactam/Dextrose (Zosyn) 4.5 gm in 100 mls @ 200 mls/hr IV NOW ONE Stop: 09/17/20 01:42 Last Admin: 09/17/20 03:50 Dose: Not Given Documented by: DEEPTI Piperacillin Sod/Tazobactam (Sod 4.5 gm/ Sodium Chloride) 100 mls @ 200 mls/hr IV NOW ONE Stop: 09/17/20 02:29 Last Infusion: 09/17/20 02:40 Dose: 0 mls/hr Documented by: Admin: 09/17/20 02:02 Dose: 200 mls/hr Documented by: DEEPTI Sodium Chloride (Normal Saline 0.9%) 2,055 mls @ 685 mls/hr 30 ml/kg infuse over 3 hr (2055 ml) IV NOW ONE Stop: 09/17/20 04:59 Last Infusion: 09/17/20 05:14 Dose: 0 mls/hr Documented by: Admin: 09/17/20 02:01 Dose: 685 mls/hr Documented by: DEEPTI Sodium Chloride (Normal Saline 0.9%) 1,000 mls @ 1,000 mls/hr IV BOLUS ONE Stop: 09/17/20 03:00 Last Admin: 09/17/20 03:52 Dose: Not Given Documented by: DEEPTI Ipratropium [place] (Ipratropium 0.5 Mg/2.5 Ml Neb) 1.5 mg INH NOW ONE Stop: 09/16/20 21:13 Last Admin: 09/16/20 21:14 Dose: 1.5 mg Documented by: JASWANT Levalbuterol HCl (Levalbuterol 1.25 Mg/0.5 Ml Neb) 1.25 mg INH NOW ONE Stop: 09/17/20 02:13 Last Admin: 09/17/20 02:13 Dose: 1.25 mg Documented by: JASWANT Reevaluation(s) Reevaluation #1: upon receipt of CT multiple treatments ordered PPI held until consultation Vital Signs Vital signs: Vital Signs - 8 hr 09/16/20 22:00 09/16/20 22:30 09/16/20 22:49 Pulse Rate 118 H 127 H 123 H Respiratory Rate 23 23 22 Blood Pressure 113/57 L 113/60 Pulse Oximetry 95 97 95 09/16/20 23:00 09/16/20 23:30 09/16/20 23:39 Pulse Rate 122 H 143 H 133 H Respiratory Rate 19 32 H 23 Blood Pressure 114/55 L 135/65 129/61 Pulse Oximetry 93 91 92 09/17/20 00:00 09/17/20 00:30 09/17/20 01:00 Pulse Rate 130 H 126 H 125 H Respiratory Rate 19 21 23 Blood Pressure Pulse Oximetry 90 L 96 93 09/17/20 01:30 09/17/20 02:00 09/17/20 02:12 Pulse Rate 137 H 132 H 133 H Respiratory Rate 25 H 22 24 Blood Pressure Pulse Oximetry 95 93 93 09/17/20 02:30 09/17/20 02:47 09/17/20 02:55 Pulse Rate 124 H 123 H Respiratory Rate 28 H 26 H Blood Pressure 129/61 124/75 Pulse Oximetry 93 92 09/17/20 03:00 09/17/20 03:30 09/17/20 05:10 Pulse Rate 123 H 133 H 127 H Respiratory Rate 22 32 H 26 H Blood Pressure 124/73 126/65 Pulse Oximetry 94 91 MDM - Asthma Lab Data Result diagrams: 09/16/20 21:15 09/16/20 21:15 Labs: Lab Results 09/16/20 09/16/20 09/16/20 Range/Units 21:15 21:15 21:15 WBC 13.6 H (4.5-11.0) X10^3/uL RBC 4.49 (4.0-5.2) X10^6/uL Hgb 14.1 (12.0-16.0) g/dL Hct 41.0 (36-46) % MCV 91.2 (80-100) fL MCH 31.5 (26-34) PG MCHC 34.5 (30-36) % RDW 13.2 (11.6-14.8) % Plt Count 184 (150-400) X10^3/uL Neut % (Auto) 77.6 H (50-75) % Lymph % (Auto) 13.3 L (25-40) % Dukes % (Auto) 4.1 (3-14) % Eos % (Auto) 4.5 H (2-4) % Baso % (Auto) 0.5 (0-2) % Neut # (Auto) 84419 H (6441-0145) /uL Lymph # (Auto) 1800 (9153-5066) /uL Dukes # (Auto) 600 (0-900) /uL Eos # (Auto) 600 H (0-450) /uL Baso # (Auto) 100 (0-100) /uL D-Dimer 434 H (<230) ng/mL ABG pH (7.35-7.45) ABG pCO2 (35-45) mmHg ABG pO2 (80-100) mmHg ABG HCO3 (22-26) mmol/L ABG Total CO2 (21-31) mmol/L ABG O2 Saturation (95-100) % ABG Base Excess (-2-2) mmol/L FiO2 Sodium 138 (137-145) mmol/L Potassium 3.8 (3.4-5.1) mmol/L Chloride 104 (98-107) mmol/L Carbon Dioxide 22 (22-32) mmol/L BUN 2 L (7-17) mg/dL Creatinine 0.53 (0.52-1.04) mg/dL Estimated GFR > 60.0 (>60) mL/min BUN/Creatinine Ratio 3.8 L (6-22) Glucose 114 H (70-100) mg/dL Lactate (0.7-2.1) mmol/L Calcium 9.8 (8.4-10.2) mg/dL 09/16/20 09/17/20 09/17/20 Range/Units 21:15 03:27 03:29 WBC (4.5-11.0) X10^3/uL RBC (4.0-5.2) X10^6/uL Hgb (12.0-16.0) g/dL Hct (36-46) % MCV (80-100) fL MCH (26-34) PG MCHC (30-36) % RDW (11.6-14.8) % Plt Count (150-400) X10^3/uL Neut % (Auto) (50-75) % Lymph % (Auto) (25-40) % Dukes % (Auto) (3-14) % Eos % (Auto) (2-4) % Baso % (Auto) (0-2) % Neut # (Auto) (9978-7933) /uL Lymph # (Auto) (4057-1642) /uL Dukes # (Auto) (0-900) /uL Eos # (Auto) (0-450) /uL Baso # (Auto) (0-100) /uL D-Dimer (<230) ng/mL ABG pH 7.42 (7.35-7.45) ABG pCO2 33.0 L (35-45) mmHg ABG pO2 67 L (80-100) mmHg ABG HCO3 21 L (22-26) mmol/L ABG Total CO2 22 (21-31) mmol/L ABG O2 Saturation 93 L (95-100) % ABG Base Excess -3.0 L (-2-2) mmol/L FiO2 32 Sodium (137-145) mmol/L Potassium (3.4-5.1) mmol/L Chloride (98-107) mmol/L Carbon Dioxide (22-32) mmol/L BUN (7-17) mg/dL Creatinine (0.52-1.04) mg/dL Estimated GFR (>60) mL/min BUN/Creatinine Ratio (6-22) Glucose (70-100) mg/dL Lactate 2.7 H 1.8 (0.7-2.1) mmol/L Calcium (8.4-10.2) mg/dL Imaging Data CT scan - chest: Radiologist's Impression: Suboptimal demonstration of the pulmonary arteries, no definite PE, mildly dilated pulmonary trunk may reflect pulmonary artery hypertension Patchy mild ground-glass infiltrates bilaterally may reflect pneumonitis Pneumomediastinum most prominent anterior to estela, tracheal or esophageal perforation considered Critical Care Time Critical Care Time Critical Care Time: Yes Total Critical Care Time: 45 Attestation: The high probability of a clinically significant, sudden or life threatening deterioration of the [CV/Pulm] system(s) required my full and direct attention, intervention and personal management. The aggregate critical care time was [45] minutes. This time is in addition to time spent performing reported procedures but includes the following: [x] Data Review and interpretation [x] Patient assessment and monitoring of vital signs [x] Documentation [x] Medication orders and management Discharge Plan Departure Patient Disposition: [facility] Clinical Impression: Acquired pneumomediastinum, Acute hypoxemic respiratory failure, Pneumonitis Sepsis Qualifiers: Sepsis type: sepsis due to unspecified organism Sepsis acute organ dysfunction status: unspecified Qualified Code(s): A41.9 - Sepsis, unspecified organism Prescriptions: No Action (DME) OneTouch Ultra Blue Test Strip strip See Dose Instructions .ROUTE .MEDSUPPLY Qty: 50 RF: 11 (DME) Glucose: Home Monitor 0 .Route .MEDSUPPLY Qty: 1 RF: 0 (DME) blood sugar test strips Qty: 100 RF: 6 (DME) lancets Qty: 100 RF: 6 metformin 500 mg tablet See Rx Instructions .ROUTE .COMPLEX Qty: 180 RF: 2 albuterol sulfate [ProAir HFA] 90 mcg/actuation HFA aerosol inhaler 2 puff INHALATION .q4-6 hours PRN (Reason: shortness of breath or wheezing) Qty: 8.5 RF: 3 PNV 119-iron fum-folic acid 29 mg iron- 1 mg tablet 1 tab PO DAILY Qty: 100 RF: 3 inositol-D chiro inositol 2,000-50 mg powder in packet PO RF: 0 pantoprazole [Protonix] 20 mg tablet,delayed release (DR/EC) 20 mg PO DAILY Qty: 30 RF: 3 ondansetron 4 mg tablet,disintegrating 4 mg PO Q6H PRN (Reason: nausea and vomiting) Qty: 14 RF: 0 Referrals: Glynn Aguirre DO [Primary Care Provider] -
--- NOTE | 2020-09-16 22:23 | DI.US.S_ITS ---
PROCEDURE: US PERIPH VENOUS LOW EXTREM BI INDICATIONS: SOB TECHNIQUE: Real-time imaging, as well as color and pulse Doppler interrogation, were performed of the deep veins of both legs from the inguinal ligament to the popliteal fossa. COMPARISON: None. FINDINGS: Right: The common femoral, femoral and popliteal veins are normally compressible, and free of intraluminal thrombus. Color and pulse Doppler demonstrate normal phasic intravascular flow. There is normal augmentation response to distal compression maneuver. Left: The common femoral, femoral and popliteal veins are normally compressible, and free of intraluminal thrombus. Color and pulse Doppler demonstrate normal phasic intravascular flow. There is normal augmentation response to distal compression maneuver. IMPRESSION: No evidence of deep vein thrombosis involving either the right or left lower extremities. Dictated by: Leta Gimenez MD, PhD on 09/17/2020 at 7:14 Approved by: Leta Gimenez MD, PhD on 09/17/2020 at 7:15
--- NOTE | 2020-09-16 23:26 | DI.CT.S_ITS ---
PROCEDURE: CT ANGIO CHEST PE PROTOCOL INDICATIONS: tachy, hypoxic, short of breath, , critical Dimer TECHNIQUE: After the administration of intravenous contrast, 2 mm thick sections acquired from the pulmonary apices to the posterior costophrenic angles. 3-dimensional maximum intensity projection (MIP) coronal and sagittal reformats were then acquired through the thorax. For radiation dose reduction, the following was used: automated exposure control, adjustment of mA and/or kV according to patient size. COMPARISON: [facility], CT, CT ABDOMEN PELVIS W CON, 10/03/2018, 11:46. FINDINGS: Image quality: Good. Pulmonary arteries: Main pulmonary artery measures 3.6 cm, (2/56). No central pulmonary embolism seen. Lungs and pleura: Patchy scattered areas of ground-glass opacity most pronounced in the right lower lobe. Right lower lobe calcified granuloma. No pleural effusions or pneumothorax. Central and peripheral airways are patent. Mediastinum: Heart size is within normal limits, without pericardial effusion. Mildly enlarged and prominent mediastinal lymph nodes. Prominent hilar nodes. For example: -Right paratracheal node short axis diameter 1.1 cm, (4/42). -Right lower paratracheal node measuring 0.9 cm, (4/47). -Prevascular node measuring 0.8 cm, (4/44). Thoracic aorta is normal in caliber and enhancement. Small volume of pneumomediastinum most pronounced precarinal and subcarinal, (4/52, 67). There is minimal irregularity near the distal esophagus, (4/111). Bones and chest wall: No suspicious bony lesions. Ribs and thoracic spine appear intact throughout. Thyroid gland is unremarkable. No axillary or supraclavicular adenopathy. Abdomen: Question of cholelithiasis. Visualized upper abdominal solid organs appear normal in the early arterial phase of enhancement. IMPRESSION: 1. No central pulmonary embolism. Mildly dilated main pulmonary artery trunk which raises the possibility of pulmonary arterial hypertension. 2. Mild scattered patchy ground-glass airspace opacity most pronounced in the right lower lobe. Suspect infectious/inflammatory etiology. 3. Small volume of pneumomediastinum. Question of mild irregularity near the distal esophagus. Difficult to exclude esophageal perforation. Tracheal injury could also result in pneumomediastinum but is felt to be less likely. -Consider further evaluation with endoscopy. 4. Mildly enlarged mediastinal lymph node. This report is concordant with the overnight preliminary interpretation. Dictated by: Placido Umana M.D. on 09/17/2020 at 8:53 Approved by: Placido Umana M.D. on 09/17/2020 at 9:13
[2020-09-17] VITALS (16 sets, daily range): BP systolic 124–138; BP diastolic 61–80; PULSE 122–137; RESP 19–33; O2SAT 90–96
[2020-09-17 01:28] LABS: Lactate (Lactic Acid) 2.7 mmol/L (0.7-2.1)
[2020-09-17] MEDS: SODIUM CHLORIDE 0.9% 2,055 ML 685 ML IV (02:01)
[2020-09-17] MEDS: PIPERACILLIN/TAZO 4.5 GM in SODIUM CHLORIDE 0.9% 100 ML 200 ML IV (02:02)
[2020-09-17] MEDS: LEVALBUTEROL 1.25 MG/0.5 ML NEB INH (02:13)
--- NOTE | 2020-09-17 03:00 | PC.NURSE ---
PT's o2 decreasing placed on 2L of oxygen. pt reports improvement with spo2.
[2020-09-17 03:18] LABS: Reflexed Lactate in 2 Hours Y
[2020-09-17 03:49] LABS: Lactate 2HR (Lactic Acid Rflx) 1.8 mmol/L (0.7-2.1)
--- NOTE | 2020-09-17 04:00 | PC.NURSE ---
PT had removed her O2 and ambulated to the bathroom on her own. Upon return to her bed pt was 86% on RA, RR was 32, unable to catch her breath. Replaced o2 and pt still struggling to recover. Placed o2 up to 6L. Ground transport team arrived and provider aware of patient's decline. Provider changed transport from ground to air. Gave pt another duoneb to assist with shortness of breath.
[2020-09-17] MEDS: ALBUTEROL/IPRATROPIUM 3 ML AMPUL INH (05:11)
[2020-09-17 05:15] LABS: HCO3 ABG 21 mmol/L (22-26); Oxygen Saturation ABG 93 % (95-100); PO2 ABG 67 mmHg (80-100); TCO2 ABG 22 mmol/L (21-31); pH ABG 7.42 (7.35-7.45)
[2020-09-17 08:02] LABS: Fractionated Inspired Oxygen 28
[2020-09-24 06:58] LABS: Acinetobacter baumannii Not Detected (Not Detect); Candida albicans Not Detected (Not Detect); Candida glabrata Not Detected (Not Detect); Candida krusei Not Detected (Not Detect); Candida parapsilosis Not Detected (Not Detect); Candida tropicalis Not Detected (Not Detect); E. coli Not Detected (Not Detect); Enterobacter cloacae complex Not Detected (Not Detect); Enterobacteriaceae species Not Detected (Not Detect); Enterococcus species Not Detected (Not Detect); Haemophilus influenzae Not Detected (Not Detect); Listeria monocytogenes Not Detected (Not Detect); Neisseria meningitidis Not Detected (Not Detect); Proteus species Not Detected (Not Detect); Pseudomonas aeruginosa Not Detected (Not Detect); Serratia marcescens Not Detected (Not Detect); Staphylococcus species Not Detected (Not Detect); Streptococcus agalactiae (Gr B Not Detected (Not Detect); Streptococcus pneumonia Not Detected (Not Detect); Streptococcus pyogenes (Gr A) Not Detected (Not Detect); Streptococcus species Not Detected (Not Detect)
== END 2020-09-17 05:30 | disposition short-term general hospital (02) ==
PROVIDERS: Emergency Provider Emergency Medicine; Family Provider Family Medicine; PCP Family Medicine
DX: J98.2 Interstitial emphysema (principal); J96.01 Acute respiratory failure with hypoxia; A41.9 Sepsis, unspecified organism; J18.9 Pneumonia, unspecified organism; R07.9 Chest pain, unspecified; Z3A.16 16 weeks gestation of pregnancy; R00.0 Tachycardia, unspecified; O26.892 Other specified pregnancy related conditions, second trimester; R19.7 Diarrhea, unspecified; R11.2 Nausea with vomiting, unspecified; Z20.822 Contact with and (suspected) exposure to COVID-19
CPT/HCPCS: 36415; 36600; 71275; 80048; 81003; 82805; 83605; 85025; 85379; 87040; 87150; 87205; 87635; 93970; 94150; 94640; 96361; 96365; 99284; 99285; 99291; C9803; J2405; J2543; J3475; J7613; J7614; Q9967

== ENCOUNTER 2020-09-25 19:12 | Emergency (ER) | payer OTHER, MEDICAID, SELFPAY ==
[2020-09-25 19:33] VITALS: BP 142/82; PULSE 120; RESP 21; TEMP 37.2; O2SAT 98; BMI 38.7
--- NOTE | 2020-09-25 20:00 | ED.EXTPRO ---
HPI - Extremity Problem General Chief complaint: Extremity Problem,Nontraumatic Stated complaint: thinks she has a blood clot in her left arm Time Seen by Provider: 09/25/20 20:00 Source: patient Mode of arrival: Ambulatory Limitations: no limitations History of Present Illness HPI Narrative: 25-year-old woman at 14 weeks gestational age discharged from [facility] yesterday after complicated pneumonia with intubation and extended IV antibiotics with PICC line placed in the left upper extremity. PICC line was pulled yesterday and today she is noticing increasing pain and redness in the medial aspect of the left upper arm. She is not noticing increasing fevers, palpitations, tachycardia, shortness of breath. Related Data Home Medications Medication Instructions Recorded Confirmed inositol 2,000 mg-D chiro inositol ea PO 07/03/20 07/28/20 50 mg oral powder packet Previous Rx's Medication Instructions Recorded blood sugar diagnostic #50 each 10/18/18 Glucose: Home Monitor #1 ea 08/17/19 blood sugar test strips #100 each 08/17/19 lancets #100 each 08/17/19 metformin 500 mg tablet See Rx Instructions .ROUTE 01/11/20 .COMPLEX #180 tab vitamins no.119-iron 1 tab PO DAILY #100 tab 04/15/20 fumarate 29 mg-folic acid 1 mg tablet albuterol sulfate 90 mcg/actuation 2 puff INHALATION .q4-6 hours PRN 08/13/20 aerosol inhaler #8.5 gram pantoprazole 20 mg tablet,delayed 20 mg PO DAILY #30 tab 08/25/20 release ondansetron 4 mg PO Q6H PRN #14 tab 09/16/20 Allergies Allergy/AdvReac Type Severity Reaction Status Date / Time No Known Drug Allergies Allergy Verified 09/16/20 21:06 Review of Systems Review of Systems Narrative: Remainder of complete review of systems is otherwise unremarkable except for that included in the HPI. Patient History Medical History Acute bronchitis (~03/2020) Acute pain of right shoulder (08/29/17) Asthma (~2000) Cervical paraspinal muscle spasm (~2016) Dysmenorrhea (~2006) Frequent loose stools (~1993) Gastritis (~2018) Hemorrhoids (~2014) Laryngitis, chronic PCOS (polycystic ovarian syndrome) (~2001) Shoulder pain, right Skin lesion of right arm (~2013) Surgical History History of third molar tooth extraction History of tonsillectomy and adenoidectomy Status post tonsillectomy and adenoidectomy Family History Mother Hyperlipidemia Diabetes mellitus Father No problems noted. Grandmother Heart disease Emphysema lung Smoker Grandfather Family estrangement Grandmother No problems noted. Grandfather No problems noted. Social History household members: significant other and children Smoking Status: Never smoker alcohol intake: current Smoking Status: Never smoker alcohol intake frequency: holidays/special occasions only Substance Use Type: marijuana Exam Narrative Exam Narrative: General: Alert appropriate in no acute distress Respiratory: Able to speak in full sentences, no obvious respiratory distress, lungs are clear without wheezes at this time Cardiac: Regular rate and rhythm, no murmurs no bruits Skin: No obvious rashes, warm and dry Neurologic: Grossly intact no obvious asymmetries or abnormalities Psych: appropriate insight and affect, cooperative Extremity: Area of erythema and tenderness medial aspect of the left arm without axillary adenopathy and neurovascularly intact distally Initial Vital Signs Initial Vital Signs: Vital Signs Temperature 98.9 F 09/25/20 19:33 Pulse Rate 120 H 09/25/20 19:33 Respiratory Rate 21 09/25/20 19:33 Blood Pressure 142/82 H 09/25/20 19:33 Pulse Oximetry 98 09/25/20 19:33 Course Orders Ordered: ED Orders 09/25/20 20:04 periph venous up extrem lt Stat Discontinued Medications Acetaminophen (Acetaminophen 325 Mg Tablet) 975 mg PO NOW ONE Stop: 09/25/20 20:05 Last Admin: 09/25/20 20:12 Dose: 975 mg Documented by: CTRPETRA Vital Signs Vital signs: Vital Signs - 8 hr 09/25/20 19:33 09/25/20 21:49 Temperature 98.9 F Pulse Rate 120 H 101 H Respiratory Rate 21 Blood Pressure 142/82 H 127/60 Pulse Oximetry 98 97 MDM - Extremity (Nontraumatic) Imaging Data Upper extremity ultrasound: Radiologist's Impression: FINDINGS: The internal jugular vein, visualized portions of the subclavian vein, axillary, and brachial veins are free of intraluminal thrombus. Where physically possible, the veins are normally compressible. Color and pulse Doppler demonstrate normal intraluminal flow, with expected phasicity and pulsatility. There is occlusion of the mid to distal cephalic vein. IMPRESSION: 1. Occlusion of the mid to distal cephalic vein. 2. No deep venous thrombosis involving the left upper extremity. 3. The result was discussed with Dr. Alva. Dictated by: Sofia Alford M.D. on 09/25/2020 at 21:28 MDM Narrative Medical decision making narrative: 25-year-old woman with recent hospital discharge after complicated pneumonia with intubation currently in early 2nd trimester of her . Pain and tenderness at the site of her PICC line removal yesterday that continues through today. Yesterday she did note that the PICC line was not flowing the way it should which is why was removed. Talked with Dr Alford. She does have a cephalic vein thrombosis, fairly extensive. It does not involve the deeper venous structures. With no evidence of cellulitis or deep venous thrombosis will treat this as a superficial thrombophlebitis with pain control compression and heat. Did discuss with her the findings as well as the extent of the superficial component and a discussion that if her arm swells or her pain increases ultrasound should be repeated so that we can make sure that she is not developing clots in the deeper upper extremity venous system. Bertin wrap is applied to the upper extremity for stabilization and pain control. She is neurovascularly intact after placement of Bertin wrap by nursing staff. She does find that the pressure is helpful and decreasing overall pain. At this point she is safe for home discharge. Discharge Plan Departure Patient Disposition: Home Clinical Impression: Phlebitis and thrombophlebitis of superficial veins of upper extremities Qualifiers: Laterality: left Qualified Code(s): I80.8 - Phlebitis and thrombophlebitis of other sites Instructions: DI for Superficial Thrombophlebitis Activity Restrictions/Additional Instructions: Thank you for coming in today You do have a blood clot from your PICC line. It is in 1 of the smaller superficial veins in your upper arm. It is not a deep blood clot and at this point you do not need any anticoagulation. Typical treatment for this is compression, Tylenol for pain control heat can also be quite helpful. I do not suspect that this is a cellulitis with the red area of your arm however if it is you are already on appropriate antibiotics with the clindamycin you are currently taking If you do notice that the rest of your arm gets more swollen or your having pain in the deeper portion of your upper arm, it would be appropriate to repeat the ultrasound and make sure that this clot has not extended into the deeper vessel system Please follow-up with your primary care doctors within the next 3-4 days. Prescriptions: No Action (DME) OneTouch Ultra Blue Test Strip strip See Dose Instructions .ROUTE .MEDSUPPLY Qty: 50 RF: 11 (DME) Glucose: Home Monitor 0 .Route .MEDSUPPLY Qty: 1 RF: 0 (DME) blood sugar test strips Qty: 100 RF: 6 (DME) lancets Qty: 100 RF: 6 metformin 500 mg tablet See Rx Instructions .ROUTE .COMPLEX Qty: 180 RF: 2 albuterol sulfate [ProAir HFA] 90 mcg/actuation HFA aerosol inhaler 2 puff INHALATION .q4-6 hours PRN (Reason: shortness of breath or wheezing) Qty: 8.5 RF: 3 PNV 119-iron fum-folic acid 29 mg iron- 1 mg tablet 1 tab PO DAILY Qty: 100 RF: 3 inositol-D chiro inositol 2,000-50 mg powder in packet PO RF: 0 pantoprazole [Protonix] 20 mg tablet,delayed release (DR/EC) 20 mg PO DAILY Qty: 30 RF: 3 ondansetron 4 mg tablet,disintegrating 4 mg PO Q6H PRN (Reason: nausea and vomiting) Qty: 14 RF: 0 Referrals: Glynn Aguirre, [Primary Care Provider] -
--- NOTE | 2020-09-25 20:04 | DI.US.S_ITS ---
PROCEDURE: US PERIP VENOUS UP EXTREM LT INDICATIONS: SWELLING PAIN. PICC LINE REMOVED YESTERDAY. TECHNIQUE: Real-time imaging, as well as color and pulse Doppler interrogation, was performed of the left upper extremity deep veins from the inferior neck to the antecubital fossa. COMPARISON: [facility], CT, CT ANGIO CHEST PE PROTOCOL, 09/16/2020, 23:36. [facility], US, US PERIP VENOUS LOW EXTREM BI, 09/16/2020, 22:56. FINDINGS: The internal jugular vein, visualized portions of the subclavian vein, axillary, and brachial veins are free of intraluminal thrombus. Where physically possible, the veins are normally compressible. Color and pulse Doppler demonstrate normal intraluminal flow, with expected phasicity and pulsatility. There is occlusion of the mid to distal cephalic vein. IMPRESSION: 1. Occlusion of the mid to distal cephalic vein. 2. No deep venous thrombosis involving the left upper extremity. 3. The result was discussed with Dr. Alva. Dictated by: Sofia Alford M.D. on 09/25/2020 at 21:28 Approved by: Sofia Alford M.D. on 09/25/2020 at 22:28
[2020-09-25] MEDS: ACETAMINOPHEN 325 MG TABLET 975 MG PO (20:12)
[2020-09-25 21:49] VITALS: BP 127/60; PULSE 101; O2SAT 97
== END 2020-09-25 22:26 | disposition home or self-care (01) ==
PROVIDERS: Emergency Provider Emergency Medicine; Family Provider Family Medicine; PCP Family Medicine
DX: I80.8 Phlebitis and thrombophlebitis of other sites (principal)
CPT/HCPCS: 93971; 99283

== ENCOUNTER → 2020-10-02 10:30 | Outpatient (CLI) | payer OTHER, MEDICAID, SELFPAY ==
[2020-10-04 19:01] LABS: AFP Value 53.6 ng/mL (.); Gest Age on Col Date 20.1 weeks (.); Insulin Dep Diabetes No (.); OSBR Risk 1IN 4947 (.); Results Report (.); Test Results *Screen Negative* (.)
== END ==
PROVIDERS: Family Provider Family Medicine; PCP Family Medicine; Referring Provider Obstetrics & Gynecology; Visit Provider Obstetrics & Gynecology
DX: Z34.82 Encounter for supervision of other normal pregnancy, second trimester (principal); Z3A.19 19 weeks gestation of pregnancy
CPT/HCPCS: 36415; 82105

== ENCOUNTER 2020-10-27 16:36 | Emergency (ER) | payer OTHER, MEDICAID, SELFPAY ==
[2020-10-27] VITALS (31 sets, daily range): BP systolic 112–129; BP diastolic 58–87; PULSE 84–134; RESP 3–55; TEMP 36.5; O2SAT 91–100
--- NOTE | 2020-10-27 16:54 | DI.RAD.S_ITS ---
PROCEDURE: XR CHEST 2V INDICATIONS: shortness of breath TECHNIQUE: 2 views of the chest were acquired. COMPARISON: [facility], CR, XR CHEST 1 VIEW, 07/27/2019, 21:02. [facility], CR, XR CHEST 2V, 04/04/2020, 9:38. FINDINGS: Surgical changes and devices: None. Lungs and pleura: There is mild pulmonary vascular prominence with a basilar predominance. No pleural effusions or pneumothorax. Mediastinum: Mediastinal contours are normal. Heart size is normal. Bones and chest wall: No suspicious bony abnormalities. Soft tissues appear unremarkable. IMPRESSION: 1. Mild pulmonary vascular prominence in the lung bases suggestive of pulmonary edema. This may reflect cardiogenic or noncardiogenic etiologies such as atypical pneumonia. Dictated by: Brandon Whitfield M.D. on 10/27/2020 at 17:15 Approved by: Brandon Whitfield M.D. on 10/27/2020 at 17:16
[2020-10-27] MEDS: ALBUTEROL/IPRATROPIUM 3 ML AMPUL INH ×4 (17:12→20:22)
[2020-10-27 18:15] LABS: Creatine Kinase 29 U/L (30-135)
[2020-10-27 18:16] LABS: Lactate (Lactic Acid) 1.2 mmol/L (0.7-2.1)
[2020-10-27 18:17] LABS: Alanine Aminotransferase 7 IU/L (<35); Albumin 3.5 g/dL (3.5-5.0); Alkaline Phosphatase 72 U/L (38-126); Aspartate Aminotransferase 19 IU/L (14-36); BUN Creatinine Ratio 10.4 (6-22); Bilirubin Total 0.3 mg/dL (0.2-1.3); Blood Urea Nitrogen 5 mg/dL (7-17); Calcium 9.4 mg/dL (8.4-10.2); Carbon Dioxide 24 mmol/L (22-32); Chloride 105 mmol/L (98-107); Estimated Glomerular Filt Rate > 60.0 mL/min (>60); Globulin 3.4 g/dL (1.7-4.1); Glucose 87 mg/dL (70-100); HEMOLYSIS < 15 (0-50); Potassium 3.7 mmol/L (3.4-5.1); Sodium 137 mmol/L (137-145); Total Protein 6.9 g/dL (6.3-8.2)
[2020-10-27 18:22] LABS: Add Manual Diff / Slide Review NO; Basophils Absolute Auto 0 /uL (0-100); Basophils Percent Auto 0.3 % (0-2); Eosinophils Absolute Auto 1000 /uL (0-450); Eosinophils Percent Auto 8.4 % (2-4); Hematocrit 38.7 % (36-46); Hemoglobin 12.7 g/dL (12.0-16.0); Lymphocytes Absolute Auto 2400 /uL (1100-4500); Lymphocytes Percent Auto 20.9 % (25-40); Mean Corpuscular Hemoglobin 30.9 PG (26-34); Mean Corpuscular Volume 93.6 fL (80-100); Monocytes Absolute Auto 600 /uL (0-900); Monocytes Percent Auto 5.8 % (3-14); Neutrophils Absolute Auto 7300 /uL (1500-7000); Neutrophils Percent Auto 64.6 % (50-75); Platelet Count 199 X10^3/uL (150-400); Red Blood Cell Count 4.13 X10^6/uL (4.0-5.2); White Blood Cell Count 11.3 X10^3/uL (4.5-11.0)
[2020-10-27 18:27] LABS: NT-proBNP (BNP-Adult 18+) 30 pg/mL (<125); Troponin I < 0.012 ng/mL (0.01-0.034)
--- NOTE | 2020-10-27 19:02 | ED_ITS ---
HPI - General Adult General Chief complaint: Shortness of Breath/Dyspnea Stated complaint: trouble breathing, had pneumonia, Time Seen by Provider: 10/27/20 18:08 Source: patient Mode of arrival: Ambulatory Limitations: no limitations History of Present Illness HPI narrative: Patient is a 25-year-old female who is here for evaluation of trouble breathing and wheezing. She does have a history of asthma. She is although she states that she knows that her child has had no kidney development and has been told that it is a nonviable . She has decided to carry the child to term and decided against an elective . No lower extremity swelling. She is not having any belly pain or vaginal bleeding. No chest pain. She recently was seen in this emergency department by myself and then subsequently discharged home for asthma issues. She returned shortly afterwards and was subsequently intubated and spend several days intubated on a ventilator at an outside facility. She was diagnosed with pneumonia at that time. Her symptoms from that time have completely resolved in the symptoms that brings her in today are new. She has been using her inhaler at home for the past couple days without much improvement. Related Data Home Medications Medication Instructions Recorded Confirmed inositol 2,000 mg-D chiro inositol ea PO 07/03/20 10/27/20 50 mg oral powder packet Previous Rx's Medication Instructions Recorded blood sugar diagnostic #50 each 10/18/18 Glucose: Home Monitor #1 ea 08/17/19 blood sugar test strips #100 each 08/17/19 lancets #100 each 08/17/19 metformin 500 mg tablet See Rx Instructions .ROUTE 01/11/20 .COMPLEX #180 tab vitamins no.119-iron 1 tab PO DAILY #100 tab 04/15/20 fumarate 29 mg-folic acid 1 mg tablet albuterol sulfate 90 mcg/actuation 2 puff INHALATION .q4-6 hours PRN 08/13/20 aerosol inhaler #8.5 gram pantoprazole 20 mg tablet,delayed 20 mg PO DAILY #30 tab 08/25/20 release ondansetron 4 mg PO Q6H PRN #14 tab 09/16/20 hydroxyzine pamoate 50 mg capsule 50 mg PO QID PRN #30 cap 09/26/20 sertraline 50 mg tablet 50 mg PO DAILY #30 tab 09/26/20 docusate sodium 250 mg capsule 250 mg PO DAILY #30 cap 10/02/20 hydrocortisone 2.5 % topical cream 1 applic AR BID-QID PRN #30 g 10/02/20 with perineal applicator furosemide [Lasix] 20 mg PO DAILY 7 Days #7 tab 10/27/20 prednisone 20 mg PO DAILY 4 Days #4 tab 10/27/20 Allergies Allergy/AdvReac Type Severity Reaction Status Date / Time No Known Drug Allergies Allergy Verified 10/27/20 16:04 Review of Systems Constitutional Constitutional: Denies fever(s) Cardiovascular Cardiovascular: Denies chest pain and Reports dyspnea Respiratory Respiratory: Reports cough and Reports dyspnea Gastrointestinal Gastrointestinal: Denies abdominal pain Genitourinary Genitourinary: Denies dysuria Genitourinary: Denies abnormal vaginal bleeding and Denies dysuria Musculoskeletal Musculoskeletal: Reports system reviewed and no additional complaints, except as documented Integumentary/Breasts Skin/Breast: Reports system reviewed and no additional complaints, except as documented Neurologic Neurologic: Reports system reviewed and no additional complaints, except as doc umented Endocrine Endocrine: Reports system reviewed and no additional complaints, except as documented Hematologic/Lymphatic On Anticoagulants: No Allergic/Immunologic Allergic/Immunologic: Reports system reviewed and no additional complaints, except as documented Patient History Medical History Acute bronchitis (~03/2020) Acute pain of right shoulder (08/29/17) Asthma (~2000) Cervical paraspinal muscle spasm (~2016) Dysmenorrhea (~2006) Frequent loose stools (~1993) Gastritis (~2018) Hemorrhoids (~2014) Laryngitis, chronic PCOS (polycystic ovarian syndrome) (~2001) Respiratory infection Shoulder pain, right Skin lesion of right arm (~2013) Surgical History History of third molar tooth extraction History of tonsillectomy and adenoidectomy Status post tonsillectomy and adenoidectomy Family History Mother Hyperlipidemia Diabetes mellitus Father No problems noted. Grandmother Heart disease Emphysema lung Smoker Grandfather Family estrangement Grandmother No problems noted. Grandfather No problems noted. Social History household members: significant other and children Smoking Status: Never smoker alcohol intake: current Smoking Status: Never smoker alcohol intake frequency: holidays/special occasions only Substance Use Type: marijuana Exam Initial Vital Signs Initial Vital Signs: Vital Signs Temperature 97.7 F 10/27/20 16:44 Pulse Rate 129 H 10/27/20 16:44 Respiratory Rate 24 10/27/20 16:44 Blood Pressure 129/87 10/27/20 16:44 Pulse Oximetry 100 10/27/20 16:44 Const General: cooperative and comfortable Limitations: mental status not altered HENMT Head: normal to inspection and normocephalic Chest Chest: normal inspection of the chest Resp Effort & Inspection: cough and tachypneic Auscultation: wheezes Cardio Rate: tachycardic Rhythm: regular rhythm GI Inspection: non-distended Palpation: soft Skin Lesions: no lesions Rashes: no rashes Neuro General: patient alert, patient awake and patient oriented x3 Cognition: normal cognition Speech: speech normal Extrem General: normal to inspection, capillary refill normal and No edema Psych Appearance: grossly normal and well kempt Course Orders Ordered: Discontinued Medications Albuterol (Albuterol 2.5 Mg/3 Ml Neb (Adult)) 2.5 mg INH NOW ONE Stop: 10/27/20 20:53 Last Admin: 10/27/20 22:31 Dose: 2.5 mg Documented by: CTRQUOC Albuterol/Ipratropium (Albuterol/Ipratropium 3 Ml Ampul) 3 ml INH NOW ONE Stop: 10/27/20 17:02 Last Admin: 10/27/20 17:12 Dose: 3 ml Documented by: LLOYD Albuterol/Ipratropium (Albuterol/Ipratropium 3 Ml Ampul) 3 ml INH Q20M CAESAR Stop: 10/27/20 19:56 Last Admin: 10/27/20 20:22 Dose: 3 ml Documented by: Admin: 10/27/20 19:52 Dose: 3 ml Documented by: Admin: 10/27/20 19:17 Dose: 3 ml Documented by: CTRQUOC Furosemide (Furosemide 40 Mg/4 Ml Vial) 40 mg IV NOW ONE Stop: 10/27/20 19:03 Last Admin: 10/27/20 19:39 Dose: 40 mg Documented by: HAMILTON Magnesium Sulfate (Magnesium Sulfate) 2 gm in 50 mls @ 25 mls/hr IV NOW ONE Stop: 10/27/20 22:45 Last Infusion: 10/27/20 22:51 Dose: 0 mls/hr Documented by: [email or web address] Cosigned by: KGALLAG Admin: 10/27/20 21:08 Dose: 25 mls/hr Documented by: [email or web address] Cosigned by: HAMILTON Methylprednisolone (Methylprednisolone 125 Mg/2 Ml Vial) 125 mg IV NOW ONE Stop: 10/27/20 20:47 Last Admin: 10/27/20 21:08 Dose: 125 mg Documented by: [email or web address] Vital Signs Vital signs: Vital Signs - 8 hr 10/27/20 19:15 10/27/20 19:19 10/27/20 19:30 Pulse Rate 98 H 98 H 107 H Respiratory Rate 33 H 24 19 Blood Pressure Pulse Oximetry 96 96 95 10/27/20 19:53 10/27/20 19:54 10/27/20 20:00 Pulse Rate 84 90 105 H Respiratory Rate 24 Blood Pressure Pulse Oximetry 92 98 97 10/27/20 20:15 10/27/20 20:23 10/27/20 20:30 Pulse Rate 104 H 104 H 98 H Respiratory Rate 3 L 24 17 Blood Pressure Pulse Oximetry 93 94 99 10/27/20 20:44 10/27/20 20:45 10/27/20 21:00 Pulse Rate 115 H 106 H 104 H Respiratory Rate 55 H 34 H 18 Blood Pressure 123/70 Pulse Oximetry 97 97 95 10/27/20 21:15 10/27/20 21:30 10/27/20 21:45 Pulse Rate 112 H 108 H 111 H Respiratory Rate 16 17 30 H Blood Pressure Pulse Oximetry 94 94 94 10/27/20 22:03 10/27/20 22:15 10/27/20 22:30 Pulse Rate 113 H 110 H 106 H Respiratory Rate 39 H 18 28 H Blood Pressure Pulse Oximetry 91 94 95 10/27/20 22:32 10/27/20 22:45 10/27/20 23:00 Pulse Rate 98 H 101 H 104 H Respiratory Rate 20 20 27 H Blood Pressure Pulse Oximetry 95 94 92 10/27/20 23:09 Pulse Rate 95 H Respiratory Rate 18 Blood Pressure 112/58 L Pulse Oximetry 98 Medical Decision Making Medical Records Medical records reviewed: Yes I reviewed the patient's medical records. Lab Data Lab results reviewed: Yes I reviewed the patient's lab results. Result diagrams: 10/27/20 17:45 10/27/20 17:45 Labs: Lab Results 10/27/20 10/27/20 10/27/20 Range/Units 17:45 17:45 17:45 WBC 11.3 H (4.5-11.0) X10^3/uL RBC 4.13 (4.0-5.2) X10^6/uL Hgb 12.7 (12.0-16.0) g/dL Hct 38.7 (36-46) % MCV 93.6 (80-100) fL MCH 30.9 (26-34) PG MCHC 33.0 (30-36) % RDW 14.0 (11.6-14.8) % Plt Count 199 (150-400) X10^3/uL Neut % (Auto) 64.6 (50-75) % Lymph % (Auto) 20.9 L (25-40) % Ritchie % (Auto) 5.8 (3-14) % Eos % (Auto) 8.4 H (2-4) % Baso % (Auto) 0.3 (0-2) % Neut # (Auto) 7300 H (7335-5727) /uL Lymph # (Auto) 2400 (5802-9241) /uL Ritchie # (Auto) 600 (0-900) /uL Eos # (Auto) 1000 H (0-450) /uL Baso # (Auto) 0 (0-100) /uL Sodium 137 (137-145) mmol/L Potassium 3.7 (3.4-5.1) mmol/L Chloride 105 (98-107) mmol/L Carbon Dioxide 24 (22-32) mmol/L BUN 5 L (7-17) mg/dL Creatinine 0.48 L (0.52-1.04) mg/dL Estimated GFR > 60.0 (>60) mL/min BUN/Creatinine Ratio 10.4 (6-22) Glucose 87 (70-100) mg/dL Lactate 1.2 (0.7-2.1) mmol/L Calcium 9.4 (8.4-10.2) mg/dL Total Bilirubin 0.3 (0.2-1.3) mg/dL AST 19 (14-36) IU/L ALT 7 (<35) IU/L Alkaline Phosphatase 72 (38-126) U/L Total Creatine Kinase (30-135) U/L CK-MB (CK-2) CK-MB (CK-2) Rel Index Troponin I (0.01-0.034) ng/mL NT-Pro-B Natriuret Pep (<125) pg/mL Total Protein 6.9 (6.3-8.2) g/dL Albumin 3.5 (3.5-5.0) g/dL Globulin 3.4 (1.7-4.1) g/dL Albumin/Globulin Ratio 1.0 (1.0-2.8) Chlamy pneumoniae PCR (Not Detect) Adenovirus (PCR) (Not Detect) B. pertussis DNA (PCR) (Not Detecte) B.parapertussis DNA PCR (Not Detecte) Coronavirus OC43 (PCR) (Not Detect) Coronavirus HKU1 (PCR) (Not Detect) Coronavirus 229E (PCR) (Not Detect) SARS-CoV-2 (PCR) (Not Detecte) Coronavirus NL63 (PCR) (Not Detect) Human Metapneumovir PCR (Not Detect) Influenza Type A (PCR) (Not Detect) Influenza Type B (PCR) (Not Detect) M. pneumoniae (PCR) (Not Detect) Parainfluenza 1 (PCR) (Not Detect) Parainfluenza 2 (PCR) (Not Detect) Parainfluenza 3 (PCR) (Not Detect) Parainfluenza 4 (PCR) (Not Detect) RSV (PCR) (Not Detect) Entero/Rhino (PCR) (Not Detect) 10/27/20 10/27/20 Range/Units 17:45 17:45 WBC (4.5-11.0) X10^3/uL RBC (4.0-5.2) X10^6/uL Hgb (12.0-16.0) g/dL Hct (36-46) % MCV (80-100) fL MCH (26-34) PG MCHC (30-36) % RDW (11.6-14.8) % Plt Count (150-400) X10^3/uL Neut % (Auto) (50-75) % Lymph % (Auto) (25-40) % Ritchie % (Auto) (3-14) % Eos % (Auto) (2-4) % Baso % (Auto) (0-2) % Neut # (Auto) (7186-7366) /uL Lymph # (Auto) (1413-2670) /uL Ritchie # (Auto) (0-900) /uL Eos # (Auto) (0-450) /uL Baso # (Auto) (0-100) /uL Sodium (137-145) mmol/L Potassium (3.4-5.1) mmol/L Chloride (98-107) mmol/L Carbon Dioxide (22-32) mmol/L BUN (7-17) mg/dL Creatinine (0.52-1.04) mg/dL Estimated GFR (>60) mL/min BUN/Creatinine Ratio (6-22) Glucose (70-100) mg/dL Lactate (0.7-2.1) mmol/L Calcium (8.4-10.2) mg/dL Total Bilirubin (0.2-1.3) mg/dL AST (14-36) IU/L ALT (<35) IU/L Alkaline Phosphatase (38-126) U/L Total Creatine Kinase 29 L (30-135) U/L CK-MB (CK-2) TNP CK-MB (CK-2) Rel Index TNP Troponin I < 0.012 (0.01-0.034) ng/mL NT-Pro-B Natriuret Pep 30 (<125) pg/mL Total Protein (6.3-8.2) g/dL Albumin (3.5-5.0) g/dL Globulin (1.7-4.1) g/dL Albumin/Globulin Ratio (1.0-2.8) Chlamy pneumoniae PCR Not detected (Not Detect) Adenovirus (PCR) Not detected (Not Detect) B. pertussis DNA (PCR) Not detected (Not Detecte) B.parapertussis DNA PCR Not detected (Not Detecte) Coronavirus OC43 (PCR) Not detected (Not Detect) Coronavirus HKU1 (PCR) Not detected (Not Detect) Coronavirus 229E (PCR) Not detected (Not Detect) SARS-CoV-2 (PCR) Not detected (Not Detecte) Coronavirus NL63 (PCR) Not detected (Not Detect) Human Metapneumovir PCR Not detected (Not Detect) Influenza Type A (PCR) Not detected (Not Detect) Influenza Type B (PCR) Not detected (Not Detect) M. pneumoniae (PCR) Not detected (Not Detect) Parainfluenza 1 (PCR) Not detected (Not Detect) Parainfluenza 2 (PCR) Not detected (Not Detect) Parainfluenza 3 (PCR) Not detected (Not Detect) Parainfluenza 4 (PCR) Not detected (Not Detect) RSV (PCR) Not detected (Not Detect) Entero/Rhino (PCR) Not detected (Not Detect) Imaging Data Chest x-ray: Radiologist's Impression: [address] [id number] ReportSigned Patient: Nina Liriano VMR#: [id number]: [id number]:[id number]/Sex: 25 / FDate of Service: 10/27/20Loc: EDAccession Number: [id number] Procedure: XR chest 2V Ordering Provider: Rancho Owens D.O. PROCEDURE: XR CHEST 2V INDICATIONS: shortness of breath TECHNIQUE: 2 views of the chest were acquired. COMPARISON: [facility], CR, XR CHEST 1 VIEW, 07/27/2019, 21:02. [facility], CR, XR CHEST 2V, 04/04/2020, 9:38. FINDINGS: Surgical changes and devices: None. Lungs and pleura: There is mild pulmonary vascular prominence with a basilar predominance. No pleural effusions or pneumothorax. Mediastinum: Mediastinal contours are normal. Heart size is normal. Bones and chest wall: No suspicious bony abnormalities. Soft tissues appear unremarkable. IMPRESSION: 1. Mild pulmonary vascular prominence in the lung bases suggestive of pulmonary edema. This may reflect cardiogenic or noncardiogenic etiologies such as atypical pneumonia. Dictated by: Brandon Whitfield M.D. on 10/27/2020 at 17:15 Approved by: Brandon Whitfield M.D. on 10/27/2020 at 17:16 [facility] Narrative Medical decision making narrative: Patient did receive a nebulizer treatment prior to my initial evaluation and she states she did improve somewhat from that. She did have bilateral wheezing. She was given multiple nebulizer treatments with some improvement. She was then given steroids and also magnesium. Chest x-ray does show no signs of pneumonia but potentially has pulmonary edema. She was given Lasix. She has no chest pain. No lower extremity swelling. Had a long discussion with the patient regarding her symptoms. We discussed 3 options to include being admitted to the hospital for more continuous nebulizer treatments and further evaluation versus staying in the emergency department verses being discharged home. Patient opted to be discharged home. She does have feel Peter L at home. Will put her on steroids. I did inform her that she needs to talk with her primary doctor about further workup to include an echocardiogram. To considered other etiologies such as pulmonary embolism however I feel that since she was improving with the nebulizers this does not fit pulmonary embolism as a diagnosis. She has no lower extremity swelling no indication for antibiotics. Did discuss strict r eturn precautions with the patient. She expressed understanding and agreement. Discharge Plan Departure Patient Disposition: Home Clinical Impression: Asthma with exacerbation, Pulmonary edema Instructions: DI for Asthma -- Adult Activity Restrictions/Additional Instructions: I recommend that you keep your appointment with your primary doctor on . Use your inhaler with the spacer this evening like we discussed. A prescription for steroids was transmitted to [facility] you can start taking those tomorrow. Will also start you on a diuretic to help with what appears to be some fluid around your lungs. I recommend you talk with your primary doctor about further workup of this to include an echocardiogram. Return to the emergency department for any new or worsening symptoms Prescriptions: New prednisone 20 mg tablet 20 mg PO DAILY 4 Days Qty: 4 RF: 0 furosemide [Lasix] 20 mg tablet 20 mg PO DAILY 7 Days Qty: 7 RF: 0 No Action (DME) OneTouch Ultra Blue Test Strip strip See Dose Instructions .ROUTE .MEDSUPPLY Qty: 50 RF: 11 (DME) Glucose: Home Monitor 0 .Route .MEDSUPPLY Qty: 1 RF: 0 (DME) blood sugar test strips Qty: 100 RF: 6 (DME) lancets Qty: 100 RF: 6 metformin 500 mg tablet See Rx Instructions .ROUTE .COMPLEX Qty: 180 RF: 2 albuterol sulfate [ProAir HFA] 90 mcg/actuation HFA aerosol inhaler 2 puff INHALATION .q4-6 hours PRN (Reason: shortness of breath or wheezing) Qty: 8.5 RF: 3 hydroxyzine pamoate 50 mg capsule 50 mg PO QID PRN (Reason: anxiety) Qty: 30 RF: 1 sertraline 50 mg tablet 50 mg PO DAILY Qty: 30 RF: 2 PNV 119-iron fum-folic acid 29 mg iron- 1 mg tablet 1 tab PO DAILY Qty: 100 RF: 3 inositol-D chiro inositol 2,000-50 mg powder in packet PO RF: 0 pantoprazole [Protonix] 20 mg tablet,delayed release (DR/EC) 20 mg PO DAILY Qty: 30 RF: 3 hydrocortisone [Anusol-HC] 2.5 % cream with perineal applicator 1 applic AR BID-QID PRN (Reason: hemorrhoids) Qty: 30 RF: 2 docusate sodium 250 mg capsule 250 mg PO DAILY Qty: 30 RF: 3 ondansetron 4 mg tablet,disintegrating 4 mg PO Q6H PRN (Reason: nausea and vomiting) Qty: 14 RF: 0 Referrals: Glynn Aguirre DO [Primary Care Provider] -
[2020-10-27 19:05] LABS: Adenovirus Not Detected (Not Detect)
[2020-10-27 19:06] LABS: B. parapertussis Not Detected (Not Detecte); Bordetella pertussis Not Detected (Not Detecte); Chlamydophila pneumoniae Not Detected (Not Detect); Coronavirus 229E Not Detected (Not Detect); Coronavirus HKU1 Not Detected (Not Detect); Coronavirus NL 63 Not Detected (Not Detect); Coronavirus OC43 Not Detected (Not Detect); Human Metapneumovirus Not Detected (Not Detect); Human Rhinovirus/Enterovirus Not Detected (Not Detect); Influenza A Not Detected (Not Detect); Influenza B Not Detected (Not Detect); Mycoplasma pneumoniae Not Detected (Not Detect); Parainfluenza Virus 1 Not Detected (Not Detect); Parainfluenza Virus 2 Not Detected (Not Detect); Parainfluenza Virus 3 Not Detected (Not Detect); Parainfluenza Virus 4 Not Detected (Not Detect); Respiratory Syncytial Virus Not Detected (Not Detect); SARS- CoV-2 Not Detected (Not Detecte)
[2020-10-27] MEDS: FUROSEMIDE 40 MG/4 ML VIAL IV (19:39)
[2020-10-27] MEDS: MAGNESIUM SULFATE 2 GM/50 ML PIGGYBACK IV (21:08)
[2020-10-27] MEDS: methylPREDNISolone 125 MG/2 ML VIAL IV (21:08)
[2020-10-27] MEDS: ALBUTEROL 2.5 MG/3 ML NEB (ADULT) INH (22:31)
== END 2020-10-27 23:10 | disposition home or self-care (01) ==
PROVIDERS: Emergency Medicine; Emergency Provider Emergency Medicine; Family Provider Family Medicine; PCP Family Medicine
DX: J45.901 Unspecified asthma with (acute) exacerbation (principal); J81.1 Chronic pulmonary edema; R05 Cough; Z20.822 Contact with and (suspected) exposure to COVID-19
CPT/HCPCS: 36415; 71046; 80053; 82550; 83605; 83880; 84484; 85025; 87633; 93005; 93010; 94150; 94640; 96361; 96374; 96375; 99284; J1940; J2930; J3475; J7613

== ENCOUNTER 2020-10-31 20:36 | Emergency (ER) | payer OTHER, MEDICAID, SELFPAY ==
[2020-10-31] VITALS (9 sets, daily range): BP systolic 110–138; BP diastolic 58–75; PULSE 95–111; RESP 16–23; TEMP 36.4; O2SAT 93–97; BMI 39.6
--- NOTE | 2020-10-31 20:50 | ED_ITS ---
HPI - Arrhythmia/Palpitations General Chief Complaint: Arrhythmia/Palpitations Stated Complaint: sent by MD for rapid heartrate Time Seen by Provider: 10/31/20 20:50 Source: patient Mode of arrival: Ambulatory Limitations: no limitations History of Present Illness HPI narrative: 25-year-old female nonsmoker with history of asthma and a relatively complicated medical history recently including frequent vomiting dur ing which resulted in a perforated esophagus and prolonged intubation. She had been discharged and doing relatively well in the aftermath except for an asthma exacerbation a few days ago. Unfortunately she learned that she was carrying a nonviable but has elected to carry it to term for personal reasons. She has had episodes of HR jumping to the 140s particularly with exertion and was sent here by her PCP. She denies fever or chills. She denies N/V. She denies any medication or dietary change. Related Data Home Medications Medication Instructions Recorded Confirmed inositol 2,000 mg-D chiro inositol ea PO 07/03/20 10/30/20 50 mg oral powder packet metformin 500 mg tablet See Rx Instructions .ROUTE 10/30/20 .COMPLEX tab sertraline 50 mg tablet 75 mg PO DAILY tab 10/30/20 Previous Rx's Medication Instructions Recorded blood sugar diagnostic #50 each 10/18/18 Glucose: Home Monitor #1 ea 08/17/19 blood sugar test strips #100 each 08/17/19 lancets #100 each 08/17/19 vitamins no.119-iron 1 tab PO DAILY #100 tab 04/15/20 fumarate 29 mg-folic acid 1 mg tablet albuterol sulfate 90 mcg/actuation 2 puff INHALATION .q4-6 hours PRN 08/13/20 aerosol inhaler #8.5 gram pantoprazole 20 mg tablet,delayed 20 mg PO DAILY #30 tab 08/25/20 release ondansetron 4 mg PO Q6H PRN #14 tab 09/16/20 hydroxyzine pamoate 50 mg capsule 50 mg PO QID PRN #30 cap 09/26/20 docusate sodium 250 mg capsule 250 mg PO DAILY #30 cap 10/02/20 hydrocortisone 2.5 % topical cream 1 applic MS BID-QID PRN #30 g 10/02/20 with perineal applicator furosemide [Lasix] 20 mg PO DAILY 7 Days #7 tab 10/27/20 fluticasone propionate 110 1 puff INHALATION BID #12 g 10/30/20 mcg/actuation HFA aerosol inhaler ipratropium 0.5 mg-albuterol 3 mg 3 ml INHALATION Q6-8H PRN #90 ml 10/30/20 (2.5 mg base)/3 mL nebulization soln nebulizer and all supplies #1 ea 10/30/20 Allergies Allergy/AdvReac Type Severity Reaction Status Date / Time No Known Drug Allergies Allergy Verified 10/30/20 16:10 Review of Systems Constitutional Constitutional: Denies chills, Denies fatigue, Denies fever(s), Denies frequent falls, Denies lethargy and Denies weakness Eyes Eyes: Denies change in vision, Denies eye discharge, Denies irritation and Denies loss of vision ENT Ears, Nose, Mouth, and Throat: Denies change in voice, Denies dizziness, Denies neck pain, Denies sore throat and Denies throat swelling Cardiovascular Cardiovascular: Denies chest pain, Reports rapid heart rate, Denies irregular heart rhythm, Denies lightheadedness, Denies dyspnea, Denies dyspnea on exertion and Denies orthopnea Respiratory Respiratory: Denies cough, Denies dyspnea, Denies dyspnea on exertion and Denies wheezing Gastrointestinal Gastrointestinal: Denies abdominal pain, Denies change in bowel habits, Denies diarrhea, Denies nausea and Denies vomiting Musculoskeletal Musculoskeletal: Denies neck pain and Denies numbness Integumentary/Breasts Skin/Breast: Denies pruritus, Denies erythema, Denies rash and Denies wounds Neurologic Neurologic: Denies behavioral changes, Denies confusion, Denies dizziness, Denies frequent falls, Denies loss of vision, Denies numbness and Denies weakness Psychiatric Psychiatric: Denies anxiety, Denies behavioral changes, Denies confusion, Denies depression, Denies homicidal ideation and Denies suicidal ideation Endocrine Endocrine: Denies fatigue and Denies flushing Hematologic/Lymphatic Hematologic/Lymphatic: Denies easy bruising Allergic/Immunologic Allergic/Immunologic: Denies urticaria, Denies throat swelling and Denies wheezing Patient History Medical History Acute bronchitis (~03/2020) Acute pain of right shoulder (08/29/17) Asthma (~2000) Cervical paraspinal muscle spasm (~2016) Dysmenorrhea (~2006) Frequent loose stools (~1993) Gastritis (~2018) Hemorrhoids (~2014) Laryngitis, chronic PCOS (polycystic ovarian syndrome) (~2001) Respiratory infection Shoulder pain, right Skin lesion of right arm (~2013) Surgical History History of third molar tooth extraction History of tonsillectomy and adenoidectomy Status post tonsillectomy and adenoidectomy Family History Mother Hyperlipidemia Diabetes mellitus Father No problems noted. Grandmother Heart disease Emphysema lung Smoker Grandfather Family estrangement Grandmother No problems noted. Grandfather No problems noted. Social History household members: significant other and children Smoking Status: Never smoker alcohol intake: current Smoking Status: Never smoker alcohol intake frequency: holidays/special occasions only Substance Use Type: marijuana Exam Narrative Exam Narrative: GENERAL: [25] year old patient appears stated age. Well- developed patient, in mild distress. HEAD: Atraumatic. Normocephalic. EYES: Pupils equal round and reactive. Extraocular motions intact. No scleral icterus. No injection or drainage. ENT: Nose without bleeding, purulent drainage. Throat without erythema, to nsillar hypertrophy or exudate. Airway patent. NECK: Trachea midline. Non tender CARDIOVASCULAR: Regular rate and rhythm without murmurs, gallops, or rubs. RESPIRATORY: Clear to auscultation. Breath sounds equal bilaterally. No wheezes, rales, or rhonchi. GASTROINTESTINAL: Abdomen soft, gravid and above umbilicus, nondistended. EXTREMITIES: No edema or joint tenderness. BACK: Nontender without deformity or crepitance. No flank tenderness. NEURO: AOx3. SKIN: No rash or erythema of visible areas Initial Vital Signs Initial Vital Signs: Vital Signs Temperature 97.5 F L 10/31/20 20:44 Pulse Rate 109 H 10/31/20 20:44 Respiratory Rate 16 10/31/20 20:44 Blood Pressure 117/75 10/31/20 20:44 Pulse Oximetry 97 10/31/20 20:44 Course Orders Ordered: ED Orders 10/31/20 20:52 EKG-12 Lead Stat 10/31/20 21:33 XR chest 1V Stat EKG-12 Lead Stat 10/31/20 21:40 Complete Blood Count AUTO DIFF Stat Comprehensive Metabolic Panel Stat Magnesium Stat NT-proBNP (BNP-Adult 18+) Stat Thyroid Stimulating Hormone Stat Troponin & CK Cardiac Panel Stat 10/31/20 22:33 CT angio chest PE protocol Stat Discontinued Medications Sodium Chloride (Normal Saline 0.9%) 1,000 mls @ 150 mls/hr IV CONT CAESAR Last Infusion: 11/01/20 00:19 Dose: 0 mls/hr Documented by: JOSE ARMANDO Admin: 10/31/20 22:59 Dose: 150 mls/hr Documented by: JOSE ARMANDO Vital Signs Vital signs: Vital Signs - 8 hr 10/31/20 20:44 10/31/20 20:55 10/31/20 21:00 Temperature 97.5 F L Pulse Rate 109 H 104 H 102 H Respiratory Rate 16 22 Blood Pressure 117/75 123/58 L Pulse Oximetry 97 96 96 10/31/20 21:30 10/31/20 22:00 10/31/20 22:30 Temperature Pulse Rate 105 H 95 H 100 H Respiratory Rate 23 21 Blood Pressure 118/60 110/72 Pulse Oximetry 96 97 97 10/31/20 22:31 10/31/20 23:00 10/31/20 23:30 Temperature Pulse Rate 111 H 97 H 102 H Respiratory Rate 21 22 20 Blood Pressure 138/75 110/70 115/64 Pulse Oximetry 96 95 93 11/01/20 00:00 11/01/20 00:10 Temperature Pulse Rate 98 H 79 Respiratory Rate 21 22 Blood Pressure 119/81 125/56 L Pulse Oximetry 95 97 MDM - Arrhythmia/Palpitations Lab Data Result diagrams: 10/31/20 21:40 10/31/20 21:40 Labs: Lab Results 10/31/20 10/31/20 10/31/20 Range/Units 21:40 21:40 21:40 WBC 11.8 H (4.5-11.0) X10^3/uL RBC 4.17 (4.0-5.2) X10^6/uL Hgb 13.0 (12.0-16.0) g/dL Hct 38.7 (36-46) % MCV 92.7 (80-100) fL MCH 31.2 (26-34) PG MCHC 33.7 (30-36) % RDW 14.1 (11.6-14.8) % Plt Count 234 (150-400) X10^3/uL Neut % (Auto) 63.6 (50-75) % Lymph % (Auto) 26.1 (25-40) % [place] % (Auto) 6.1 (3-14) % Eos % (Auto) 3.7 (2-4) % Baso % (Auto) 0.5 (0-2) % Neut # (Auto) 7500 H (9334-1166) /uL Lymph # (Auto) 3100 (1054-0670) /uL [place] # (Auto) 700 (0-900) /uL Eos # (Auto) 400 (0-450) /uL Baso # (Auto) 100 (0-100) /uL Sodium 136 L (137-145) mmol/L Potassium 3.3 L (3.4-5.1) mmol/L Chloride 102 (98-107) mmol/L Carbon Dioxide 25 (22-32) mmol/L BUN 11 (7-17) mg/dL Creatinine 0.63 (0.52-1.04) mg/dL Estimated GFR > 60.0 (>60) mL/min BUN/Creatinine Ratio 17.5 (6-22) Glucose 92 (70-100) mg/dL Calcium 9.1 (8.4-10.2) mg/dL Magnesium 1.7 (1.6-2.3) mg/dL Total Bilirubin 0.3 (0.2-1.3) mg/dL AST 18 (14-36) IU/L ALT 8 (<35) IU/L Alkaline Phosphatase 77 (38-126) U/L Total Creatine Kinase < 20 L (30-135) U/L CK-MB (CK-2) TNP CK-MB (CK-2) Rel Index TNP Troponin I < 0.012 (0.01-0.034) ng/mL NT-Pro-B Natriuret Pep 27 (<125) pg/mL Total Protein 6.9 (6.3-8.2) g/dL Albumin 3.5 (3.5-5.0) g/dL Globulin 3.4 (1.7-4.1) g/dL Albumin/Globulin Ratio 1.0 (1.0-2.8) TSH 1.36 (0.47-4.68) uIU/mL Imaging Data CT scan - chest: Radiologist's Impresson: No PE, No acute thoracic pathology MDM Narrative Medical decision making narrative: Multiple etiologies for patient's symptoms considered including: [Pulmonary embolism versus pericardial effusion versus airspace disease versus pneumothorax versus other] Patient's symptoms improved over duration of stay with above-stated therapies. Findings and discharge diagnosis discussed with patient/family followed by verbalization of understanding Return precautions discussed with patient/family whom verbalize understanding. Discharge Plan Departure Patient Disposition: Home Clinical Impression: Tachycardia Instructions: DI for Tachycardia Activity Restrictions/Additional Instructions: *You have been diagnosed with [ tachycardia] *What to do: *Please continue to take your regular medications as directed. [ ] New medication prescriptions sent to your pharmacy: [ ] [ ] New medication written as a paper prescription [x ] No new medications given *Please follow up with your primary care provider in 2-3 days, call for an appointment. Let them know you were seen in the Emergency Department and that we ask that you be seen in follow up. We will electronically transmit a record of today's note if your PCP is in our system *If you do not have a primary care provider please contact the [facility] Resource line at [phone]. They will ask some questions about your medical history and help get you set up with a doctor in the community. *Return to Emergency Department if you should have any new, worsening or concerning symptoms, such as [fever greater than 101 F, shaking chills, worsening pain, persistent vomiting or other bothersome symptoms] Prescriptions: No Action (DME) OneTouch Ultra Blue Test Strip strip See Dose Instructions .ROUTE .MEDSUPPLY Qty: 50 RF: 11 (DME) Glucose: Home Monitor 0 .Route .MEDSUPPLY Qty: 1 RF: 0 (DME) blood sugar test strips Qty: 100 RF: 6 (DME) lancets Qty: 100 RF: 6 albuterol sulfate [ProAir HFA] 90 mcg/actuation HFA aerosol inhaler 2 puff INHALATION .q4-6 hours PRN (Reason: shortness of breath or wheezing) Qty: 8.5 RF: 3 hydroxyzine pamoate 50 mg capsule 50 mg PO QID PRN (Reason: anxiety) Qty: 30 RF: 1 PNV 119-iron fum-folic acid 29 mg iron- 1 mg tablet 1 tab PO DAILY Qty: 100 RF: 3 inositol-D chiro inositol 2,000-50 mg powder in packet PO RF: 0 pantoprazole [Protonix] 20 mg tablet,delayed release (DR/EC) 20 mg PO DAILY Qty: 30 RF: 3 hydrocortisone [Anusol-HC] 2.5 % cream with perineal applicator 1 applic MS BID-QID PRN (Reason: hemorrhoids) Qty: 30 RF: 2 docusate sodium 250 mg capsule 250 mg PO DAILY Qty: 30 RF: 3 metformin 500 mg tablet See Rx Instructions .ROUTE .COMPLEX RF: 0 sertraline 50 mg tablet 75 mg PO DAILY RF: 0 Flovent HFA 110 mcg/actuation HFA aerosol inhaler 1 puff inhalation BID Qty: 12 RF: 0 (DME) nebulizer and all supplies See Rx Instructions .Route .MEDSUPPLY Qty: 1 RF: 0 ipratropium-albuterol 0.5 mg-3 mg(2.5 mg base)/3 mL solution for nebulization 3 ml inhalation Q6-8H PRN (Reason: shortness of breath or wheezing) Qty: 90 RF: 0 furosemide [Lasix] 20 mg tablet 20 mg PO DAILY 7 Days Qty: 7 RF: 0 ondansetron 4 mg tablet,disintegrating 4 mg PO Q6H PRN (Reason: nausea and vomiting) Qty: 14 RF: 0 Referrals: Glynn Aguirre DO [Primary Care Provider] -
--- NOTE | 2020-10-31 21:33 | DI.RAD.S_ITS ---
PROCEDURE: XR CHEST 1V INDICATIONS: tachycardia, SOB TECHNIQUE: One view of the chest was acquired. COMPARISON: [facility], CR, XR CHEST 2V, 10/27/2020, 16:53. FINDINGS: Surgical changes and devices: None. Lungs and pleura: Lungs are clear. No pleural effusions or pneumothorax. Mediastinum: Mediastinal contours appear normal. Heart size is normal. Bones and chest wall: No suspicious bony lesions. Overlying soft tissues appear unremarkable. IMPRESSION: No evidence acute pulmonary process. Comment: Final report is concordant with preliminary interpretation provided by [facility]. Dictated by: Elton Godoy M.D. on 11/01/2020 at 6:45 Approved by: Elton Godoy M.D. on 11/01/2020 at 6:45
[2020-10-31 21:51] LABS: Add Manual Diff / Slide Review NO; Basophils Absolute Auto 100 /uL (0-100); Basophils Percent Auto 0.5 % (0-2); Eosinophils Absolute Auto 400 /uL (0-450); Eosinophils Percent Auto 3.7 % (2-4); Hematocrit 38.7 % (36-46); Lymphocytes Absolute Auto 3100 /uL (1100-4500); Lymphocytes Percent Auto 26.1 % (25-40); Mean Corpuscular HGB Conc 33.7 % (30-36); Mean Corpuscular Hemoglobin 31.2 PG (26-34); Mean Corpuscular Volume 92.7 fL (80-100); Monocytes Absolute Auto 700 /uL (0-900); Monocytes Percent Auto 6.1 % (3-14); Neutrophils Absolute Auto 7500 /uL (1500-7000); Neutrophils Percent Auto 63.6 % (50-75); Platelet Count 234 X10^3/uL (150-400); Red Blood Cell Count 4.17 X10^6/uL (4.0-5.2); Red Cell Distribution Width 14.1 % (11.6-14.8); White Blood Cell Count 11.8 X10^3/uL (4.5-11.0)
[2020-10-31 21:59] LABS: Alanine Aminotransferase 8 IU/L (<35); Albumin 3.5 g/dL (3.5-5.0); Alkaline Phosphatase 77 U/L (38-126); Aspartate Aminotransferase 18 IU/L (14-36); BUN Creatinine Ratio 17.5 (6-22); Bilirubin Total 0.3 mg/dL (0.2-1.3); Blood Urea Nitrogen 11 mg/dL (7-17); Calcium 9.1 mg/dL (8.4-10.2); Carbon Dioxide 25 mmol/L (22-32); Chloride 102 mmol/L (98-107); Creatine Kinase < 20 U/L (30-135); Estimated Glomerular Filt Rate > 60.0 mL/min (>60); Globulin 3.4 g/dL (1.7-4.1); Glucose 92 mg/dL (70-100); HEMOLYSIS 16 (0-50); Magnesium 1.7 mg/dL (1.6-2.3); Potassium 3.3 mmol/L (3.4-5.1); Sodium 136 mmol/L (137-145); Total Protein 6.9 g/dL (6.3-8.2)
[2020-10-31 22:11] LABS: NT-proBNP (BNP-Adult 18+) 27 pg/mL (<125); Troponin I < 0.012 ng/mL (0.01-0.034)
--- NOTE | 2020-10-31 22:33 | DI.CT.S_ITS ---
PROCEDURE: CT ANGIO CHEST PE PROTOCOL INDICATIONS: short of breath, fatigue, tachycardia, recent esophageal per TECHNIQUE: After the administration of intravenous contrast, 2 mm thick sections acquired from the pulmonary apices to the posterior costophrenic angles. 3-dimensional maximum intensity projection (MIP) coronal and sagittal reformats were then acquired through the thorax. For radiation dose reduction, the following was used: automated exposure control, adjustment of mA and/or kV according to patient size. COMPARISON: [facility], CT, CT ANGIO CHEST PE PROTOCOL, 09/16/2020, 23:36. FINDINGS: Image quality: Excellent. Pulmonary arteries: Pulmonary arteries are normal in size, and demonstrate no intraluminal filling defects to suggest central pulmonary embolism. Lungs and pleura: Lungs are clear. No pleural effusions or pneumothorax. Central and peripheral airways are patent. Mediastinum: Heart size is normal, without pericardial effusion. No mediastinal or hilar adenopathy. Thoracic aorta is normal in caliber and enhancement. Esophagus is normal in caliber, without hiatal hernia. Bones and chest wall: No suspicious bony lesions. Ribs and thoracic spine appear intact throughout. Thyroid gland is unremarkable. No axillary or supraclavicular adenopathy. Abdomen: Visualized upper abdominal solid organs appear normal in the early arterial phase of enhancement. IMPRESSION: 1. No evidence acute pulmonary emboli. 2. No evidence acute pulmonary process. Comment: Final report is concordant with preliminary interpretation provided by [facility]. Dictated by: Elton Godoy M.D. on 11/01/2020 at 6:45 Approved by: Elton Godoy M.D. on 11/01/2020 at 6:47
[2020-10-31 22:35] LABS: Thyroid Stimulating Hormone 1.36 uIU/mL (0.47-4.68)
[2020-10-31] MEDS: SODIUM CHLORIDE 0.9% 1,000 ML 150 ML IV (22:59)
[2020-11-01] VITALS: BP 119/81; PULSE 98; RESP 21; O2SAT 95
[2020-11-01 00:10] VITALS: BP 125/56; PULSE 79; RESP 22; O2SAT 97
--- NOTE | 2020-11-01 00:17 | PC.NURSE ---
Pt did well with ambulation trial. Pt satted above 96% the whole time with HR 89-114
== END 2020-11-01 00:26 | disposition home or self-care (01) ==
PROVIDERS: Emergency Provider Emergency Medicine; Family Provider Family Medicine; PCP Family Medicine; Referring Provider Nurse Practitioner Family
DX: R00.0 Tachycardia, unspecified (principal)
CPT/HCPCS: 36415; 71045; 71275; 80053; 82550; 83735; 83880; 84443; 84484; 85025; 93005; 93010; 96360; 99284; Q9967

== ENCOUNTER → 2020-11-18 16:56 | Outpatient (CLI) | payer OTHER, MEDICAID, SELFPAY ==
[2020-11-18 18:52] LABS: Hematocrit 35.2 % (36-46); Hemoglobin 11.9 g/dL (12.0-16.0)
[2020-11-18 19:07] LABS: GTT (PREG) 1 Hour PP 50gm Dose 91 mg/dL (76-139)
== END ==
PROVIDERS: Family Provider Family Medicine; PCP Family Medicine; Referring Provider Obstetrics & Gynecology; Visit Provider Obstetrics & Gynecology
DX: Z34.82 Encounter for supervision of other normal pregnancy, second trimester (principal); Z3A.25 25 weeks gestation of pregnancy
CPT/HCPCS: 36415; 82950; 85014; 85018

== ENCOUNTER 2020-11-25 10:25 | Emergency (ER) | payer OTHER, MEDICAID, SELFPAY ==
[2020-11-25] VITALS (14 sets, daily range): BP systolic 117–132; BP diastolic 60–76; PULSE 59–85; RESP 14–20; TEMP 36; O2SAT 93–100; BMI 42.3
--- NOTE | 2020-11-25 10:53 | ED.NAVMDI ---
HPI - Nausea/Vomiting/Diarrhea General Chief complaint: Nausea/Vomiting/Diarrhea Stated complaint: suspects gastritis Time Seen by Provider: 11/25/20 10:53 Source: patient Mode of arrival: Ambulatory Limitations: no limitations History of Present Illness HPI Narrative: This is a 25-year-old female comes emergency department with complaint of abdominal pain. Patient states in the epigastric region ago somewhat in her chest but also into her abdomen. She states she has had nausea and vomiting starting about 2:00 a.m. this morning did have a small amount of him at home as this. Patient denies any fevers. No chills. She feels mildly short of breath. She does not endorse any cough, cold or congestion. Patient has had bowel movements. She has not had diarrhea or black or bloody stools. She denies any new urinary symptoms but does sometimes have frequency. She has not had any vaginal bleeding or fluid leakage. Patient had a medical history significant for current with fetus with known polycystic kidney disease who is not anticipated to survive. Patient also had esophageal tear secondary to emesis and was ultimately intubated and transferred to a larger facility from our facility in September of 2020. Patient does have a known history of asthma as well as diabetes and is on metformin, sertraline, pantoprazole which she states she ran out of several days ago as well as Zofran which she is out of as well. Patient states that her care has since been transferred back to Dr. Canseco one of our local OB GYNs from [facility]. Related Data Home Medications Medication Instructions Recorded Confirmed inositol 2,000 mg-D chiro inositol ea PO 07/03/20 11/10/20 50 mg oral powder packet metformin 500 mg tablet See Rx Instructions .ROUTE 10/30/20 11/10/20 .COMPLEX tab sertraline 50 mg tablet 75 mg PO DAILY tab 10/30/20 11/10/20 Previous Rx's Medication Instructions Recorded blood sugar diagnostic (OneTouch #50 each 10/18/18 Ultra Blue Test Strip) Glucose: Home Monitor #1 ea 08/17/19 blood sugar test strips #100 each 08/17/19 lancets #100 each 08/17/19 vitamins no.119-iron 1 tab PO DAILY #100 tab 04/15/20 fumarate 29 mg-folic acid 1 mg tablet albuterol sulfate 90 mcg/actuation 2 puff INHALATION .q4-6 hours PRN 08/13/20 aerosol inhaler (ProAir HFA) #8.5 gram hydroxyzine pamoate 50 mg capsule 50 mg PO QID PRN #30 cap 09/26/20 docusate sodium 250 mg capsule 250 mg PO DAILY #30 cap 10/02/20 hydrocortisone 2.5 % topical cream 1 applic [place] BID-QID PRN #30 g 10/02/20 with perineal applicator (Anusol-HC) fluticasone propionate 110 1 puff INHALATION BID #12 g 10/30/20 mcg/actuation HFA aerosol inhaler (Flovent HFA) ipratropium 0.5 mg-albuterol 3 mg 3 ml INHALATION Q6-8H PRN #90 ml 11/13/20 (2.5 mg base)/3 mL nebulization soln nebulizer and all supplies #1 ea 11/13/20 pantoprazole 20 mg tablet,delayed 40 mg PO DAILY #30 tab 11/24/20 release (Protonix) ondansetron 4 mg disintegrating 4 mg PO Q6H PRN #14 tab 11/25/20 tablet Allergies Allergy/AdvReac Type Severity Reaction Status Date / Time No Known Drug Allergies Allergy Verified 11/05/20 13:37 Review of Systems Review of Systems ROS Unobtainable: All systems reviewed & are unremarkable except as noted in HPI and below Patient History Medical History Acute bronchitis (~03/2020) Acute pain of right shoulder (08/29/17) Asthma (~2000) Cervical paraspinal muscle spasm (~2016) Dysmenorrhea (~2006) Frequent loose stools (~1993) Gastritis (~2018) Hemorrhoids (~2014) Laryngitis, chronic PCOS (polycystic ovarian syndrome) (~2001) Respiratory infection Shoulder pain, right Skin lesion of right arm (~2013) Surgical History History of third molar tooth extraction History of tonsillectomy and adenoidectomy Status post tonsillectomy and adenoidectomy Family History Mother Hyperlipidemia Diabetes mellitus Father No problems noted. Grandmother Heart disease Emphysema lung Smoker Grandfather Family estrangement Grandmother No problems noted. Grandfather No problems noted. Social History household members: significant other and children Smoking Status: Never smoker alcohol intake: current Smoking Status: Never smoker alcohol intake frequency: holidays/special occasions only Substance Use Type: marijuana Exam Narrative Exam Narrative: GENERAL: Alert and oriented x three, female in mild distress. HEENT: Head normocephalic, atraumatic, EOMI, pupils reactive, face symmetric, moist mucous membranes NECK: Supple, full range of motion CARDIOVASCULAR: Regular rate and rhythm without murmurs, rubs or gallops. RESPIRATORY: Breath sounds equal bilaterally, no wheezes rales or rhonchi. Patient is mildly tachypneic on exam. No accessory muscle use. ABDOMEN: Soft, nontender. Normoactive bowel sounds all 4 quadrants. No guarding or rebound, rigidity, no mass. Gravid. : No CVA tenderness EXTREMITIES: Normal range of motion, no clubbing or edema. Neurovascularly intact. CT for are is 2/4 bilateral lower extremities NEUROLOGICAL: Cranial nerves II through XII grossly intact. Moving all extremities SKIN: Warm, dry, no petechiae, no rashes or lesions. Initial Vital Signs Initial Vital Signs: Vital Signs Temperature 96.8 F L 11/25/20 10:36 Pulse Rate 72 11/25/20 10:36 Respiratory Rate 20 11/25/20 10:36 Blood Pressure 128/76 11/25/20 10:36 Pulse Oximetry 100 11/25/20 10:36 Course Orders Ordered: ED Orders 11/25/20 12:23 XR acute abdomen series Stat 11/25/20 13:06 Blood Culture Stat 11/25/20 13:58 CT abdomen pelvis w con Stat CT angio chest PE protocol Stat Discontinued Medications Sodium Chloride (Normal Saline 0.9%) 1,000 mls @ 1,000 mls/hr IV BOLUS ONE Stop: 11/25/20 13:21 Last Infusion: 11/25/20 14:43 Dose: 0 mls/hr Documented by: JOSE MANUEL Admin: 11/25/20 12:28 Dose: 1,000 mls/hr Documented by: ISIDORO Sodium Chloride (Normal Saline 0.9%) 1,000 mls @ 1,000 mls/hr IV BOLUS ONE Stop: 11/25/20 14:47 Last Infusion: 11/25/20 16:21 Dose: 0 mls/hr Documented by: Admin: 11/25/20 14:08 Dose: 1,000 mls/hr Documented by: JOSE MANUEL Ondansetron HCl (Ondansetron 4 Mg/2 Ml Inj) 4 mg IV NOW ONE Stop: 11/25/20 12:23 Last Admin: 11/25/20 12:29 Dose: 4 mg Documented by: ISIDORO Ondansetron HCl (Ondansetron 4 Mg/2 Ml Inj) 4 mg IV NOW ONE Stop: 11/25/20 14:57 Last Admin: 11/25/20 15:03 Dose: 4 mg Documented by: JOSE MANUEL Pantoprazole Sodium (Pantoprazole 40 Mg Vial) 80 mg IV NOW ONE Stop: 11/25/20 12:23 Last Admin: 11/25/20 12:28 Dose: 80 mg Documented by: ISIDORO Reevaluation(s) Reevaluation #1: Recheck after fluids patient is feeling much better. We discussed her lactate is elevated, will re-evaluate after fluids but because of this I would reimage her today. She has not been tachycardic but did had a significant hospitalization with intubation and is so is high risk for PE, she has also had a esophageal tear from him at from a past so CT of abdomen and pelvis was included as well. Patient is comfortable with this plan. 2 L of fluids. Reevaluation #2: Patient feeling better. She is out of zofran as well as her pantoprazole. This may have been exacerbating her symptoms and she did have anything to treat herself at home. Reviewed her CT labs her lactate is improved. She is feeling much better although she did have some additional nausea and dry heaves and was given additional doses Zofran. Patient feels safe to return home. Discussed Dr. Canseco recommendations. Consultations Consultation #1: Dr. Canseco, patient's pantoprazole was refilled yesterday but patient may not be aware. She has appointment on 12/04/[address] Canseco. Agrees with current. Vital Signs Vital signs: Vital Signs - 8 hr 11/25/20 13:00 11/25/20 13:08 11/25/20 13:36 Pulse Rate 59 L 60 85 Respiratory Rate Blood Pressure 121/60 Pulse Oximetry 97 95 93 11/25/20 13:45 11/25/20 14:00 11/25/20 14:08 Pulse Rate 70 61 72 Respiratory Rate Blood Pressure 118/63 117/62 Pulse Oximetry 98 100 99 11/25/20 15:05 11/25/20 16:19 Pulse Rate 72 Respiratory Rate 14 Blood Pressure 125/65 117/66 Pulse Oximetry 99 MDM - Nausea/Vomiting/Diarrhea Lab Data Result diagrams: 11/25/20 10:56 11/25/20 10:56 Labs: Lab Results 11/25/20 11/25/20 11/25/20 Range/Units 10:56 10:56 10:59 WBC 10.4 (4.5-11.0) X10^3/uL RBC 4.24 (4.0-5.2) X10^6/uL Hgb 13.2 (12.0-16.0) g/dL Hct 38.8 (36-46) % MCV 91.5 (80-100) fL MCH 31.2 (26-34) PG MCHC 34.1 (30-36) % RDW 13.4 (11.6-14.8) % Plt Count 185 (150-400) X10^3/uL Neut % (Auto) 87.6 H (50-75) % Lymph % (Auto) 8.7 L (25-40) % [place] % (Auto) 3.2 (3-14) % Eos % (Auto) 0.3 L (2-4) % Baso % (Auto) 0.2 (0-2) % Neut # (Auto) 9100 H (7426-0517) /uL Lymph # (Auto) 900 L (0462-8551) /uL [place] # (Auto) 300 (0-900) /uL Eos # (Auto) 0 (0-450) /uL Baso # (Auto) 0 (0-100) /uL Sodium 135 L (137-145) mmol/L Potassium 3.6 (3.4-5.1) mmol/L Chloride 104 (98-107) mmol/L Carbon Dioxide 20 L (22-32) mmol/L BUN 7 (7-17) mg/dL Creatinine 0.41 L (0.52-1.04) mg/dL Estimated GFR > 60.0 (>60) mL/min BUN/Creatinine Ratio 17.1 (6-22) Glucose 115 H (70-100) mg/dL Lactate 3.5 H (0.7-2.1) mmol/L Calcium 9.5 (8.4-10.2) mg/dL Total Bilirubin 0.4 (0.2-1.3) mg/dL AST 36 (14-36) IU/L ALT 12 (<35) IU/L Alkaline Phosphatase 91 (38-126) U/L Total Creatine Kinase 29 L (30-135) U/L CK-MB (CK-2) TNP CK-MB (CK-2) Rel Index TNP Troponin I < 0.012 (0.01-0.034) ng/mL Total Protein 7.4 (6.3-8.2) g/dL Albumin 3.7 (3.5-5.0) g/dL Globulin 3.7 (1.7-4.1) g/dL Albumin/Globulin Ratio 1.0 (1.0-2.8) Lipase 106 (23-300) U/L // Range/Units 14:50 WBC (4.5-11.0) X10^3/uL RBC (4.0-5.2) X10^6/uL Hgb (12.0-16.0) g/dL Hct (36-46) % MCV (80-100) fL MCH (26-34) PG MCHC (30-36) % RDW (11.6-14.8) % Plt Count (150-400) X10^3/uL Neut % (Auto) (50-75) % Lymph % (Auto) (25-40) % [place] % (Auto) (3-14) % Eos % (Auto) (2-4) % Baso % (Auto) (0-2) % Neut # (Auto) (9885-2505) /uL Lymph # (Auto) (0416-2512) /uL [place] # (Auto) (0-900) /uL Eos # (Auto) (0-450) /uL Baso # (Auto) (0-100) /uL Sodium (137-145) mmol/L Potassium (3.4-5.1) mmol/L Chloride (98-107) mmol/L Carbon Dioxide (22-32) mmol/L BUN (7-17) mg/dL Creatinine (0.52-1.04) mg/dL Estimated GFR (>60) mL/min BUN/Creatinine Ratio (6-22) Glucose (70-100) mg/dL Lactate 1.5 (0.7-2.1) mmol/L Calcium (8.4-10.2) mg/dL Total Bilirubin (0.2-1.3) mg/dL AST (14-36) IU/L ALT (<35) IU/L Alkaline Phosphatase (38-126) U/L Total Creatine Kinase (30-135) U/L CK-MB (CK-2) CK-MB (CK-2) Rel Index Troponin I (0.01-0.034) ng/mL Total Protein (6.3-8.2) g/dL Albumin (3.5-5.0) g/dL Globulin (1.7-4.1) g/dL Albumin/Globulin Ratio (1.0-2.8) Lipase (23-300) U/L Urine Dip Bedside Urine Glucose Negative Bedside Urine Bilirubin - Negative Bedside Urine Ketone + 15 Urine Specific [place] 1.010 Bedside Urine Occult Blood - Negative Bedside Urine pH 8.0 Bedside Urine Protein - Negative Bedside Urine Urobilinogen - Negative Bedside Urine Nitrite - Negative Bedside Urine Leukocytes - Negative Esterase Imaging Data CT scan - abdomen/pelvis: Radiologist's Impression: [address] [id number] Scan ReportSigned Patient: Nina Liriano [facility]#: [id number]: 1995Acct:[id number]/Sex: 25 / FDate of Service: 11/25/20Loc: EDAccession Number: [id number] Procedure: CT abdomen pelvis w con Ordering Provider: Jessica Figueredo D.O. PROCEDURE: CT ABDOMEN PELVIS W CON INDICATIONS: chest/abd pain TECHNIQUE: After the administration of oral and IV contrast, axial sections were acquired from the lung bases to the pubic symphysis. Coronal and sagittal reformats were performed. For radiation dose reduction, the following was used: automated exposure control, adjustment of mA and/or kV according to patient size. COMPARISON: [facility], CT, CT ABDOMEN PELVIS W CON, 10/03/2018, 11:46. [facility], CT, CT ANGIO CHEST PE PROTOCOL, 11/25/2020, 14:06. [facility], CR, XR ACUTE ABDOMEN SERIES, 11/25/2020, 13:28. [facility], US, US OB >= 14 WEEKS FETUS, 11/05/2020, 13:52. FINDINGS: Image quality: Excellent. Lung bases: Unremarkable. A small hiatal hernia is incidentally noted. Heart: No significant findings. ABDOMEN: Liver: Unremarkable. Gallbladder: Unremarkable. Biliary ducts: Unremarkable. Pancreas: Unremarkable. Spleen: Enlarged, measuring 17 cm AP. Adrenal Glands: Unremarkable. Kidneys and Ureters: Unremarkable. Stomach and Bowel: Stomach, small bowel loops, and colon are unremarkable. Normal appendix. Peritoneum: No abnormal intraperitoneal fluid. No free air. Ventral Wall: No hernia. Abdominal Nodes: No retroperitoneal or mesenteric adenopathy by size criteria. Vessels: Aorta and inferior vena cava are normal in size. PELVIS: Pelvic Organs: There is intrauterine gestation seen. By history, the fetus is known to not be viable. Bladder: Unremarkable. Pelvic Nodes: No enlarged lymph nodes. Miscellaneous: No inguinal hernias are seen. Bones: Mild dextroconvex scoliotic curvature is seen. This patient has transitional lumbar anatomy. For the purposes of this examination, the level with the last pair of ribs is considered to be T12. By this numbering scheme, the L5 level is transitional and is highly sacralized on the left. IMPRESSION: A cause of acute pain is not identified. Normal appendix. Incidental note is made of: Small hiatal hernia Splenomegaly. 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 on 11/25/2020 at 13:42 Approved by: John Montaño M.D. on 11/25/2020 at 13:45 CT scan - chest: Radiologist's Impression: [address] [id number] Scan ReportSigned Patient: Nina Liriano R#: [id number]: 1995Acct:[id number]/Sex: 25 / FDate of Service: 11/25/20Loc: EDAccession Number: [id number] Procedure: CT angio chest PE protocol Ordering Provider: Jessica Figueredo D.O. PROCEDURE: CT ANGIO CHEST PE PROTOCOL INDICATIONS: recent esophageal tear, intubation, today vomiting chest/abd TECHNIQUE: After the administration of intravenous contrast, 2 mm thick sections acquired from the pulmonary apices to the posterior costophrenic angles. 3-dimensional maximum intensity projection (MIP) coronal and sagittal reformats were then acquired through the thorax. For radiation dose reduction, the following was used: automated exposure control, adjustment of mA and/or kV according to patient size. COMPARISON: [facility], CT, CT ANGIO CHEST PE PROTOCOL, 09/16/2020, 23:36. [facility], CT, CT ANGIO CHEST PE PROTOCOL, 10/31/2020, 22:49. [facility], CT, CT ABDOMEN PELVIS W CON, 11/25/2020, 14:06. FINDINGS: Image quality: Excellent. Pulmonary arteries: The bolus of the contrast injection is suboptimal. The main pulmonary artery measures approximately 170 Hounsfield units. Pulmonary artery densities are greater than 250 Hounsfield units are considered to be ideal for evaluation of pulmonary embolism. However, no large or central pulmonary emboli are seen on these images. No pulmonary emboli are seen more distally, although sensitivity for detection of such is limited on this study. Lungs and pleura: Lungs are clear. No pleural effusions or pneumothorax. Central and peripheral airways are patent. Mediastinum: Heart size is normal, without pericardial effusion. There is a small amount residual thymus tissue seen, which is not regarded to be pathologic in a patient of this age. No mediastinal or hilar adenopathy. Thoracic aorta is normal in caliber and enhancement. Esophagus is normal in caliber. There is a small hiatal hernia. Bones and chest wall: No suspicious bony lesions. Ribs and thoracic spine appear intact throughout. Thyroid gland demonstrates no significant abnormality. No axillary or supraclavicular adenopathy. Abdomen: Visualized upper abdominal solid organs appear normal in the early arterial phase of enhancement. IMPRESSION: No large or central pulmonary embolism is seen. Incidental note is made of: Small hiatal hernia Dictated by: John Montaño M.D. on 11/25/2020 at 13:38 Approved by: John Montaño M.D. on 11/25/2020 at 13:41 MDM Narrative Medical decision making narrative: This is a 25-year-old female who comes to the emergency department with persistent vomiting since 2:00 a.m. this morning, patient had a significant medical event in September after having vomiting and developing an esophageal tear she was ultimately intubated and transferred to a larger facility. Patient is also with fetus with polycystic kidney disease which is not expected to survive. Patient is continuing to carry to term at this time. She was following with [facility] but is now having her care transferred back to her local OBGYN. Patient's vital signs here have been reassuring. She did appear to feel somewhat unwell, fluids and Zofran made a significant difference. Her lactate was quite elevated although her other labs were reassuring and patient's lactate was repeated after fluids with improvement. Because of her elevated lactate and high risk for multiple issues with her recent medical events and current medical state patient had CT angio to evaluate for PE as well as abdomen pelvis to evaluate for other intra-abdominal processes, signs of other esophageal tears or other changes. These did not show any acute changes. After discussion patient feels much better she had run out of her pantoprazole as well as her Zofran and these have both been her field. Patient feels comfortable to return home and has follow-up with Dr. Canseco on the . Discharge Plan Departure Patient Disposition: Home Clinical Impression: Vomiting affecting Activity Restrictions/Additional Instructions: Follow up with Dr. Canseco, you do have an appointment scheduled for 12/04/2020. Your pantoprazole has been refilled as of yesterday and should be ready for pickup. You may continue Zofran 1 tablet every 6 hours as needed. Prescription to [facility] in [place]. Your labs today initially showed an elevated lactate at 3.5 this is improved over time and with fluids. Your other labs were reassuring in her vitals here today have been reassuring. Your CT of her chest does not show any blood clots or other major changes to the blood vessels or lungs, there does not appear to be any signs of recurrent tear. Your CT of her abdomen pelvis also does not show any acute changes today. Please return for fevers, worsening symptoms, lightheadedness or passing out, chest pain or shortness of breath, persistent vomiting, vomiting blood, black or bloody stools or other new or concerning changes. Prescriptions: Continued ondansetron 4 mg tablet,disintegrating 4 mg PO Q6H PRN (Reason: nausea and vomiting) Qty: 14 RF: 0 No Action (DME) OneTouch Ultra Blue Test Strip strip See Dose Instructions .ROUTE .MEDSUPPLY Qty: 50 RF: 11 (DME) Glucose: Home Monitor 0 .Route .MEDSUPPLY Qty: 1 RF: 0 (DME) blood sugar test strips Qty: 100 RF: 6 (DME) lancets Qty: 100 RF: 6 albuterol sulfate [ProAir HFA] 90 mcg/actuation HFA aerosol inhaler 2 puff INHALATION .q4-6 hours PRN (Reason: shortness of breath or wheezing) Qty: 8.5 RF: 3 hydroxyzine pamoate 50 mg capsule 50 mg PO QID PRN (Reason: anxiety) Qty: 30 RF: 1 ipratropium-albuterol 0.5 mg-3 mg(2.5 mg base)/3 mL solution for nebulization 3 ml inhalation Q6-8H PRN (Reason: shortness of breath or wheezing) Qty: 90 RF: 0 (DME) nebulizer and all supplies See Rx Instructions .Route .MEDSUPPLY Qty: 1 RF: 0 pantoprazole [Protonix] 20 mg tablet,delayed release (DR/EC) 40 mg PO DAILY Qty: 30 RF: 3 PNV 119-iron fum-folic acid 29 mg iron- 1 mg tablet 1 tab PO DAILY Qty: 100 RF: 3 inositol-D chiro inositol 2,000-50 mg powder in packet PO RF: 0 hydrocortisone [Anusol-HC] 2.5 % cream with perineal applicator 1 applic OK BID-QID PRN (Reason: hemorrhoids) Qty: 30 RF: 2 docusate sodium 250 mg capsule 250 mg PO DAILY Qty: 30 RF: 3 metformin 500 mg tablet See Rx Instructions .ROUTE .COMPLEX RF: 0 sertraline 50 mg tablet 75 mg PO DAILY RF: 0 Flovent HFA 110 mcg/actuation HFA aerosol inhaler 1 puff inhalation BID Qty: 12 RF: 0 Referrals: Hazel Canseco MD [Physician] - Glynn Aguirre DO [Primary Care Provider] -
[2020-11-25 11:29] LABS: Add Manual Diff / Slide Review NO; Basophils Absolute Auto 0 /uL (0-100); Basophils Percent Auto 0.2 % (0-2); Eosinophils Absolute Auto 0 /uL (0-450); Eosinophils Percent Auto 0.3 % (2-4); Hematocrit 38.8 % (36-46); Hemoglobin 13.2 g/dL (12.0-16.0); Lymphocytes Absolute Auto 900 /uL (1100-4500); Lymphocytes Percent Auto 8.7 % (25-40); Mean Corpuscular HGB Conc 34.1 % (30-36); Mean Corpuscular Hemoglobin 31.2 PG (26-34); Mean Corpuscular Volume 91.5 fL (80-100); Monocytes Absolute Auto 300 /uL (0-900); Monocytes Percent Auto 3.2 % (3-14); Neutrophils Absolute Auto 9100 /uL (1500-7000); Neutrophils Percent Auto 87.6 % (50-75); Platelet Count 185 X10^3/uL (150-400); Red Blood Cell Count 4.24 X10^6/uL (4.0-5.2); Red Cell Distribution Width 13.4 % (11.6-14.8); White Blood Cell Count 10.4 X10^3/uL (4.5-11.0)
[2020-11-25 11:33] LABS: Alanine Aminotransferase 12 IU/L (<35); Albumin 3.7 g/dL (3.5-5.0); Alkaline Phosphatase 91 U/L (38-126); Aspartate Aminotransferase 36 IU/L (14-36); BUN Creatinine Ratio 17.1 (6-22); Bilirubin Total 0.4 mg/dL (0.2-1.3); Blood Urea Nitrogen 7 mg/dL (7-17); Calcium 9.5 mg/dL (8.4-10.2); Carbon Dioxide 20 mmol/L (22-32); Chloride 104 mmol/L (98-107); Creatine Kinase 29 U/L (30-135); Estimated Glomerular Filt Rate > 60.0 mL/min (>60); Globulin 3.7 g/dL (1.7-4.1); Glucose 115 mg/dL (70-100); HEMOLYSIS 31 (0-50); Lipase 106 U/L (23-300); Potassium 3.6 mmol/L (3.4-5.1); Sodium 135 mmol/L (137-145); Total Protein 7.4 g/dL (6.3-8.2)
[2020-11-25 11:44] LABS: Troponin I < 0.012 ng/mL (0.01-0.034)
--- NOTE | 2020-11-25 12:23 | DI.RAD.S_ITS ---
PROCEDURE: XR ACUTE ABDOMEN SERIES INDICATIONS: n/v/d, had prior esophageal tear, + preg but demise. TECHNIQUE: One view chest and two views of the abdomen were acquired. COMPARISON: [facility], , OB >= 14 WEEKS FETUS, 11/05/2020, 13:52. FINDINGS: Surgical changes and devices: None. Chest: Lungs are clear. Heart size is normal. No pleural effusions. No pneumoperitoneum. Abdomen: Bowel gas pattern is normal. No suspicious calcifications. Visualized solid organ contours appear normal. There is a fetus seen in transverse presentation. Bones: No suspicious bony lesions. IMPRESSION: A nonobstructive bowel gas pattern is seen. No intraperitoneal gas is seen. Fetus seen in transverse presentation, yet a history of demise is given. Dictated by: John Montaño M.D. on 11/25/2020 at 13:09 Approved by: John Montaño M.D. on 11/25/2020 at 13:10
[2020-11-25] MEDS: PANTOPRAZOLE 40 MG VIAL 80 MG IV (12:28)
[2020-11-25] MEDS: SODIUM CHLORIDE 0.9% 1,000 ML 1000 ML IV ×2 (12:28→14:08)
[2020-11-25] MEDS: ONDANSETRON 4 MG/2 ML INJ IV ×2 (12:29→15:03)
[2020-11-25 12:50] LABS: Lactate (Lactic Acid) 3.5 mmol/L (0.7-2.1)
--- NOTE | 2020-11-25 13:58 | DI.CT.S_ITS ---
PROCEDURE: CT ANGIO CHEST PE PROTOCOL INDICATIONS: recent esophageal tear, intubation, today vomiting chest/abd TECHNIQUE: After the administration of intravenous contrast, 2 mm thick sections acquired from the pulmonary apices to the posterior costophrenic angles. 3-dimensional maximum intensity projection (MIP) coronal and sagittal reformats were then acquired through the thorax. For radiation dose reduction, the following was used: automated exposure control, adjustment of mA and/or kV according to patient size. COMPARISON: [facility], CT, CT ANGIO CHEST PE PROTOCOL, 09/16/2020, 23:36. [facility], CT, CT ANGIO CHEST PE PROTOCOL, 10/31/2020, 22:49. [facility], CT, CT ABDOMEN PELVIS W CON, 11/25/2020, 14:06. FINDINGS: Image quality: Excellent. Pulmonary arteries: The bolus of the contrast injection is suboptimal. The main pulmonary artery measures approximately 170 Hounsfield units. Pulmonary artery densities are greater than 250 Hounsfield units are considered to be ideal for evaluation of pulmonary embolism. However, no large or central pulmonary emboli are seen on these images. No pulmonary emboli are seen more distally, although sensitivity for detection of such is limited on this study. Lungs and pleura: Lungs are clear. No pleural effusions or pneumothorax. Central and peripheral airways are patent. Mediastinum: Heart size is normal, without pericardial effusion. There is a small amount residual thymus tissue seen, which is not regarded to be pathologic in a patient of this age. No mediastinal or hilar adenopathy. Thoracic aorta is normal in caliber and enhancement. Esophagus is normal in caliber. There is a small hiatal hernia. Bones and chest wall: No suspicious bony lesions. Ribs and thoracic spine appear intact throughout. Thyroid gland demonstrates no significant abnormality. No axillary or supraclavicular adenopathy. Abdomen: Visualized upper abdominal solid organs appear normal in the early arterial phase of enhancement. IMPRESSION: No large or central pulmonary embolism is seen. Incidental note is made of: Small hiatal hernia Dictated by: John Montaño M.D. on 11/25/2020 at 13:38 Approved by: John Montaño M.D. on 11/25/2020 at 13:41
--- NOTE | 2020-11-25 13:58 | DI.CT.S_ITS ---
PROCEDURE: CT ABDOMEN PELVIS W CON INDICATIONS: chest/abd pain TECHNIQUE: After the administration of oral and IV contrast, axial sections were acquired from the lung bases to the pubic symphysis. Coronal and sagittal reformats were performed. For radiation dose reduction, the following was used: automated exposure control, adjustment of mA and/or kV according to patient size. COMPARISON: , CT, CT ABDOMEN PELVIS W CON, 10/03/2018, 11:46. , CT, CT ANGIO CHEST PE PROTOCOL, 11/25/2020, 14:06. , CR, XR ACUTE ABDOMEN SERIES, 11/25/2020, 13:28. [facility], US, US OB >= 14 WEEKS FETUS, 11/05/2020, 13:52. FINDINGS: Image quality: Excellent. Lung bases: Unremarkable. A small hiatal hernia is incidentally noted. Heart: No significant findings. ABDOMEN: Liver: Unremarkable. Gallbladder: Unremarkable. Biliary ducts: Unremarkable. Pancreas: Unremarkable. Spleen: Enlarged, measuring 17 cm AP. Adrenal Glands: Unremarkable. Kidneys and Ureters: Unremarkable. Stomach and Bowel: Stomach, small bowel loops, and colon are unremarkable. Normal appendix. Peritoneum: No abnormal intraperitoneal fluid. No free air. Ventral Wall: No hernia. Abdominal Nodes: No retroperitoneal or mesenteric adenopathy by size criteria. Vessels: Aorta and inferior vena cava are normal in size. PELVIS: Pelvic Organs: There is intrauterine gestation seen. By history, the fetus is known to not be viable. Bladder: Unremarkable. Pelvic Nodes: No enlarged lymph nodes. Miscellaneous: No inguinal hernias are seen. Bones: Mild dextroconvex scoliotic curvature is seen. This patient has transitional lumbar anatomy. For the purposes of this examination, the level with the last pair of ribs is considered to be T12. By this numbering scheme, the L5 level is transitional and is highly sacralized on the left. IMPRESSION: A cause of acute pain is not identified. Normal appendix. Incidental note is made of: Small hiatal hernia Splenomegaly. 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 on 11/25/2020 at 13:42 Approved by: John Montaño M.D. on 11/25/2020 at 13:45
[2020-11-25 14:33] LABS: Reflexed Lactate in 2 Hours Y
[2020-11-25 15:14] LABS: Lactate 2HR (Lactic Acid Rflx) 1.5 mmol/L (0.7-2.1)
== END 2020-11-25 16:32 | disposition home or self-care (01) ==
PROVIDERS: Emergency Provider Emergency Medicine; Family Provider Family Medicine; PCP Family Medicine
DX: O35.8XX0 Maternal care for other (suspected) fetal abnormality and damage, not applicable or unspecified (principal); R11.2 Nausea with vomiting, unspecified; R06.02 Shortness of breath; R07.9 Chest pain, unspecified
CPT/HCPCS: 36415; 71275; 74022; 74177; 80053; 81003; 82550; 83605; 83690; 84484; 85025; 87040; 93005; 93010; 96361; 96374; 96375; 96376; 99284; C9113; J2405

== ENCOUNTER 2021-10-28 09:06 | Emergency (ER) | payer OTHER, MEDICAID, SELFPAY ==
[2021-10-28] VITALS (11 sets, daily range): BP systolic 126–166; BP diastolic 63–100; PULSE 55–67; RESP 16; TEMP 36.2; O2SAT 92–100; BMI 43.0
--- NOTE | 2021-10-28 09:12 | ED_ITS ---
HPI - Nausea/Vomiting/Diarrhea General Chief complaint: Abdominal Pain Stated complaint: Vomiting Time Seen by Provider: 10/28/21 09:10 History of Present Illness HPI Narrative: 26F nonsmoker with history of gastritis, anxiety, depression, prior prolonged hospitalization due to an acquired pneumomediastinum from persistent vomiting with transfer to [facility] presents with a chief complaint epigastric discomfort that started relatively suddenly last night. She is having persistent nausea and vomiting and epigastric pain without obvious provocation, palliation or radiation. She has had no fever chills. She denies any chest pain or trouble breathing. She is having no trouble moving her bowels and denies any urinary frequency, urgency or dysuria. Related Data Home Medications Medication Instructions Recorded Confirmed venlafaxine 75 mg capsule,extended 75 mg PO 06/08/21 06/30/21 release 24 hr Previous Rx's Medication Instructions Recorded blood sugar diagnostic (OneTouch #50 ea 10/18/18 Ultra Blue Test Strip) Glucose: Home Monitor #1 ea 08/17/19 blood sugar test strips #100 ea 08/17/19 lancets #100 ea 08/17/19 vitamins no.119-iron 1 tab PO DAILY #100 tabs 04/15/20 fumarate 29 mg-folic acid 1 mg tablet hydrocortisone 2.5 % topical cream 1 applic AL BID-QID PRN 10/02/20 with perineal applicator hemorrhoids #30 grams (Anusol-HC) nebulizer and all supplies #1 ea 11/13/20 ipratropium 0.5 mg-albuterol 3 mg 3 ml inhalation Q6-8H PRN 12/01/20 (2.5 mg base)/3 mL nebulization shortness of breath or wheezing soln #90 mL metformin 500 mg tablet 500 mg PO BID #180 tabs 02/12/21 fluticasone propionate 110 1 puff inhalation BID #12 grams 03/10/21 mcg/actuation HFA aerosol inhaler (Flovent HFA) alprazolam 0.25 mg tablet (Xanax) 0.25 mg PO TID PRN anxiety #20 tabs 03/31/21 levonorgestrel-ethinyl estradiol 1 tab PO DAILY #84 tabs 03/31/21 0.1 mg-20 mcg tablet (Aviane) alprazolam 0.25 mg tablet (Xanax) 0.25 mg PO TID PRN anxiety #20 tabs 05/04/21 albuterol sulfate 90 mcg/actuation 2 puff inhalation .q4-6 hours PRN 06/08/21 aerosol inhaler (ProAir HFA) shortness of breath or wheezing #8.5 grams ondansetron 4 mg disintegrating 4 mg PO TID-QID PRN nausea and 10/28/21 tablet vomiting #10 tabs pantoprazole 40 mg tablet,delayed 40 mg PO DAILY #30 tabs 10/28/21 release (Protonix) Allergies Allergy/AdvReac Type Severity Reaction Status Date / Time No Known Drug Allergies Allergy Verified 10/28/21 09:20 Review of Systems Review of Systems Narrative: GENERAL: Denies chills, fatigue, malaise, fever, sweats. HEENT: Denies sinus pain, ear pain, sore throat, difficulty swallowing, dizziness. RESPIRATORY: Denies dyspnea, cough, wheezing, hemoptysis, sputum. CARDIOVASCULAR: Denies chest pain, palpitations, orthopnea, edema, GASTROINTESTINAL: See HPI : Denies dysuria, frequency, incontinence, hematuria, urinary retention. MUSCULOSKELETAL: denies weakness, joint pain, or bony pain SKIN: Denies rash, skin lesions, or other NEUROLOGIC: Denies weakness, headache, numbness, change in speech, confusion, seizures, incoordination. PSYCHIATRIC: No concerning psychosocial issues. 12 point review of systems is negative except for those stated above Patient History Medical History Acute bronchitis (~03/2020) Acute pain of right shoulder (08/29/17) Acute right-sided low back pain without sciatica Asthma (~2000) Cervical paraspinal muscle spasm (~2016) Chronic thoracic back pain Dysmenorrhea (~2006) Frequent loose stools (~1993) Gastritis (~2018) Hemorrhoids (~2014) Laryngitis, chronic Lumbar region somatic dysfunction PCOS (polycystic ovarian syndrome) (~2001) Pelvic somatic dysfunction Rib pain on right side Sacral region somatic dysfunction Segmental and somatic dysfunction of rib cage Shoulder pain, right Skin lesion of right arm (~2013) Thoracic region somatic dysfunction Surgical History History of third molar tooth extraction History of tonsillectomy and adenoidectomy Status post tonsillectomy and adenoidectomy Family History Mother Hyperlipidemia Diabetes mellitus Father No problems noted. Grandmother Heart disease Emphysema lung Smoker Grandfather Family estrangement Grandmother No problems noted. Grandfather No problems noted. Social History household members: significant other and children Smoking Status: Never smoker alcohol intake: current Smoking Status: Never smoker alcohol intake frequency: holidays/special occasions only Substance Use Type: marijuana Exam Narrative Exam Narrative: GENERAL: [18] year old patient appears stated age. Well-developed patient, in obvious distress, obviously uncomfortable HEAD: Atraumatic. Normocephalic. EYES: Pupils equal round and reactive. Extraocular motions intact. No scleral icterus. No injection or drainage. ENT: Nose without bleeding, purulent drainage. Throat without erythema, tonsillar hypertrophy or exudate. Airway patent. NECK: Trachea midline. Non tender CARDIOVASCULAR: Regular rate and rhythm without murmurs, gallops, or rubs. RESPIRATORY: Clear to auscultation. Breath sounds equal bilaterally. No wheezes, rales, or rhonchi. GASTROINTESTINAL: Abdomen soft, tender in the epigastrium, nondistended. Bowel sounds present EXTREMITIES: No edema or joint tenderness. BACK: Nontender without deformity or crepitance. No flank tenderness. NEURO: AOx3. SKIN: No rash or erythema of visible areas Initial Vital Signs Initial Vital Signs: Vital Signs Temperature 97.2 F L 10/28/21 09:15 Pulse Rate 67 10/28/21 09:15 Respiratory Rate 16 10/28/21 09:15 Blood Pressure 137/100 H 10/28/21 09:15 Pulse Oximetry 99 10/28/21 09:15 Oxygen Delivery Method 10/28/21 09:15 Course Orders Ordered: ED Orders 10/28/21 09:21 US abdomen limited Stat 10/28/21 09:25 Urinalysis and Microscopic Stat 10/28/21 09:35 COVID19 -Nasal RAPID/Pre-Proc Stat Complete Blood Count AUTO DIFF Stat Comprehensive Metabolic Panel Stat Lipase Stat Magnesium Stat 10/28/21 10:13 CT abdomen pelvis w con Stat Discontinued Medications Al Hydrox/Mg Hydrox/Simethicone 20 ml/ Lidocaine HCl 15 ml 0 ml PO NOW ONE Stop: 10/28/21 09:18 Last Admin: 10/28/21 09:44 Dose: 35 ml Documented By: LOS Hydromorphone HCl (Hydromorphone 0.5 Mg Inj) 0.5 mg IV NOW ONE Stop: 10/28/21 10:14 Last Admin: 10/28/21 10:15 Dose: 0.5 mg Documented By: LOS(2) Sodium Chloride (Normal Saline 0.9%) 1,000 mls @ 1,000 mls/hr IV BOLUS ONE Stop: 10/28/21 10:16 Last Infusion: 10/28/21 10:22 Dose: 0 mls/hr Documented By: LOS(2) Admin: 10/28/21 09:44 Dose: 1,000 mls/hr Documented By: LOS Lorazepam (Lorazepam 2 Mg/Ml Inj) 1 mg IV NOW ONE Stop: 10/28/21 11:49 Last Admin: 10/28/21 11:56 Dose: 1 mg Documented By: AURELIA Ondansetron HCl (Ondansetron 4 Mg/2 Ml Inj) 4 mg IV NOW ONE Stop: 10/28/21 09:18 Last Admin: 10/28/21 09:44 Dose: 4 mg Documented By: LOS Pantoprazole Sodium (Pantoprazole 40 Mg Vial) 40 mg IV NOW ONE Stop: 10/28/21 09:18 Last Admin: 10/28/21 09:44 Dose: 40 mg Documented By: LOS Reevaluation(s) Reevaluation #1: Patient still having pain, will alter therapeutic approach. Vital Signs Vital signs: Vital Signs - 8 hr 10/28/21 10:16 10/28/21 10:17 10/28/21 10:17 Pulse Rate 63 63 Blood Pressure 158/78 H Pulse Oximetry 99 99 10/28/21 10:30 10/28/21 10:30 10/28/21 11:00 Pulse Rate 56 L 55 L Blood Pressure 155/87 H Pulse Oximetry 98 98 10/28/21 11:57 10/28/21 11:57 10/28/21 12:00 Pulse Rate 56 L Blood Pressure 152/67 H 164/84 H Pulse Oximetry 99 10/28/21 12:00 10/28/21 12:27 10/28/21 12:27 Pulse Rate 63 65 Blood Pressure 166/90 H Pulse Oximetry 100 92 10/28/21 12:30 10/28/21 12:30 10/28/21 13:00 Pulse Rate 59 L Blood Pressure 126/63 133/80 Pulse Oximetry 95 10/28/21 13:00 10/28/21 13:15 Pulse Rate 60 Blood Pressure 126/63 Pulse Oximetry 97 MDM - Nausea/Vomiting/Diarrhea Lab Data Result diagrams: 10/28/21 09:35 10/28/21 09:35 Labs: Lab Results 10/28/21 10/28/21 10/28/21 Range/Units 09:25 09:35 09:35 WBC 10.2 (4.5-11.0) X10^3/uL RBC 4.59 (4.0-5.2) X10^6/uL Hgb 13.3 (12.0-16.0) g/dL Hct 38.9 (36-46) % MCV 84.8 (80-100) fL MCH 29.0 (26-34) PG MCHC 34.2 (30-36) % RDW 13.9 (11.6-14.8) % Plt Count 225 (150-400) X10^3/uL Neut % (Auto) 68.6 (50-75) % Lymph % (Auto) 26.2 (25-40) % [place] % (Auto) 4.5 (3-14) % Eos % (Auto) 0.6 L (2-4) % Baso % (Auto) 0.1 (0-2) % Neut # (Auto) 7000 (0826-6330) /uL Lymph # (Auto) 2700 (5481-6010) /uL [place] # (Auto) 500 (0-900) /uL Eos # (Auto) 100 (0-450) /uL Baso # (Auto) 0 (0-100) /uL Sodium 138 (137-145) mmol/L Potassium 3.9 (3.4-5.1) mmol/L Chloride 107 (98-107) mmol/L Carbon Dioxide 19 L (22-32) mmol/L BUN 10 (7-17) mg/dL Creatinine 0.74 (0.52-1.04) mg/dL Estimated GFR > 60 (>60) mL/min BUN/Creatinine Ratio 13.5 (6-22) Glucose 148 H (70-100) mg/dL Calcium 9.7 (8.4-10.2) mg/dL Magnesium 1.6 (1.6-2.3) mg/dL Total Bilirubin 0.4 (0.2-1.3) mg/dL AST 29 (14-36) IU/L ALT 15 (<35) IU/L Alkaline Phosphatase 97 (38-126) U/L Total Protein 8.3 H (6.3-8.2) g/dL Albumin 4.5 (3.5-5.0) g/dL Globulin 3.8 (1.7-4.1) g/dL Albumin/Globulin Ratio 1.2 (1.0-2.8) Lipase 189 (23-300) U/L Urine Color Yellow Urine Appearance Sl cloudy Urine pH 5.5 (4.5-8.0) Ur Specific [place] 1.025 (1.000-1.035) Urine Protein Negative (Negative) Urine Glucose (UA) Negative (Negative) g/dL Urine Ketones Negative (NEGATIVE) Urine Occult Blood 3+ H (Negative) Urine Nitrate Negative (Negative) Urine Bilirubin Negative (NEGATIVE) Urine Urobilinogen 0.2 (0.2) E.U./dL Ur Leukocyte Esterase Trace H (NEGATIVE) Urine RBC 0-1/hpf (0-5/HPF) Urine WBC 1-5/hpf (0-5/HPF) Ur Squamous Epith Cells 5-10 /hpf H (0-5/HPF) Urine Bacteria Many (>30) H (None) Ur Culture Indicated? Cult not indicated SARS-CoV-2 (PCR) (Negative) 10/28/21 Range/Units 09:35 WBC (4.5-11.0) X10^3/uL RBC (4.0-5.2) X10^6/uL Hgb (12.0-16.0) g/dL Hct (36-46) % MCV (80-100) fL MCH (26-34) PG MCHC (30-36) % RDW (11.6-14.8) % Plt Count (150-400) X10^3/uL Neut % (Auto) (50-75) % Lymph % (Auto) (25-40) % [place] % (Auto) (3-14) % Eos % (Auto) (2-4) % Baso % (Auto) (0-2) % Neut # (Auto) (8638-8088) /uL Lymph # (Auto) (3084-1212) /uL [place] # (Auto) (0-900) /uL Eos # (Auto) (0-450) /uL Baso # (Auto) (0-100) /uL Sodium (137-145) mmol/L Potassium (3.4-5.1) mmol/L Chloride (98-107) mmol/L Carbon Dioxide (22-32) mmol/L BUN (7-17) mg/dL Creatinine (0.52-1.04) mg/dL Estimated GFR (>60) mL/min BUN/Creatinine Ratio (6-22) Glucose (70-100) mg/dL Calcium (8.4-10.2) mg/dL Magnesium (1.6-2.3) mg/dL Total Bilirubin (0.2-1.3) mg/dL AST (14-36) IU/L ALT (<35) IU/L Alkaline Phosphatase (38-126) U/L Total Protein (6.3-8.2) g/dL Albumin (3.5-5.0) g/dL Globulin (1.7-4.1) g/dL Albumin/Globulin Ratio (1.0-2.8) Lipase (23-300) U/L Urine Color Urine Appearance Urine pH (4.5-8.0) Ur Specific [place] (1.000-1.035) Urine Protein (Negative) Urine Glucose (UA) (Negative) g/dL Urine Ketones (NEGATIVE) Urine Occult Blood (Negative) Urine Nitrate (Negative) Urine Bilirubin (NEGATIVE) Urine Urobilinogen (0.2) E.U./dL Ur Leukocyte Esterase (NEGATIVE) Urine RBC (0-5/HPF) Urine WBC (0-5/HPF) Ur Squamous Epith Cells (0-5/HPF) Urine Bacteria (None) Ur Culture Indicated? SARS-CoV-2 (PCR) Negative (Negative) Point of Care Testing Test Results Negative Urine Dip Bedside Urine Glucose Negative Bedside Urine Bilirubin - Negative Bedside Urine Ketone +/- 5 Urine Specific [place] 1.030 Bedside Urine Occult Blood +++ Bedside Urine pH 6.0 Bedside Urine Protein - Negative Bedside Urine Urobilinogen 0.2 Bedside Urine Nitrite - Negative Bedside Urine Leukocytes + 70 Esterase ECG Data Interpretation: Close Abdomen/Pelvis CT (Signed) Edwige Alcantara - 10/28/21 Abdomen Ultrasound (Signed) Amita Alford - 10/28/21 Launch?Image [address] [address] [address] Scan Report Signed Patient: Nina Liriano V MR#: [id number] : 1995 Acct:[id number] Age/Sex: 26 / F Date of Service: 10/28/21 Loc: ED Accession Number: [id number] ?? Procedure: CT abdomen pelvis w con Ordering Provider: Rancho Owens D.O. PROCEDURE:? CT ABDOMEN PELVIS W CON ? INDICATIONS:? severe abdominal pain and vomiting ? TECHNIQUE:? After the administration of IV contrast, axial sections were acquired from the lung bases to the pubic symphysis.? Coronal and sagittal reformats were performed.? For radiation dose reduction, the following was used:? automated exposure control, adjustment of mA and/or kV according to patient size. ? COMPARISON:? [facility], CT, CT ABDOMEN PELVIS W CON, 11/25/2020, 14:06. ? FINDINGS:? Image quality:? Excellent.? ? Lung bases:? Unremarkable.? ? Heart:? No significant findings. ? ? ABDOMEN: Liver:? Liver is enlarged measuring 24.2 cm with steatosis. Gallbladder:? Unremarkable.? ? Biliary ducts:? Unremarkable.? ? Pancreas:? Unremarkable.? ? Spleen:? Unremarkable.? ? Adrenal Glands:? Unremarkable.? ? Kidneys and Ureters:? Unremarkable.? ? ? Stomach and Bowel:? Stomach, small bowel loops, and colon are nonobstructive.? Minimal scattered diverticula are present without associated inflammatory change.? Appendix is normal. ? Peritoneum:? No abnormal intraperitoneal fluid.? No free air.? ? Ventral Wall: ? No hernia.? Abdominal Nodes:? No retroperitoneal or mesenteric adenopathy by size criteria.? Vessels:? Aorta and inferior vena cava are normal in size.? ? PELVIS: Pelvic Organs:? Unremarkable.? ? Bladder:? Unremarkable.? ? Pelvic Nodes: No enlarged lymph nodes.? Miscellaneous: No inguinal hernias are seen. ? ? ? Bones:? Unremarkable.? IMPRESSION:? ? Hepatomegaly with steatosis.? ? Diverticulosis. ? No obstruction.? ? Dictated by: Edwige Alcantara M.D. on 10/28/2021 at 11:49 ? ? Approved by: Edwige Alcantara M.D. on 10/28/2021 at 11:51 ? MDM Narrative Medical decision making narrative: Patient has very reassuring history and physical exam as well as labs, imaging and response to therapies. Given her significant epigastric pain, there is concern for pancreatitis, gastritis and gallbladder disease, labs demonstrated no abnormal findings, ultrasound was essentially normal as was CT scan. She had complete resolution of symptoms with above-stated therapies, pain is well controlled, tolerating orals. She is encouraged to take medications as prescribed, consider clear liquid diet for the next 48 hours and advance slowly as tolerated, return precautions discussed and questions answered to her apparent satisfaction Discharge Plan Departure Patient Disposition: Home Clinical Impression: Vomiting, Epigastric abdominal pain Instructions: DI for Vomiting -- Adult, DI for Epigastric Pain Activity Restrictions/Additional Instructions: *You have been diagnosed with [abdominal pain and vomit] * As we discussed your history and physical exam as well as labs and imaging are very reassuring. There is no evidence of any severe diagnoses that would require a specific or immediate intervention. *What to do: *Please continue to take your regular medications as directed. [x ] New medication prescriptions sent to your pharmacy: [ [facility]] *Please follow up with your primary care provider in 2-3 days, call for an appointment. Let them know you were seen in the Emergency Department and that we ask that you be seen in follow up. We will electronically transmit a record of today's note if your PCP is in our system *Please consider a clear liquid diet for the next 24-48 hours and then slowly advance to regular as tolerated. Also, try to avoid alcohol, nicotine, caffeine, spicy, acidic or fatty foods as this may worsen your symptoms *If you do not have a primary care provider please contact the [facility] Resource line at [phone]. They will ask some questions about your medical history and help get you set up with a doctor in the community. *Return to Emergency Department if you should have any new, worsening or concerning symptoms, such as [fever greater than 101 F, shaking chills, worsening pain, persistent vomiting or other bothersome symptoms] Prescriptions: New pantoprazole [Protonix] 40 mg tablet,delayed release (DR/EC) 40 mg PO DAILY Qty: 30 0RF ondansetron 4 mg tablet,disintegrating 4 mg PO TID-QID PRN (Reason: nausea and vomiting) Qty: 10 0RF No Action (DME) OneTouch Ultra Blue Test Strip strip See Dose Instructions .ROUTE .MEDSUPPLY Qty: 50 11RF Dose Instruction: As directed Rx Instructions: check blood sugar once a day (DME) Glucose: Home Monitor 0 .Route .MEDSUPPLY Qty: 1 0RF Rx Instructions: Use to test blood sugars at home to test once daily. (DME) blood sugar test strips Qty: 100 6RF Rx Instructions: Use with glucometer to test blood sugars once a day. (DME) lancets Qty: 100 6RF Rx Instructions: Use with glucometer to test blood sugars once a day. (DME) nebulizer and all supplies See Rx Instructions .Route .MEDSUPPLY Qty: 1 0RF Rx Instructions: As directed Please fax order to [facility] or Brian pineda to proceed with neb supplies request, thank you. ipratropium-albuterol 0.5 mg-3 mg(2.5 mg base)/3 mL solution for nebulization 3 ml inhalation Q6-8H PRN (Reason: shortness of breath or wheezing) Qty: 90 0RF metformin 500 mg tablet 500 mg PO BID Qty: 180 3RF alprazolam [Xanax] 0.25 mg tablet 0.25 mg PO TID PRN (Reason: anxiety) Qty: 20 0RF PNV 119-iron fum-folic acid 29 mg iron- 1 mg tablet 1 tab PO DAILY Qty: 100 3RF hydrocortisone [Anusol-HC] 2.5 % cream with perineal applicator 1 applic AL BID-QID PRN (Reason: hemorrhoids) Qty: 30 2RF alprazolam [Xanax] 0.25 mg tablet 0.25 mg PO TID PRN (Reason: anxiety) Qty: 20 0RF levonorgestrel-ethinyl estrad [Aviane] 0.1-20 mg-mcg tablet 1 tab PO DAILY Qty: 84 4RF Flovent HFA 110 mcg/actuation HFA aerosol inhaler 1 puff inhalation BID Qty: 12 3RF Rx Instructions: administer with spacer. [place] teeth after use venlafaxine 75 mg capsule,extended release 24hr 75 mg PO albuterol sulfate [ProAir HFA] 90 mcg/actuation HFA aerosol inhaler 2 puff INHALATION .q4-6 hours PRN (Reason: shortness of breath or wheezing) Qty: 8.5 3RF Referrals: Glynn Aguirre, [Primary Care Provider] - Visit Report Forms: Patient Portal/API
--- NOTE | 2021-10-28 09:21 | DI.US.S_ITS ---
PROCEDURE: US ABDOMEN LIMITED INDICATIONS: EPIGASTRIC PAIN; VOMITING TECHNIQUE: Real-time scanning was performed of the abdominal and retroperitoneal organs, with image documentation. COMPARISON: [facility], CT, CT ABDOMEN PELVIS W CON, 10/28/2021, 10:38. [facility], US, US ABDOMEN LIMITED, 10/03/2018, 9:45. FINDINGS: Liver: Liver is mildly enlarged measuring 20.4 cm in length. There is mild diffuse increased hepatic echotexture. Gallbladder: No gallstones. No gallbladder wall thickening, pericholecystic fluid or sonographic Jeter's sign. Biliary ducts: Intrahepatic bile ducts are non-dilated. Extrahepatic bile duct caliber is normal in caliber measuring 3.6 mm. Pancreas: Visualized portions of the pancreas are sonographically normal. Miscellaneous: No free abdominal fluid. IMPRESSION: 1. Diffusely increased hepatic echotexture. This finding is most likely secondary to hepatic fatty infiltration although other hepatocellular disease may have a similar appearance. Recommend clinical correlation. 2. Normal gallbladder, biliary duct and pancreas. Dictated by: Sofia Alford M.D. on 10/28/2021 at 10:56 Approved by: Sofia Alford M.D. on 10/28/2021 at 10:58
[2021-10-28] MEDS: ONDANSETRON 4 MG/2 ML INJ IV (09:44)
[2021-10-28] MEDS: PANTOPRAZOLE 40 MG VIAL IV (09:44)
[2021-10-28] MEDS: SODIUM CHLORIDE 0.9% 1,000 ML 1000 ML IV (09:44)
[2021-10-28] MEDS: MAG HYDROX/ALUMINUM/SIMETH SUS 20 ML, LIDOCAINE VISCOUS 2% 15 ML PO (09:44)
[2021-10-28 09:54] LABS: Add Manual Diff / Slide Review NO; Basophils Absolute Auto 0 /uL (0-100); Basophils Percent Auto 0.1 % (0-2); Eosinophils Absolute Auto 100 /uL (0-450); Eosinophils Percent Auto 0.6 % (2-4); Hematocrit 38.9 % (36-46); Hemoglobin 13.3 g/dL (12.0-16.0); Lymphocytes Absolute Auto 2700 /uL (1100-4500); Lymphocytes Percent Auto 26.2 % (25-40); Mean Corpuscular HGB Conc 34.2 % (30-36); Mean Corpuscular Volume 84.8 fL (80-100); Monocytes Absolute Auto 500 /uL (0-900); Monocytes Percent Auto 4.5 % (3-14); Neutrophils Absolute Auto 7000 /uL (1500-7000); Neutrophils Percent Auto 68.6 % (50-75); Platelet Count 225 X10^3/uL (150-400); Red Blood Cell Count 4.59 X10^6/uL (4.0-5.2); Red Cell Distribution Width 13.9 % (11.6-14.8); White Blood Cell Count 10.2 X10^3/uL (4.5-11.0)
[2021-10-28 10:03] LABS: Alanine Aminotransferase 15 IU/L (<35); Albumin 4.5 g/dL (3.5-5.0); Albumin Globulin Ratio 1.2 (1.0-2.8); Alkaline Phosphatase 97 U/L (38-126); Aspartate Aminotransferase 29 IU/L (14-36); BUN Creatinine Ratio 13.5 (6-22); Bilirubin Total 0.4 mg/dL (0.2-1.3); Blood Urea Nitrogen 10 mg/dL (7-17); Calcium 9.7 mg/dL (8.4-10.2); Carbon Dioxide 19 mmol/L (22-32); Chloride 107 mmol/L (98-107); Estimated Glomerular Filt Rate > 60 mL/min (>60); Globulin 3.8 g/dL (1.7-4.1); Glucose 148 mg/dL (70-100); HEMOLYSIS < 15 (0-50); Lipase 189 U/L (23-300); Magnesium 1.6 mg/dL (1.6-2.3); Potassium 3.9 mmol/L (3.4-5.1); Sodium 138 mmol/L (137-145); Total Protein 8.3 g/dL (6.3-8.2)
[2021-10-28 10:10] LABS: COVID19 -Nasal RAPID Negative (Negative)
[2021-10-28 10:11] LABS: Appearance Urine UA SL CLOUDY; Bilirubin Urine UA NEGATIVE (NEGATIVE); Color Urine UA YELLOW; Glucose Urine UA NEGATIVE (Negative); Ketones Urine UA NEGATIVE (NEGATIVE); Leukocyte Esterase Urine UA TRACE (NEGATIVE); Nitrite Urine UA NEGATIVE (Negative); Occult Blood Urine UA 3+ (Negative); Protein Urine UA NEGATIVE (Negative); Specific Gravity Urine UA 1.025 (1.000-1.035); Urobilinogen Urine UA 0.2 E.U./dL (0.2)
--- NOTE | 2021-10-28 10:13 | DI.CT.S_ITS ---
PROCEDURE: CT ABDOMEN PELVIS W CON INDICATIONS: severe abdominal pain and vomiting TECHNIQUE: After the administration of IV contrast, axial sections were acquired from the lung bases to the pubic symphysis. Coronal and sagittal reformats were performed. For radiation dose reduction, the following was used: automated exposure control, adjustment of mA and/or kV according to patient size. COMPARISON: [facility], CT, CT ABDOMEN PELVIS W CON, 11/25/2020, 14:06. FINDINGS: Image quality: Excellent. Lung bases: Unremarkable. Heart: No significant findings. ABDOMEN: Liver: Liver is enlarged measuring 24.2 cm with steatosis. Gallbladder: Unremarkable. Biliary ducts: Unremarkable. Pancreas: Unremarkable. Spleen: Unremarkable. Adrenal Glands: Unremarkable. Kidneys and Ureters: Unremarkable. Stomach and Bowel: Stomach, small bowel loops, and colon are nonobstructive. Minimal scattered diverticula are present without associated inflammatory change. Appendix is normal. Peritoneum: No abnormal intraperitoneal fluid. No free air. Ventral Wall: No hernia. Abdominal Nodes: No retroperitoneal or mesenteric adenopathy by size criteria. Vessels: Aorta and inferior vena cava are normal in size. PELVIS: Pelvic Organs: Unremarkable. Bladder: Unremarkable. Pelvic Nodes: No enlarged lymph nodes. Miscellaneous: No inguinal hernias are seen. Bones: Unremarkable. IMPRESSION: Hepatomegaly with steatosis. Diverticulosis. No obstruction. Dictated by: Edwige Alcantara M.D. on 10/28/2021 at 11:49 Approved by: Edwige Alcantara M.D. on 10/28/2021 at 11:51
[2021-10-28] MEDS: HYDROMORPHONE 0.5 MG INJ IV (10:15)
[2021-10-28 10:16] LABS: pH Urine UA 5.5 (4.5-8.0)
[2021-10-28 10:29] LABS: Bacteria Urine Many (>30); Culture Indicated Urine Cult Not Indicated; RBC Urine 0-1/HPF (0-5/HPF); Squamous Epithelial Cell Urine 5-10 /HPF (0-5/HPF); WBC Urine 1-5/HPF (0-5/HPF)
[2021-10-28] MEDS: LORazepam 2 MG/ML INJ 1 MG IV (11:56)
--- NOTE | 2021-10-28 12:30 | PC.NURSE ---
Checked on pt. Pt reports feeling a little better after the 1mg ativan.
== END 2021-10-28 13:16 | disposition home or self-care (01) ==
PROVIDERS: Emergency Provider Emergency Medicine; Family Provider Family Medicine; PCP Family Medicine
DX: R10.13 Epigastric pain (principal); R11.2 Nausea with vomiting, unspecified; Z20.822 Contact with and (suspected) exposure to COVID-19
CPT/HCPCS: 36415; 74177; 76705; 80053; 81001; 81003; 81025; 83690; 83735; 85025; 87635; 96361; 96374; 96375; 99284; C9803; C9113; J1170; J2060; J2405; Q9967

== ENCOUNTER → 2022-01-14 15:39 | Outpatient (CLI) | payer OTHER, MEDICAID, SELFPAY ==
[2022-01-14 16:57] LABS: Hemoglobin A1C% w Est Avg Glu 5.3 % (4.0-6.0)
== END ==
PROVIDERS: Family Provider Family Medicine; PCP Family Medicine; Referring Provider Pediatrics; Visit Provider Pediatrics
DX: Z86.39 Personal history of other endocrine, nutritional and metabolic disease (principal)
CPT/HCPCS: 36415; 83036

== ENCOUNTER 2022-01-22 15:16 | Emergency (ER) | payer OTHER, MEDICAID, SELFPAY ==
[2022-01-22 15:25] VITALS: BP 123/93; PULSE 81; RESP 18; TEMP 36.2; O2SAT 97; BMI 43.0
[2022-01-22 16:44] LABS: Add Manual Diff / Slide Review NO; Basophils Absolute Auto 0 /uL (0-100); Basophils Percent Auto 0.1 % (0-2); Eosinophils Absolute Auto 0 /uL (0-450); Hematocrit 39.6 % (36-46); Hemoglobin 13.2 g/dL (12.0-16.0); Lymphocytes Absolute Auto 600 /uL (1100-4500); Lymphocytes Percent Auto 5.8 % (25-40); Mean Corpuscular HGB Conc 33.4 % (30-36); Mean Corpuscular Hemoglobin 28.1 PG (26-34); Mean Corpuscular Volume 84.1 fL (80-100); Monocytes Absolute Auto 200 /uL (0-900); Monocytes Percent Auto 1.8 % (3-14); Neutrophils Absolute Auto 10100 /uL (1500-7000); Neutrophils Percent Auto 92.3 % (50-75); Platelet Count 224 X10^3/uL (150-400); Red Blood Cell Count 4.71 X10^6/uL (4.0-5.2)
[2022-01-22] MEDS: ONDANSETRON 4 MG/2 ML INJ IV (16:45)
[2022-01-22 16:52] LABS: Alanine Aminotransferase 17 IU/L (<35); Albumin 4.5 g/dL (3.5-5.0); Albumin Globulin Ratio 1.1 (1.0-2.8); Alkaline Phosphatase 103 U/L (38-126); Aspartate Aminotransferase 28 IU/L (14-36); BUN Creatinine Ratio 15.9 (6-22); Bilirubin Total 0.7 mg/dL (0.2-1.3); Blood Urea Nitrogen 10 mg/dL (7-17); Calcium 9.8 mg/dL (8.4-10.2); Carbon Dioxide 22 mmol/L (22-32); Chloride 101 mmol/L (98-107); Estimated Glomerular Filt Rate > 60 mL/min (>60); Globulin 4.2 g/dL (1.7-4.1); Glucose 154 mg/dL (70-100); HEMOLYSIS < 15 (0-50); Lipase 89 U/L (23-300); Potassium 3.9 mmol/L (3.4-5.1); Sodium 138 mmol/L (137-145); Total Protein 8.7 g/dL (6.3-8.2)
--- NOTE | 2022-01-22 17:39 | ED_ITS ---
HPI - Nausea/Vomiting/Diarrhea General Chief complaint: Nausea/Vomiting/Diarrhea Stated complaint: NVD Time Seen by Provider: 01/22/22 17:07 Source: patient Mode of arrival: Family Vehicle History of Present Illness HPI Narrative: Patient here for nonbloody emesis that started today. Unable to hold any medications or fluids down. LMP 4 weeks ago. Patient did not know she was . Positive test. Patient would be G4 now. Is very anxious and tearful and upset because she had stillborn 1 year ago. She was not p axel on being again. A close family friend is employed here and is next to patient now. Social work [place] is next to patient as well. Denies any abdominal pain vaginal bleeding. No cough cold or congestion. Patient did not drive here Related Data Home Medications Medication Instructions Recorded Confirmed hydroxyzine pamoate 25 mg capsule 25 mg PO DAILY 10/29/21 01/14/22 venlafaxine 150 mg 150 mg PO DAILY 10/29/21 01/14/22 capsule,extended release 24 hr Previous Rx's Medication Instructions Recorded blood sugar diagnostic (OneTouch #50 ea 10/18/18 Ultra Blue Test Strip) Glucose: Home Monitor #1 ea 08/17/19 blood sugar test strips #100 ea 08/17/19 lancets #100 ea 08/17/19 vitamins no.119-iron 1 tab PO DAILY #100 tabs 04/15/20 fumarate 29 mg-folic acid 1 mg tablet hydrocortisone 2.5 % topical cream 1 applic [place] BID-QID PRN 10/02/20 with perineal applicator hemorrhoids #30 grams (Anusol-HC) nebulizer and all supplies #1 ea 11/13/20 ipratropium 0.5 mg-albuterol 3 mg 3 ml inhalation Q6-8H PRN 12/01/20 (2.5 mg base)/3 mL nebulization shortness of breath or wheezing soln #90 mL metformin 500 mg tablet 500 mg PO BID #180 tabs 02/12/21 fluticasone propionate 110 1 puff inhalation BID #12 grams 03/10/21 mcg/actuation HFA aerosol inhaler (Flovent HFA) levonorgestrel-ethinyl estradiol 1 tab PO DAILY #84 tabs 03/31/21 0.1 mg-20 mcg tablet (Aviane) albuterol sulfate 90 mcg/actuation 2 puff inhalation .q4-6 hours PRN 06/08/21 aerosol inhaler (ProAir HFA) shortness of breath or wheezing #8.5 grams pantoprazole 40 mg tablet,delayed 40 mg PO DAILY #30 tabs 10/28/21 release (Protonix) dicyclomine 10 mg capsule 10 mg PO TID #30 caps 10/29/21 ondansetron 8 mg disintegrating 8 mg PO TID-QID PRN nausea and 01/22/22 tablet vomiting #30 tabs Allergies Allergy/AdvReac Type Severity Reaction Status Date / Time No Known Drug Allergies Allergy Verified 01/22/22 15:25 Review of Systems Review of Systems Narrative: GENERAL: Denies chills, fatigue, malaise, fever, sweats. HEENT: Denies sinus pain, ear pain, sore throat RESPIRATORY: Denies dyspnea, cough CARDIOVASCULAR: Denies chest pain, palpitations GASTROINTESTINAL: Positive for nausea, vomiting, negative for abdominal pain : Denies dysuria, frequency, hematuria MUSCULOSKELETAL: denies muscle or bony pain SKIN: Denies rash, skin lesions NEUROLOGIC: Denies weakness, numbness ROS Unobtainable: All systems reviewed & are unremarkable except as noted in HPI and below Patient History Medical History Acute bronchitis (~03/2020) Acute pain of right shoulder (08/29/17) Acute right-sided low back pain without sciatica Asthma (~2000) Cervical paraspinal muscle spasm (~2016) Chronic thoracic back pain Dysmenorrhea (~2006) Folliculitis Frequent loose stools (~1993) Gastritis (~2018) Hemorrhoids (~2014) History of hyperglycemia Laryngitis, chronic Lumbar region somatic dysfunction PCOS (polycystic ovarian syndrome) (~2001) Pelvic somatic dysfunction Rib pain on right side Sacral region somatic dysfunction Segmental and somatic dysfunction of rib cage Shoulder pain, right Skin lesion of right arm (~2013) Thoracic region somatic dysfunction Surgical History History of third molar tooth extraction History of tonsillectomy and adenoidectomy Status post tonsillectomy and adenoidectomy Family History Mother Hyperlipidemia Diabetes mellitus Father No problems noted. Grandmother Heart disease Emphysema lung Smoker Grandfather Family estrangement Grandmother No problems noted. Grandfather No problems noted. Social History household members: significant other and children Smoking Status: Never smoker alcohol intake: current Smoking Status: Never smoker alcohol intake frequency: holidays/special occasions only Substance Use Type: marijuana Exam Narrative Exam Narrative: GENERAL: in no distress, not toxic not dyspneic HEAD: Normocephalic. EYES: Pupils equal round No scleral icterus. ENT: Mucous membranes moist. NECK: Trachea midline. CARDIOVASCULAR: Regular rate and rhythm without murmurs RESPIRATORY: Clear to auscultation. Breath sounds equal bilaterally. No wheezes, rales, or rhonchi. GASTROINTESTINAL: Abdomen soft, non-tender EXTREMITIES: No gross deformities. NEURO: AOx4. SKIN: Warm and dry PSYCH: Patient is very anxious and tearful after being informed she is now, is cooperative Initial Vital Signs Initial Vital Signs: Vital Signs Temperature 97.1 F L 01/22/22 15:25 Pulse Rate 81 01/22/22 15:25 Respiratory Rate 18 01/22/22 15:25 Blood Pressure 123/93 H 01/22/22 15:25 Pulse Oximetry 97 01/22/22 15:25 Oxygen Delivery Method 01/22/22 15:25 Course Orders Ordered: ED Orders 01/22/22 16:33 Complete Blood Count AUTO DIFF Stat Comprehensive Metabolic Panel Stat HCG Quantitative /Beta subunit Stat Lipase Stat 01/22/22 17:46 Consult to [facility] [place] - Fruit Raiser Stat Discontinued Medications Diphenhydramine HCl (Diphenhydramine 50 Mg/Ml Vial) 25 mg IV NOW ONE Stop: 01/22/22 17:43 Last Admin: 01/22/22 18:00 Dose: 25 mg Documented By: NR Sodium Chloride (Normal Saline 0.9%) 1,000 mls @ 1,000 mls/hr IV BOLUS ONE Stop: 01/22/22 18:37 Last Infusion: 01/22/22 19:30 Dose: 0 mls/hr Documented By: Admin: 01/22/22 18:00 Dose: 1,000 mls/hr Documented By: NR Ondansetron HCl (Ondansetron 4 Mg/2 Ml Inj) 4 mg IV NOW ONE Stop: 01/22/22 16:42 Last Admin: 01/22/22 16:45 Dose: 4 mg Documented By: KF Reevaluation(s) Reevaluation #1: Updated patient laboratory studies. Her serum quantitative HCG is essentially negative. Her urine test may be false positive with history of PCOS. She does not want any viral swabs or imaging or any further blood work. She is here mainly concerned for dehydration. She is feeling much better now. She had family friend next to her as well as social work and much more relaxed. She does desire to try to repeat the urine test. She is not upset from informing her originally the results. She does have Zofran at home that she picked up from the pharmacy this morning. Time: 18:23 Reevaluation #2: 2nd urine test is negative. I reviewed with patient. Likely faulty test kit from the 1st test. Patient is very understanding. She feels much better. No nausea or vomiting. She feels better after IV fluids as well. She desires discharge home Time: 19:12 Vital Signs Vital signs: Vital Signs - 8 hr 01/22/22 15:25 01/22/22 19:31 Temperature 97.1 F L Pulse Rate 81 93 H Respiratory Rate 18 18 Blood Pressure 123/93 H 126/60 Pulse Oximetry 97 99 Oxygen Delivery Method Room Air Room Air MDM - Nausea/Vomiting/Diarrhea Differential Diagnosis Differential diagnosis: Likely food poisoning, gastroenteritis and dehydration Lab Data Result diagrams: 01/22/22 16:33 01/22/22 16:33 Labs: Lab Results 01/22/22 01/22/22 01/22/22 Range/Units 16:33 16:33 16:33 WBC 11.0 (4.5-11.0) X10^3/uL RBC 4.71 (4.0-5.2) X10^6/uL Hgb 13.2 (12.0-16.0) g/dL Hct 39.6 (36-46) % MCV 84.1 (80-100) fL MCH 28.1 (26-34) PG MCHC 33.4 (30-36) % RDW 14.0 (11.6-14.8) % Plt Count 224 (150-400) X10^3/uL Neut % (Auto) 92.3 H (50-75) % Lymph % (Auto) 5.8 L (25-40) % [place] % (Auto) 1.8 L (3-14) % Eos % (Auto) 0.0 L (2-4) % Baso % (Auto) 0.1 (0-2) % Neut # (Auto) 73145 H (8814-6778) /uL Lymph # (Auto) 600 L (6150-0839) /uL [place] # (Auto) 200 (0-900) /uL Eos # (Auto) 0 (0-450) /uL Baso # (Auto) 0 (0-100) /uL Sodium 138 (137-145) mmol/L Potassium 3.9 (3.4-5.1) mmol/L Chloride 101 (98-107) mmol/L Carbon Dioxide 22 (22-32) mmol/L BUN 10 (7-17) mg/dL Creatinine 0.63 (0.52-1.04) mg/dL Estimated GFR > 60 (>60) mL/min BUN/Creatinine Ratio 15.9 (6-22) Glucose 154 H (70-100) mg/dL Calcium 9.8 (8.4-10.2) mg/dL Total Bilirubin 0.7 (0.2-1.3) mg/dL AST 28 (14-36) IU/L ALT 17 (<35) IU/L Alkaline Phosphatase 103 (38-126) U/L Total Protein 8.7 H (6.3-8.2) g/dL Albumin 4.5 (3.5-5.0) g/dL Globulin 4.2 H (1.7-4.1) g/dL Albumin/Globulin Ratio 1.1 (1.0-2.8) Lipase 89 (23-300) U/L HCG, Quant < 2.4 mIU/mL Point of Care Testing Test Results Negative Urine Dip Bedside Urine Glucose Negative Bedside Urine Bilirubin - Negative Bedside Urine Ketone +/- 5 Urine Specific [place] 1.030 Bedside Urine Occult Blood - Negative Bedside Urine pH 6.0 Bedside Urine Protein - Negative Bedside Urine Urobilinogen - Negative Bedside Urine Nitrite - Negative Bedside Urine Leukocytes - Negative Esterase MDM Narrative Medical decision making narrative: Appropriate for discharge home. Exam and laboratory studies are reassuring. Likely false-positive test from PCOS or faulty tests specimen/kit. Serum quantitative hCG is negative. Patient understands and is not upset when informed about results on the urine initially. She understands I had to inform her of results at the time. Given that she had a lot of vomiting today. Nausea and vomiting resolved at time of discharge. Not toxic. Return precautions reviewed with her. She desires discharge home Discharge Plan Departure Patient Disposition: Home Clinical Impression: Acute vomiting Instructions: DI for Vomiting -- Adult Activity Restrictions/Additional Instructions: No driving operating machinery tonight. See family doctor next week for re- evaluation. Continue home medications including Zofran for nausea. Keep well hydrated. Return if worse or for any questions or concerns Prescriptions: No Action (DME) OneTouch Ultra Blue Test Strip strip See Dose Instructions .ROUTE .MEDSUPPLY Qty: 50 11RF Dose Instruction: As directed Rx Instructions: check blood sugar once a day (DME) Glucose: Home Monitor 0 .Route .MEDSUPPLY Qty: 1 0RF Rx Instructions: Use to test blood sugars at home to test once daily. (DME) blood sugar test strips Qty: 100 6RF Rx Instructions: Use with glucometer to test blood sugars once a day. (DME) lancets Qty: 100 6RF Rx Instructions: Use with glucometer to test blood sugars once a day. (DME) nebulizer and all supplies See Rx Instructions .Route .MEDSUPPLY Qty: 1 0RF Rx Instructions: As directed Please fax order to [facility] or Brian pineda to proceed with neb supplies request, thank you. ipratropium-albuterol 0.5 mg-3 mg(2.5 mg base)/3 mL solution for nebulization 3 ml inhalation Q6-8H PRN (Reason: shortness of breath or wheezing) Qty: 90 0RF metformin 500 mg tablet 500 mg PO BID Qty: 180 3RF ondansetron 8 mg tablet,disintegrating 8 mg PO TID-QID PRN (Reason: nausea and vomiting) Qty: 30 1RF PNV 119-iron fum-folic acid 29 mg iron- 1 mg tablet 1 tab PO DAILY Qty: 100 3RF hydrocortisone [Anusol-HC] 2.5 % cream with perineal applicator 1 applic [place] BID-QID PRN (Reason: hemorrhoids) Qty: 30 2RF hydroxyzine pamoate 25 mg capsule 25 mg PO DAILY venlafaxine 150 mg capsule,extended release 24hr 150 mg PO DAILY dicyclomine 10 mg capsule 10 mg PO TID Qty: 30 1RF levonorgestrel-ethinyl estrad [Aviane] 0.1-20 mg-mcg tablet 1 tab PO DAILY Qty: 84 4RF Flovent HFA 110 mcg/actuation HFA aerosol inhaler 1 puff inhalation BID Qty: 12 3RF Rx Instructions: administer with spacer. [place] teeth after use albuterol sulfate [ProAir HFA] 90 mcg/actuation HFA aerosol inhaler 2 puff INHALATION .q4-6 hours PRN (Reason: shortness of breath or wheezing) Qty: 8.5 3RF pantoprazole [Protonix] 40 mg tablet,delayed release (DR/EC) 40 mg PO DAILY Qty: 30 0RF Referrals: Glynn Aguirre DO [Primary Care Provider] -
[2022-01-22] MEDS: SODIUM CHLORIDE 0.9% 1,000 ML 1000 ML IV (18:00)
[2022-01-22] MEDS: diphenhydrAMINE 50 MG/ML VIAL 25 MG IV (18:00)
[2022-01-22 18:07] LABS: HCG Quantitative /Beta subunit < 2.4 mIU/mL
--- NOTE | 2022-01-22 18:15 | CM.SWNOTE ---
BIOASSAYIST Note BIOASSAYIST receives consult due to patient's response to new medical news at ED visit. Patient was informed that she is , patient presents as tearful and reports that she lost her daughter a year ago. Patient is 26 y/o female. Patient endorses that she is on medication due to significant life stressors causing anxiety and depression and has medication management and counseling through [facility] in [place]. Patient endorses her therapist is Dana. Patient provides patient with consent to call [facility] and request f/u appt, patient endorses she missed her appt on 01/12 and has not heard back from [facility]. Patient endorses she has supports from mother and friends, patient's family friend was able to comfort patient in the ED. Patient denies HI and SI in triage. Patient denies anything further from BIOASSAYIST. BIOASSAYIST states that BIOASSAYIST is available if patient would like to talk further. Plan: patient to f/u with PCP and [facility] upon medical clearance. SHAD Swenson
[2022-01-22 19:31] VITALS: BP 126/60; PULSE 93; RESP 18; O2SAT 99
== END 2022-01-22 19:33 | disposition home or self-care (01) ==
PROVIDERS: Emergency Provider Emergency Medicine; Family Provider Family Medicine; PCP Family Medicine
DX: R11.10 Vomiting, unspecified (principal)
CPT/HCPCS: 36415; 80053; 81003; 81025; 83690; 84702; 85025; 96361; 96374; 96375; 99284; J1200; J2405

== ENCOUNTER 2022-08-25 07:20 | Emergency (ER) | payer OTHER, MEDICAID, SELFPAY ==
[2022-08-25] VITALS (11 sets, daily range): BP systolic 129–151; BP diastolic 63–76; PULSE 47–60; RESP 18–20; O2SAT 96–100; BMI 40.1
--- NOTE | 2022-08-25 07:30 | ED.GENADULT ---
HPI - General Adult General Chief complaint: Nausea/Vomiting/Diarrhea Stated complaint: vomiting since 12 am Time Seen by Provider: 08/25/22 07:28 History of Present Illness HPI narrative: 26-year-old female nonsmoker with frequent visits for GI symptoms including nausea, vomiting and abdominal pain presents with a chief complaint of nausea, vomiting and diarrhea since about midnight. She has multiple family members with similar type symptoms. They just returned from a road trip to [place] and all seemed to have caught a ?bug?. She states that she is become a bit dizzy, lightheaded in his feeling weak. She has some generalized abdominal pain that seems to be worsened by vomiting. She is had multiple loose stools as well. She denies exposure to bad food or recent antibiotics. She is currently on her menses. She denies urinary complaints such as dysuria, frequency or urgency. She has no upper respiratory complaints such as runny nose, sneezing, sore throat or cough. Related Data Previous Rx's Medication Instructions Recorded blood sugar diagnostic (OneTouch #50 ea 10/18/18 Ultra Blue Test Strip) Glucose: Home Monitor #1 ea 08/17/19 blood sugar test strips #100 ea 08/17/19 lancets #100 ea 08/17/19 vitamins no.119-iron 1 tab PO DAILY #100 tabs 04/15/20 fumarate 29 mg-folic acid 1 mg tablet hydrocortisone 2.5 % topical cream 1 applic [place] BID-QID PRN 10/02/20 with perineal applicator hemorrhoids #30 grams (Anusol-HC) nebulizer and all supplies #1 ea 11/13/20 levonorgestrel-ethinyl estradiol 1 tab PO DAILY #84 tabs 03/31/21 0.1 mg-20 mcg tablet (Aviane) albuterol sulfate 90 mcg/actuation 2 puff inhalation .q4-6 hours PRN 03/26/22 aerosol inhaler (ProAir HFA) shortness of breath or wheezing #8.5 grams fluticasone propionate 110 1 puff inhalation BID #12 grams 03/26/22 mcg/actuation HFA aerosol inhaler (Flovent HFA) ipratropium 0.5 mg-albuterol 3 mg 3 ml inhalation Q6-8H PRN 03/26/22 (2.5 mg base)/3 mL nebulization shortness of breath or wheezing soln #90 mL metformin 500 mg tablet 500 mg PO BID #180 tabs 04/07/22 bupropion HCl 150 mg tablet,12 hr 150 mg PO BID #180 ea 05/26/22 sustained-release ondansetron 4 mg disintegrating 4 mg PO TID-QID PRN nausea and 08/25/22 tablet vomiting #10 tabs pantoprazole 40 mg tablet,delayed 40 mg PO DAILY #30 tabs 08/25/22 release (Protonix) promethazine 25 mg rectal 25 mg [place] Q4-6H PRN nausea and 08/25/22 suppository vomiting #12 ea Allergies Allergy/AdvReac Type Severity Reaction Status Date / Time venlafaxine AdvReac Intermediate [place], Verified 04/14/22 13:53 increased suicidal ideation Review of Systems Review of Systems Narrative: GENERAL: See HPI HEENT: Denies sinus pain, ear pain, sore throat, difficulty swallowing, dizziness. RESPIRATORY: Denies dyspnea, cough, wheezing, hemoptysis, sputum. CARDIOVASCULAR: Denies chest pain, palpitations, orthopnea, edema, GASTROINTESTINAL: See HPI : Denies dysuria, frequency, incontinence, hematuria, urinary retention. MUSCULOSKELETAL: denies weakness, joint pain, or bony pain SKIN: Denies rash, skin lesions, or other NEUROLOGIC: Denies weakness, headache, numbness, change in speech, confusion, seizures, incoordination. PSYCHIATRIC: No concerning psychosocial issues. 12 point review of systems is negative except for those stated above Patient History Medical History Acute bronchitis (~03/2020) Acute pain of right shoulder (08/29/17) Acute right-sided low back pain without sciatica Asthma (~2000) Cervical paraspinal muscle spasm (~2016) Chronic thoracic back pain Dysmenorrhea (~2006) Folliculitis Frequent loose stools (~1993) Gastritis (~2018) Hemorrhoids (~2014) History of hyperglycemia Laryngitis, chronic Lumbar region somatic dysfunction PCOS (polycystic ovarian syndrome) (~2001) Pelvic somatic dysfunction Rib pain on right side Sacral region somatic dysfunction Shoulder pain, right Skin lesion of right arm (~2013) Thoracic region somatic dysfunction Surgical History History of third molar tooth extraction History of tonsillectomy and adenoidectomy Status post tonsillectomy and adenoidectomy Family History Mother Hyperlipidemia Diabetes mellitus Father No problems noted. Grandmother Heart disease Emphysema lung Smoker Grandfather Family estrangement Grandmother No problems noted. Grandfather No problems noted. Social History household members: significant other and children Smoking Status: Never smoker alcohol intake: current Smoking Status: Never smoker alcohol intake frequency: holidays/special occasions only Substance Use Type: marijuana Exam Narrative Exam Narrative: GENERAL: [26] year old patient appears stated age. Well-developed patient, in mild distress. HEAD: Atraumatic. Normocephalic. EYES: Pupils equal round and reactive. Extraocular motions intact. No scleral icterus. No injection or drainage. ENT: Moist mucous membranes Nose without bleeding, purulent drainage. Throat without erythema, tonsillar hypertrophy or exudate. Airway patent. NECK: Trachea midline. Non tender CARDIOVASCULAR: Regular rate and rhythm without murmurs, gallops, or rubs. RESPIRATORY: Clear to auscultation. Breath sounds equal bilaterally. No wheezes, rales, or rhonchi. GASTROINTESTINAL: Abdomen soft, general upper tenderness, seems worse in the left upper quadrant, nondistended. EXTREMITIES: No edema or joint tenderness. BACK: Nontender without deformity or crepitance. No flank tenderness. NEURO: AOx3. SKIN: No rash or erythema of visible areas Initial Vital Signs Initial Vital Signs: Vital Signs Pulse Rate 60 08/25/22 07:28 Respiratory Rate 20 08/25/22 07:28 Blood Pressure 129/76 08/25/22 07:28 Pulse Oximetry 100 08/25/22 07:28 Oxygen Delivery Method Room Air 08/25/22 07:28 Course Orders Ordered: Discontinued Medications Al Hydrox/Mg Hydrox/Simethicone 20 ml/ Lidocaine HCl 15 ml 0 ml PO NOW ONE Stop: 08/25/22 07:29 Last Admin: 08/25/22 08:34 Dose: 20 ml Documented By: AMU Lactated Ringer's (Lactated Ringers) 1,000 mls @ 1,000 mls/hr IV BOLUS ONE Stop: 08/25/22 08:27 Last Infusion: 08/25/22 09:24 Dose: 0 mls/hr Documented By: Admin: 08/25/22 07:39 Dose: 1,000 mls/hr Documented By: DARBY Metoclopramide HCl (Metoclopramide 10 Mg/2 Ml Inj) 10 mg IV NOW ONE Stop: 08/25/22 07:57 Last Admin: 08/25/22 08:03 Dose: 10 mg Documented By: LOS Ondansetron HCl (Ondansetron 4 Mg/2 Ml Inj) 4 mg IV NOW ONE Stop: 08/25/22 07:29 Last Admin: 08/25/22 07:39 Dose: 4 mg Documented By: DARBY Pantoprazole Sodium (Pantoprazole 40 Mg Vial) 40 mg IV NOW ONE Stop: 08/25/22 07:29 Last Admin: 08/25/22 07:39 Dose: 40 mg Documented By: DARBY Reevaluation(s) Reevaluation #1: patient still vomiting, Reglan ordered. GI cocktail held for now Time: 08:09 Vital Signs Vital signs: Vital Signs - 8 hr 08/25/22 07:28 08/25/22 07:44 08/25/22 08:00 Pulse Rate 60 49 L 60 Respiratory Rate 20 Blood Pressure 129/76 Pulse Oximetry 100 99 98 Oxygen Delivery Method Room Air 08/25/22 08:30 08/25/22 09:00 08/25/22 09:23 Pulse Rate 47 L 48 L Respiratory Rate Blood Pressure 142/67 H Pulse Oximetry 98 97 Oxygen Delivery Method 08/25/22 09:23 08/25/22 09:30 08/25/22 09:31 Pulse Rate 51 L 48 L 49 L Respiratory Rate Blood Pressure Pulse Oximetry 99 99 99 Oxygen Delivery Method 08/25/22 09:31 08/25/22 10:00 08/25/22 10:01 Pulse Rate 52 L Respiratory Rate Blood Pressure 141/65 H 151/72 H Pulse Oximetry 97 Oxygen Delivery Method 08/25/22 10:01 Pulse Rate 49 L Respiratory Rate Blood Pressure Pulse Oximetry 96 Oxygen Delivery Method Medical Decision Making Lab Data 08/25/22 07:43 08/25/22 07:43 Labs: Lab Results 08/25/22 08/25/22 08/25/22 Range/Units 07:43 07:43 09:00 WBC 7.8 (4.5-11.0) X10^3/uL RBC 4.57 (4.0-5.2) X10^6/uL Hgb 12.7 (12.0-16.0) g/dL Hct 37.7 (36-46) % MCV 82.5 (80-100) fL MCH 27.8 (26-34) PG MCHC 33.7 (30-36) % RDW 15.0 H (11.6-14.8) % Plt Count 203 (150-400) X10^3/uL Neut % (Auto) 76.0 H (50-75) % Lymph % (Auto) 19.4 L (25-40) % [place] % (Auto) 4.1 (3-14) % Eos % (Auto) 0.3 L (2-4) % Baso % (Auto) 0.2 (0-2) % Neut # (Auto) 6000 (0413-7517) /uL Lymph # (Auto) 1500 (9774-9387) /uL [place] # (Auto) 300 (0-900) /uL Eos # (Auto) 0 (0-450) /uL Baso # (Auto) 0 (0-100) /uL Sodium 137 (137-145) mmol/L Potassium 3.9 (3.4-5.1) mmol/L Chloride 104 (98-107) mmol/L Carbon Dioxide 24 (22-32) mmol/L BUN 9 (7-17) mg/dL Creatinine 0.69 (0.52-1.04) mg/dL Estimated GFR > 60 (>60) mL/min BUN/Creatinine Ratio 13.0 (6-22) Glucose 146 H (70-100) mg/dL Calcium 9.5 (8.4-10.2) mg/dL Magnesium 1.7 (1.6-2.3) mg/dL Total Bilirubin 0.5 (0.2-1.3) mg/dL AST 31 (14-36) IU/L ALT 21 (<35) IU/L Alkaline Phosphatase 109 (38-126) U/L Total Protein 8.0 (6.3-8.2) g/dL Albumin 4.3 (3.5-5.0) g/dL Globulin 3.7 (1.7-4.1) g/dL Albumin/Globulin Ratio 1.2 (1.0-2.8) Lipase 194 (23-300) U/L Urine Color Yellow Urine Appearance Clear Urine pH 7.5 (4.5-8.0) Ur Specific [place] 1.015 (1.000-1.035) Urine Protein Negative (Negative) Urine Glucose (UA) Negative (Negative) g/dL Urine Ketones Trace H (NEGATIVE) Urine Occult Blood 2+ H (Negative) Urine Nitrate Negative (Negative) Urine Bilirubin Negative (NEGATIVE) Urine Urobilinogen 0.2 (0.2) E.U./dL Ur Leukocyte Esterase Negative (NEGATIVE) Urine RBC 5-10/hpf H (0-5/HPF) Urine WBC None seen (0-5/HPF) Ur Squamous Epith Cells 1-5 /hpf (0-5/HPF) Urine Bacteria None seen (None) Ur Culture Indicated? Cult not indicated Point of Care Testing Test Results Negative Urine Dip Bedside Urine Glucose Negative Bedside Urine Bilirubin - Negative Bedside Urine Ketone - Negative Urine Specific [place] 1.015 Bedside Urine Occult Blood +++ Bedside Urine pH 8.0 Bedside Urine Protein +/- 15 Bedside Urine Urobilinogen - Negative Bedside Urine Nitrite - Negative Bedside Urine Leukocytes - Negative Esterase Point of care testing: Point of Care Testing Test Results Negative Urine Dip Bedside Urine Glucose Negative Bedside Urine Bilirubin - Negative Bedside Urine Ketone - Negative Urine Specific [place] 1.015 Bedside Urine Occult Blood +++ Bedside Urine pH 8.0 Bedside Urine Protein +/- 15 Bedside Urine Urobilinogen - Negative Bedside Urine Nitrite - Negative Bedside Urine Leukocytes - Negative Esterase MDM Narrative Medical decision making narrative: CC: 26-year-old female with nausea, vomiting and diarrhea Complicating co-morbidities: Prior history of same Data collected from: Patient Medical records reviewed: Prior notes reviewed in our EMR Differential considered, but not limited to: Gastroenteritis, food-borne illness, versus other Exam documented above, pertinent findings include: Heart rate regular, lungs clear, generalized abdominal discomfort, bowel sounds present Lab Test results independently reviewed as above. Pertinent findings: Treatments: Fluids, Protonix, Zofran Re-evaluations: Patient ambulatory through the department, tolerating orals, pain controlled Discussion: Patient with persistent nausea and vomiting and some upper abdominal pain with reassuring history and physical exam, labs are unremarkable and ultrasound has no significant findings. Her symptoms have responded to typical therapies, she is tolerating orals. No indication for advanced imaging or further workup at this time Disposition: see below, along with detailed discharge instructions that have been reviewed with patient as well as indications for ED re-evaluation and additional outpatient follow up Discharge Plan Departure Patient Disposition: Home Clinical Impression: Vomiting, Acute epigastric pain, Diarrhea Instructions: DI for Abdominal Pain-Adult, Nausea and Vomiting-Adult Activity Restrictions/Additional Instructions: *You have been diagnosed with [abdominal pain, nausea, vomiting and diarrhea] * As we discussed your history and physical exam as well as labs and imaging are very reassuring. There is no evidence of any severe diagnoses that would require a specific or immediate intervention. *What to do: *Please continue to take your regular medications as directed. [x ] New medication prescriptions sent to your pharmacy: [facility] *Please follow up with your primary care provider in 2-3 days, call for an appointment. Let them know you were seen in the Emergency Department and that we ask that you be seen in follow up. We will electronically transmit a record of today's note if your PCP is in our system *Please consider a clear liquid diet for the next 24-48 hours and then slowly advance to regular as tolerated. Also, try to avoid alcohol, nicotine, caffeine, spicy, acidic or fatty foods as this may worsen your symptoms *If you do not have a primary care provider please contact the [facility] Resource line at [phone]. They will ask some questions about your medical history and help get you set up with a doctor in the community. *Return to Emergency Department if you should have any new, worsening or concerning symptoms, such as [fever greater than 101 F, shaking chills, worsening pain, persistent vomiting or other bothersome symptoms] Prescriptions: New pantoprazole [Protonix] 40 mg tablet,delayed release (DR/EC) 40 mg PO DAILY Qty: 30 0RF ondansetron 4 mg tablet,disintegrating 4 mg PO TID-QID PRN (Reason: nausea and vomiting) Qty: 10 0RF promethazine 25 mg suppository 25 mg [place] Q4-6H PRN (Reason: nausea and vomiting) Qty: 12 0RF No Action (DME) OneTouch Ultra Blue Test Strip strip See Dose Instructions .ROUTE .MEDSUPPLY Qty: 50 11RF Dose Instruction: As directed Rx Instructions: check blood sugar once a day (DME) Glucose: Home Monitor 0 .Route .MEDSUPPLY Qty: 1 0RF Rx Instructions: Use to test blood sugars at home to test once daily. (DME) blood sugar test strips Qty: 100 6RF Rx Instructions: Use with glucometer to test blood sugars once a day. (DME) lancets Qty: 100 6RF Rx Instructions: Use with glucometer to test blood sugars once a day. (DME) nebulizer and all supplies See Rx Instructions .Route .MEDSUPPLY Qty: 1 0RF Rx Instructions: As directed [facility] or [facility] to proceed with neb supplies request, thank you. metformin 500 mg tablet 500 mg PO BID Qty: 180 3RF bupropion HCl 150 mg tablet sustained-release 12 hr 150 mg PO BID Qty: 180 1RF PNV 119-iron fum-folic acid 29 mg iron- 1 mg tablet 1 tab PO DAILY Qty: 100 3RF hydrocortisone [Anusol-HC] 2.5 % cream with perineal applicator 1 applic [place] BID-QID PRN (Reason: hemorrhoids) Qty: 30 2RF levonorgestrel-ethinyl estrad [Aviane] 0.1-20 mg-mcg tablet 1 tab PO DAILY Qty: 84 4RF ipratropium-albuterol 0.5 mg-3 mg(2.5 mg base)/3 mL solution for nebulization 3 ml inhalation Q6-8H PRN (Reason: shortness of breath or wheezing) Qty: 90 0RF Flovent HFA 110 mcg/actuation HFA aerosol inhaler 1 puff inhalation BID Qty: 12 3RF Rx Instructions: administer with spacer. [place] teeth after use albuterol sulfate [ProAir HFA] 90 mcg/actuation HFA aerosol inhaler 2 puff INHALATION .q4-6 hours PRN (Reason: shortness of breath or wheezing) Qty: 8.5 3RF Referrals: Malu Nieto DO [Primary Care Provider] - Stand Alone Forms: Patient Portal/API
[2022-08-25] MEDS: LACTATED RINGERS 1,000 ML 1000 ML IV (07:39)
[2022-08-25] MEDS: ONDANSETRON 4 MG/2 ML INJ IV (07:39)
[2022-08-25] MEDS: PANTOPRAZOLE 40 MG VIAL IV (07:39)
[2022-08-25 07:52] LABS: Add Manual Diff / Slide Review NO; Basophils Absolute Auto 0 /uL (0-100); Basophils Percent Auto 0.2 % (0-2); Eosinophils Absolute Auto 0 /uL (0-450); Eosinophils Percent Auto 0.3 % (2-4); Hematocrit 37.7 % (36-46); Hemoglobin 12.7 g/dL (12.0-16.0); Lymphocytes Absolute Auto 1500 /uL (1100-4500); Lymphocytes Percent Auto 19.4 % (25-40); Mean Corpuscular HGB Conc 33.7 % (30-36); Mean Corpuscular Hemoglobin 27.8 PG (26-34); Mean Corpuscular Volume 82.5 fL (80-100); Monocytes Absolute Auto 300 /uL (0-900); Monocytes Percent Auto 4.1 % (3-14); Neutrophils Absolute Auto 6000 /uL (1500-7000); Platelet Count 203 X10^3/uL (150-400); Red Blood Cell Count 4.57 X10^6/uL (4.0-5.2); White Blood Cell Count 7.8 X10^3/uL (4.5-11.0)
[2022-08-25] MEDS: METOCLOPRAMIDE 10 MG/2 ML INJ IV (08:03)
[2022-08-25 08:07] LABS: Alanine Aminotransferase 21 IU/L (<35); Albumin 4.3 g/dL (3.5-5.0); Albumin Globulin Ratio 1.2 (1.0-2.8); Alkaline Phosphatase 109 U/L (38-126); Aspartate Aminotransferase 31 IU/L (14-36); Bilirubin Total 0.5 mg/dL (0.2-1.3); Blood Urea Nitrogen 9 mg/dL (7-17); Calcium 9.5 mg/dL (8.4-10.2); Carbon Dioxide 24 mmol/L (22-32); Chloride 104 mmol/L (98-107); Estimated Glomerular Filt Rate > 60 mL/min (>60); Globulin 3.7 g/dL (1.7-4.1); Glucose 146 mg/dL (70-100); HEMOLYSIS < 15 (0-50); Lipase 194 U/L (23-300); Magnesium 1.7 mg/dL (1.6-2.3); Potassium 3.9 mmol/L (3.4-5.1); Sodium 137 mmol/L (137-145)
[2022-08-25] MEDS: MAG HYDROX/ALUMINUM/SIMETH SUS 20 ML, LIDOCAINE VISCOUS 2% 15 ML PO (08:34)
--- NOTE | 2022-08-25 09:24 | PC.NURSE ---
Pt ambulated a lap around the ED. HR 70, BP142/67 RR 18 100% O2. Complains of upper abdominal pain. Mother at the bedside. Temp 98.7
[2022-08-25 09:25] LABS: Appearance Urine UA CLEAR; Bilirubin Urine UA NEGATIVE (NEGATIVE); Color Urine UA YELLOW; Glucose Urine UA NEGATIVE (Negative); Ketones Urine UA TRACE (NEGATIVE); Leukocyte Esterase Urine UA NEGATIVE (NEGATIVE); Nitrite Urine UA NEGATIVE (Negative); Occult Blood Urine UA 2+ (Negative); Protein Urine UA NEGATIVE (Negative); Specific Gravity Urine UA 1.015 (1.000-1.035); Urobilinogen Urine UA 0.2 E.U./dL (0.2)
[2022-08-25 09:26] LABS: pH Urine UA 7.5 (4.5-8.0)
[2022-08-25 09:28] LABS: Bacteria Urine None Seen; Culture Indicated Urine Cult Not Indicated; RBC Urine 5-10/HPF (0-5/HPF); Squamous Epithelial Cell Urine 1-5 /HPF (0-5/HPF); WBC Urine None Seen (0-5/HPF)
--- NOTE | 2022-08-25 09:30 | DI.US.S_ITS ---
PROCEDURE: US ABDOMEN LIMITED INDICATIONS: epigastric pain TECHNIQUE: Real-time focused scanning was performed of the abdomen, with image documentation. COMPARISON: , CT, CT ABDOMEN PELVIS W CON, 10/28/2021, 10:38. , US, US ABDOMEN LIMITED, 10/28/2021, 9:36. FINDINGS: The liver demonstrates enlarged size. The liver demonstrates generalized mildly increased echogenicity. This decreases ultrasound sensitivity for detection of hepatic masses. No findings of gallstones or sludge are seen. The gallbladder wall is not thickened, measuring 3 mm or less. No specific pericholecystic fluid is seen. The sonographic Jeter sign is negative. There is no biliary dilatation, the common bile duct measures 6 mm. No significant pancreatic abnormality is seen on these images. IMPRESSION: The gallbladder demonstrates a normal sonographic appearance. No biliary dilatation is seen. Enlarged, fatty liver. Dictated by: John Montaño M.D. on 08/25/2022 at 9:27 Approved by: John Montaño M.D. on 08/25/2022 at 9:28
== END 2022-08-25 10:51 | disposition home or self-care (01) ==
PROVIDERS: Emergency Provider Emergency Medicine; Family Provider Family Medicine; PCP Family Medicine
DX: R11.2 Nausea with vomiting, unspecified (principal); R10.13 Epigastric pain; R19.7 Diarrhea, unspecified
CPT/HCPCS: 36415; 76705; 80053; 81001; 81003; 81025; 83690; 83735; 85025; 96374; 96375; 99284; C9113; J2405; J2765

== ENCOUNTER 2022-10-31 11:43 | Emergency (ER) | payer OTHER, MEDICAID, SELFPAY ==
[2022-10-31 11:51] VITALS: BP 142/93; PULSE 90; RESP 20; TEMP 36.9; O2SAT 97; BMI 38.7
--- NOTE | 2022-10-31 11:53 | ED.URI ---
HPI - URI/Sore Throat <María Bishop, [facility] - Last Filed: 10/31/22 13:21> General Chief Complaint: Upper Respiratory Symptoms Stated Complaint: Thinks [place], chills, headache, throat pain Time Seen by Provider: 10/31/22 11:53 History of Present Illness HPI Narrative: This is a 27-year-old female who presents to the emergency department with 1 week of upper respiratory symptoms food nasal congestion, cough, headache, sore throat, ear pain, and states that her daughter had mono 2 weeks ago and she is concerned that she might. She endorses having a dull headache, denies dysuria, urinary frequency or urgency. States that she does not take medications well and vomits if she takes pills and so she has not tried to take, denies any nausea vomiting related to her illness but states that she had chills yesterday concerning for fever. States that she has a history of asthma and has been using her albuterol inhaler. Related Data Previous Rx's Medication Instructions Recorded blood sugar diagnostic (OneTouch #50 ea 10/18/18 Ultra Blue Test Strip) Glucose: Home Monitor #1 ea 08/17/19 blood sugar test strips #100 ea 08/17/19 lancets #100 ea 08/17/19 vitamins no.119-iron 1 tab PO DAILY #100 tabs 04/15/20 fumarate 29 mg-folic acid 1 mg tablet hydrocortisone 2.5 % topical cream 1 applic IA BID-QID PRN 10/02/20 with perineal applicator hemorrhoids #30 grams (Anusol-HC) nebulizer and all supplies #1 ea 11/13/20 levonorgestrel-ethinyl estradiol 1 tab PO DAILY #84 tabs 03/31/21 0.1 mg-20 mcg tablet (Aviane) fluticasone propionate 110 1 puff inhalation BID #12 grams 03/26/22 mcg/actuation HFA aerosol inhaler (Flovent HFA) ipratropium 0.5 mg-albuterol 3 mg 3 ml inhalation Q6-8H PRN 03/26/22 (2.5 mg base)/3 mL nebulization shortness of breath or wheezing soln #90 mL metformin 500 mg tablet 500 mg PO BID #180 tabs 04/07/22 bupropion HCl 150 mg tablet,12 hr 150 mg PO BID #180 ea 05/26/22 sustained-release ondansetron 4 mg disintegrating 4 mg PO TID-QID PRN nausea and 08/25/22 tablet vomiting #10 tabs pantoprazole 40 mg tablet,delayed 40 mg PO DAILY #30 tabs 08/25/22 release (Protonix) promethazine 25 mg rectal 25 mg IA Q4-6H PRN nausea and 08/25/22 suppository vomiting #12 ea albuterol sulfate 90 mcg/actuation 2 puff inhalation .q4-6 hours PRN 10/22/22 aerosol inhaler (ProAir HFA) shortness of breath or wheezing #8.5 grams Allergies Allergy/AdvReac Type Severity Reaction Status Date / Time venlafaxine AdvReac Intermediate [place], Verified 10/31/22 11:55 increased suicidal ideation Review of Systems <MAYA Diaz - Last Filed: 10/31/22 13:21> Review of Systems ROS Unobtainable: All systems reviewed & are unremarkable except as noted in HPI and below Patient History <MAYA Diaz - Last Filed: 10/31/22 13:21> Medical History Acute bronchitis (~03/2020) Acute pain of right shoulder (08/29/17) Acute right-sided low back pain without sciatica Asthma (~2000) Cervical paraspinal muscle spasm (~2016) Chronic thoracic back pain Dysmenorrhea (~2006) Folliculitis Frequent loose stools (~1993) Gastritis (~2018) Hemorrhoids (~2014) History of hyperglycemia Laryngitis, chronic Lumbar region somatic dysfunction PCOS (polycystic ovarian syndrome) (~2001) Pelvic somatic dysfunction Rib pain on right side Sacral region somatic dysfunction Shoulder pain, right Skin lesion of right arm (~2013) Thoracic region somatic dysfunction Surgical History History of third molar tooth extraction History of tonsillectomy and adenoidectomy Status post tonsillectomy and adenoidectomy Family History Mother Hyperlipidemia Diabetes mellitus Father No problems noted. Grandmother Heart disease Emphysema lung Smoker Grandfather Family estrangement Grandmother No problems noted. Grandfather No problems noted. Social History household members: significant other and children Smoking Status: Never smoker alcohol intake: current Smoking Status: Never smoker alcohol intake frequency: holidays/special occasions only Substance Use Type: marijuana Exam <MAYA Diaz - Last Filed: 10/31/22 13:21> Narrative Exam Narrative: Reviewed vitals signs and nursing notes. General: Pleasant, sitting upright, in no acute distress, well groomed, afebrile HEENT: symmetrical facial expressions, moist mucous membranes, neck is supple, nasal congestion, posterior pharynx without erythema, bilateral TMs are bulging, clear fluid behind, normal landmarks CV: regular rate and rhythm, warm extremities Respiratory: normal work of breathing, without tachypnea or hypoxia. No wheezing, no increased work of breathing, good aeration MSK: moves all extremities, no weakness, normal tone, ambulatory without deficit Skin: brisk capillary refill, without rash or wound Neuro: clear speech and normal cognition, A&O x3, GCS 15, no focal motor or sensation deficits Initial Vital Signs Initial Vital Signs: Vital Signs Temperature 98.5 F 10/31/22 11:51 Pulse Rate 90 10/31/22 11:51 Respiratory Rate 20 10/31/22 11:51 Blood Pressure 142/93 H 10/31/22 11:51 Pulse Oximetry 97 10/31/22 11:51 Oxygen Delivery Method Room Air 10/31/22 11:51 <Jessica Figueredo DO - Last Filed: 10/31/22 14:13> Initial Vital Signs Initial Vital Signs: Vital Signs Temperature 98.5 F 10/31/22 11:51 Pulse Rate 90 10/31/22 11:51 Respiratory Rate 20 10/31/22 11:51 Blood Pressure 142/93 H 10/31/22 11:51 Pulse Oximetry 97 10/31/22 11:51 Oxygen Delivery Method Room Air 10/31/22 11:51 Course <MAYA Diaz - Last Filed: 10/31/22 13:21> Orders Ordered: ED Orders 10/31/22 12:00 Covid-19 + FLU A/B + RSV - PCR Stat 10/31/22 12:30 HCG Quantitative /Beta subunit Stat Monotest Stat 10/31/22 12:48 Urine Microscopic Stat Discontinued Medications Dexamethasone (Dexamethasone 10 Mg/Ml Vial) 10 mg IV NOW ONE Stop: 10/31/22 13:18 Last Admin: 10/31/22 13:31 Dose: 10 mg Documented By: NR Sodium Chloride (Normal Saline 0.9%) 1,000 mls @ 1,000 mls/hr IV BOLUS ONE Stop: 10/31/22 12:52 Last Infusion: 10/31/22 14:05 Dose: 0 mls/hr Documented By: Admin: 10/31/22 12:50 Dose: 1,000 mls/hr Documented By: SANDRA Ketorolac Tromethamine (Ketorolac 30 Mg/Ml Vial) 15 mg IV NOW ONE Stop: 10/31/22 11:54 Last Admin: 10/31/22 12:50 Dose: 15 mg Documented By: CTS Loratadine (Loratadine 10 Mg Tablet) 10 mg PO NOW ONE Stop: 10/31/22 11:54 Last Admin: 10/31/22 12:50 Dose: 10 mg Documented By: CTS Ondansetron HCl (Ondansetron 4 Mg/2 Ml Inj) 4 mg IV NOW ONE Stop: 10/31/22 11:54 Last Admin: 10/31/22 12:50 Dose: 4 mg Documented By: CTS Vital Signs Vital signs: Vital Signs - 8 hr 10/31/22 11:51 10/31/22 13:58 10/31/22 13:59 Temperature 98.5 F Pulse Rate 90 71 68 Respiratory Rate 20 Blood Pressure 142/93 H Pulse Oximetry 97 96 96 Oxygen Delivery Method Room Air 10/31/22 13:59 10/31/22 14:00 Temperature Pulse Rate 66 Respiratory Rate Blood Pressure 147/73 H Pulse Oximetry 97 Oxygen Delivery Method <Jessica Figueredo DO - Last Filed: 10/31/22 14:13> Orders Ordered: ED Orders 10/31/22 12:00 Covid-19 + FLU A/B + RSV - PCR Stat 10/31/22 12:30 HCG Quantitative /Beta subunit Stat Monotest Stat 10/31/22 12:48 Urine Microscopic Stat Discontinued Medications Dexamethasone (Dexamethasone 10 Mg/Ml Vial) 10 mg IV NOW ONE Stop: 10/31/22 13:18 Last Admin: 10/31/22 13:31 Dose: 10 mg Documented By: NR Sodium Chloride (Normal Saline 0.9%) 1,000 mls @ 1,000 mls/hr IV BOLUS ONE Stop: 10/31/22 12:52 Last Infusion: 10/31/22 14:05 Dose: 0 mls/hr Documented By: Admin: 10/31/22 12:50 Dose: 1,000 mls/hr Documented By: SANDRA Ketorolac Tromethamine (Ketorolac 30 Mg/Ml Vial) 15 mg IV NOW ONE Stop: 10/31/22 11:54 Last Admin: 10/31/22 12:50 Dose: 15 mg Documented By: CTS Loratadine (Loratadine 10 Mg Tablet) 10 mg PO NOW ONE Stop: 10/31/22 11:54 Last Admin: 10/31/22 12:50 Dose: 10 mg Documented By: SANDRA Ondansetron HCl (Ondansetron 4 Mg/2 Ml Inj) 4 mg IV NOW ONE Stop: 10/31/22 11:54 Last Admin: 10/31/22 12:50 Dose: 4 mg Documented By: CTS Vital Signs Vital signs: Vital Signs - 8 hr 10/31/22 11:51 10/31/22 13:58 10/31/22 13:59 Temperature 98.5 F Pulse Rate 90 71 68 Respiratory Rate 20 Blood Pressure 142/93 H Pulse Oximetry 97 96 96 Oxygen Delivery Method Room Air 10/31/22 13:59 10/31/22 14:00 Temperature Pulse Rate 66 Respiratory Rate Blood Pressure 147/73 H Pulse Oximetry 97 Oxygen Delivery Method MDM - URI/Sore Throat <MAYA Diaz - Last Filed: 10/31/22 13:21> Lab Data Labs: Lab Results 10/31/22 10/31/22 10/31/22 Range/Units 12:00 12:30 12:30 HCG, Quant < 2.4 mIU/mL Urine RBC (0-5/HPF) Urine WBC (0-5/HPF) Ur Squamous Epith Cells (0-5/HPF) Urine Bacteria (None) Ur Culture Indicated? SARS-CoV-2 (PCR) Negative (Negative) Monoscreen Negative (Negative) Influenza A (RT-PCR) Flu a negative (NEGATIVE) Influenza B (RT-PCR) Flu b negative (NEGATIVE) RSV (PCR) Negative (Negative) 10/31/22 Range/Units 12:48 HCG, Quant mIU/mL Urine RBC 1-5/hpf (0-5/HPF) Urine WBC 0-1/hpf (0-5/HPF) Ur Squamous Epith Cells 0-1 /hpf (0-5/HPF) Urine Bacteria None seen (None) Ur Culture Indicated? Cult not indicated SARS-CoV-2 (PCR) (Negative) Monoscreen (Negative) Influenza A (RT-PCR) (NEGATIVE) Influenza B (RT-PCR) (NEGATIVE) RSV (PCR) (Negative) Point of Care Testing Test Results Negative Urine Dip Bedside Urine Glucose Negative Bedside Urine Bilirubin - Negative Bedside Urine Ketone - Negative Urine Specific [place] 1.015 Bedside Urine Occult Blood ++ Bedside Urine pH 6.0 Bedside Urine Protein - Negative Bedside Urine Urobilinogen - Negative Bedside Urine Nitrite - Negative Bedside Urine Leukocytes - Negative Esterase MDM Narrative Medical decision making narrative: Chief Complaint: Upper respiratory illness Primary historian: Patient Multiple etiologies for patient's complaint considered including, but not limited to: Acute viral illness, pneumonia, asthma/reactive airway exacerbation, allergic reaction, acute otitis media, tonsillitis/pharyngitis, bronchitis, sinusitis, postnasal drip, pertussis, pneumothorax, pneumonitis Respiratory PCR: Monospot is negative. Patient is nontoxic appearing and is not wheezing, without increased work of breathing, hypoxia tachypnea. Her symptoms were treated with Toradol, Claritin, Zofran, 10 mg of Decadron IV for migraine headache and 1 L of normal saline. Patient reported feeling better afterwards. Respiratory panel is negative for all tested viruses including COVID, influenza a and B, RSV, Monospot was negative, urine was negative. Patient is tolerating p.o. Recommended rest, hydration, tylenol and NSAIDS for fever and/or pain. Return to ED for worsening symptoms such as SOB, chest pain, inability to take adequate oral fluids, fever, or productive cough. Avoidance of Antibiotic Treatment for Acute Bronchitis/Bronchiolitis [x] The patient has acute bronchitis/bronchiolitis and antibiotics were not prescribed or dispensed today. [S[employer]IS[employer]ES [employer]CE] #65: Appropriate Treatment for Patients with URI [x] The patient was diagnosed with upper respiratory infection and was not prescribed or dispensed an antibiotic. 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 Social considerations that may affect disposition: none Questions are addressed and there is agreement with the plan and for follow-up. I consulted with the ED attending physician Dr. Figueredo as needed for higher level of care considerations and they were available for discussion and recommendations regarding plan of care and diagnostic testing. Patient is appropriate for outpatient management. <Jessica Thierno Figueredo, DO - Last Filed: 10/31/22 14:13> Lab Data Labs: Lab Results 10/31/22 10/31/22 10/31/22 Range/Units 12:00 12:30 12:30 HCG, Quant < 2.4 mIU/mL Urine RBC (0-5/HPF) Urine WBC (0-5/HPF) Ur Squamous Epith Cells (0-5/HPF) Urine Bacteria (None) Ur Culture Indicated? SARS-CoV-2 (PCR) Negative (Negative) Monoscreen Negative (Negative) Influenza A (RT-PCR) Flu a negative (NEGATIVE) Influenza B (RT-PCR) Flu b negative (NEGATIVE) RSV (PCR) Negative (Negative) 10/31/22 Range/Units 12:48 HCG, Quant mIU/mL Urine RBC 1-5/hpf (0-5/HPF) Urine WBC 0-1/hpf (0-5/HPF) Ur Squamous Epith Cells 0-1 /hpf (0-5/HPF) Urine Bacteria None seen (None) Ur Culture Indicated? Cult not indicated SARS-CoV-2 (PCR) (Negative) Monoscreen (Negative) Influenza A (RT-PCR) (NEGATIVE) Influenza B (RT-PCR) (NEGATIVE) RSV (PCR) (Negative) Point of Care Testing Test Results Negative Urine Dip Bedside Urine Glucose Negative Bedside Urine Bilirubin - Negative Bedside Urine Ketone - Negative Urine Specific [place] 1.015 Bedside Urine Occult Blood ++ Bedside Urine pH 6.0 Bedside Urine Protein - Negative Bedside Urine Urobilinogen - Negative Bedside Urine Nitrite - Negative Bedside Urine Leukocytes - Negative Esterase Discharge Plan Departure Patient Disposition: Home Clinical Impression: Upper respiratory infection, viral Instructions: DI for Acute Bronchitis Activity Restrictions/Additional Instructions: *You have been diagnosed with an upper respiratory viral infection which is likely cause bronchitis for you. Due to your history of asthma, given you a steroid today to help you with shortness of breath and your cough. This will likely decrease some inflammation in your upper respiratory system. Please take Tylenol and ibuprofen as needed for aches, pain and fever, stay hydrated with plenty to drink, use your albuterol inhaler as needed for wheezing or shortness of breath. Your symptoms should start to get better in a few days, your COVID, RSV, mono test and influenza tests were all negative. Please start taking Zyrtec 10 mg nightly for congestion and ear pain, generic form is cetirizine. Available [id number]. *What to do: *Please continue to take your regular medications as directed. [ ] New medication prescriptions sent to your pharmacy: [ ] [ ] New medication written as a paper prescription [x ] No new medications given *Please call and schedule follow up with your primary care provider in 2-3 days, at least for an update. Let them know you were seen in the Emergency Department for the above problem. We will electronically transmit a record of today's note if your PCP or specialist is in our system. *If you do not have a primary care provider please contact [phone] to establish care with one of the [facility] primary care providers. *Return to the Emergency Department for worsening symptoms, inability to keep liquids down, fever greater than 101F, chills, or other concerning symptom. Prescriptions: No Action (DME) OneTouch Ultra Blue Test Strip strip See Dose Instructions .ROUTE .MEDSUPPLY Qty: 50 11RF Dose Instruction: As directed Rx Instructions: check blood sugar once a day (DME) Glucose: Home Monitor 0 .Route .MEDSUPPLY Qty: 1 0RF Rx Instructions: Use to test blood sugars at home to test once daily. (DME) blood sugar test strips Qty: 100 6RF Rx Instructions: Use with glucometer to test blood sugars once a day. (DME) lancets Qty: 100 6RF Rx Instructions: Use with glucometer to test blood sugars once a day. (DME) nebulizer and all supplies See Rx Instructions .Route .MEDSUPPLY Qty: 1 0RF Rx Instructions: As directed Please fax order to [facility] or [facility] to proceed with neb supplies request, thank you. metformin 500 mg tablet 500 mg PO BID Qty: 180 3RF bupropion HCl 150 mg tablet sustained-release 12 hr 150 mg PO BID Qty: 180 1RF albuterol sulfate [ProAir HFA] 90 mcg/actuation HFA aerosol inhaler 2 puff INHALATION .q4-6 hours PRN (Reason: shortness of breath or wheezing) Qty: 8.5 3RF PNV 119-iron fum-folic acid 29 mg iron- 1 mg tablet 1 tab PO DAILY Qty: 100 3RF hydrocortisone [Anusol-HC] 2.5 % cream with perineal applicator 1 applic IA BID-QID PRN (Reason: hemorrhoids) Qty: 30 2RF levonorgestrel-ethinyl estrad [Aviane] 0.1-20 mg-mcg tablet 1 tab PO DAILY Qty: 84 4RF ipratropium-albuterol 0.5 mg-3 mg(2.5 mg base)/3 mL solution for nebulization 3 ml inhalation Q6-8H PRN (Reason: shortness of breath or wheezing) Qty: 90 0RF Flovent HFA 110 mcg/actuation HFA aerosol inhaler 1 puff inhalation BID Qty: 12 3RF Rx Instructions: administer with spacer. Baxter teeth after use pantoprazole [Protonix] 40 mg tablet,delayed release (DR/EC) 40 mg PO DAILY Qty: 30 0RF ondansetron 4 mg tablet,disintegrating 4 mg PO TID-QID PRN (Reason: nausea and vomiting) Qty: 10 0RF promethazine 25 mg suppository 25 mg IA Q4-6H PRN (Reason: nausea and vomiting) Qty: 12 0RF Referrals: Malu Nieto DO [Primary Care Provider] - Stand Alone Forms: Patient Portal/API <Jessica Figueredo DO - Last Filed: 10/31/22 14:13> Cosign ED Attending Cos[place]ishaature Attestation: I was immediately available in the department for consultation. Documentation has been reviewed.
--- NOTE | 2022-10-31 12:41 | PC.NURSE ---
meds given late due to IV guided US needed for patient
[2022-10-31] MEDS: KETOROLAC 30 MG/ML VIAL 15 MG IV (12:50)
[2022-10-31] MEDS: ONDANSETRON 4 MG/2 ML INJ IV (12:50)
[2022-10-31] MEDS: LORATADINE 10 MG TABLET PO (12:50)
[2022-10-31] MEDS: SODIUM CHLORIDE 0.9% 1,000 ML 1000 ML IV (12:50)
[2022-10-31 12:55] LABS: Monotest Negative (Negative)
[2022-10-31 13:08] LABS: Influenza A - CEPHEID Flu A NEGATIVE (NEGATIVE); Influenza B - CEPHEID Flu B NEGATIVE (NEGATIVE); Respiratory Syncytial Virus Negative (Negative)
[2022-10-31 13:13] LABS: COVID-19 CEPHEID 4-PLEX PCR Negative (Negative)
[2022-10-31 13:14] LABS: HCG Quantitative /Beta subunit < 2.4 mIU/mL
[2022-10-31] MEDS: DEXAMETHASONE 10 MG/ML VIAL IV (13:31)
[2022-10-31 13:47] LABS: Bacteria Urine None Seen; WBC Urine 0-1/HPF (0-5/HPF)
[2022-10-31 13:48] LABS: Culture Indicated Urine Cult Not Indicated; RBC Urine 1-5/HPF (0-5/HPF); Squamous Epithelial Cell Urine 0-1 /HPF (0-5/HPF)
[2022-10-31 13:58] VITALS: PULSE 71; O2SAT 96
[2022-10-31 13:59] VITALS: BP 147/73; PULSE 68; O2SAT 96
[2022-10-31 14:00] VITALS: PULSE 66; O2SAT 97
== END 2022-10-31 14:04 | disposition home or self-care (01) ==
PROVIDERS: Emergency Provider Nurse Practitioner Critical Care Medicine; Family Provider Family Medicine; PCP Family Medicine
DX: J06.9 Acute upper respiratory infection, unspecified (principal); Z20.822 Contact with and (suspected) exposure to COVID-19
CPT/HCPCS: 0241U; 36415; 81003; 81015; 81025; 84702; 86318; 96361; 96374; 96375; 99284; J1100; J1885; J2405

== ENCOUNTER 2022-11-02 22:36 | Emergency (ER) | payer OTHER, MEDICAID, SELFPAY ==
[2022-11-02 23:01] VITALS: BP 122/75; PULSE 100; RESP 20; TEMP 36.9; O2SAT 97; BMI 39.4
--- NOTE | 2022-11-02 23:12 | DI.RAD.S_ITS ---
PROCEDURE: XR CHEST 1V INDICATIONS: Shortness of breath TECHNIQUE: One view of the chest was acquired. COMPARISON: [facility], CR, XR CHEST 1V, 10/31/2020, 21:58. FINDINGS: Surgical changes and devices: None. Lungs and pleura: There are new patchy airspace opacities within the right lung base consistent with consolidation. No pleural effusions or pneumothorax. Mediastinum: Mediastinal contours appear normal. Heart size is normal. Bones and chest wall: No suspicious bony lesions. Overlying soft tissues appear unremarkable. IMPRESSION: 1. New right basilar consolidation is nonspecific but suggestive of pneumonia. Dictated by: Brandon Whitfield M.D. on 11/03/2022 at 1:10 Approved by: Brandon Whitfield M.D. on 11/03/2022 at 1:11
[2022-11-02] MEDS: ALBUTEROL/IPRATROPIUM 3 ML AMPUL INH (23:33)
--- NOTE | 2022-11-03 00:05 | ED.GENADULT ---
HPI - General Adult General Chief complaint: Shortness of Breath/Dyspnea Stated complaint: bronchitis, but feels worse. Head fuzzy/sweaty Time Seen by Provider: 11/02/22 23:29 Source: patient Mode of arrival: Ambulatory History of Present Illness HPI narrative: Patient is a 27-year-old female who was seen here in the emergency department a couple days ago and was diagnosed with acute bronchitis. Was sent home on an albuterol inhaler. No antibiotics were administered. Since that time she feels like things have gotten worse. She states that she is feeling sweaty. Feels like her head is fuzzy. Is coughing. Is having shortness of breath. No vomiting. No skin rashes. Related Data Previous Rx's Medication Instructions Recorded blood sugar diagnostic (OneTouch #50 ea 10/18/18 Ultra Blue Test Strip) Glucose: Home Monitor #1 ea 08/17/19 blood sugar test strips #100 ea 08/17/19 lancets #100 ea 08/17/19 vitamins no.119-iron 1 tab PO DAILY #100 tabs 04/15/20 fumarate 29 mg-folic acid 1 mg tablet hydrocortisone 2.5 % topical cream 1 applic ID BID-QID PRN 10/02/20 with perineal applicator hemorrhoids #30 grams (Anusol-HC) nebulizer and all supplies #1 ea 11/13/20 levonorgestrel-ethinyl estradiol 1 tab PO DAILY #84 tabs 03/31/21 0.1 mg-20 mcg tablet (Aviane) fluticasone propionate 110 1 puff inhalation BID #12 grams 03/26/22 mcg/actuation HFA aerosol inhaler (Flovent HFA) ipratropium 0.5 mg-albuterol 3 mg 3 ml inhalation Q6-8H PRN 03/26/22 (2.5 mg base)/3 mL nebulization shortness of breath or wheezing soln #90 mL metformin 500 mg tablet 500 mg PO BID #180 tabs 04/07/22 bupropion HCl 150 mg tablet,12 hr 150 mg PO BID #180 ea 05/26/22 sustained-release ondansetron 4 mg disintegrating 4 mg PO TID-QID PRN nausea and 08/25/22 tablet vomiting #10 tabs pantoprazole 40 mg tablet,delayed 40 mg PO DAILY #30 tabs 08/25/22 release (Protonix) promethazine 25 mg rectal 25 mg ID Q4-6H PRN nausea and 08/25/22 suppository vomiting #12 ea albuterol sulfate 90 mcg/actuation 2 puff inhalation .q4-6 hours PRN 10/22/22 aerosol inhaler (ProAir HFA) shortness of breath or wheezing #8.5 grams azithromycin 250 mg tablet 250 mg PO DAILY 4 days #4 tabs 11/03/22 benzonatate 100 mg capsule 100 mg PO BID-TID PRN cough #14 11/03/22 caps Allergies Allergy/AdvReac Type Severity Reaction Status Date / Time venlafaxine AdvReac Intermediate [place], Verified 10/31/22 11:55 increased suicidal ideation Review of Systems Constitutional Constitutional: Reports system reviewed and no additional complaints, except as documented Cardiovascular Cardiovascular: Reports system reviewed and no additional complaints, except as documented Respiratory Respiratory: Reports system reviewed and no additional complaints, except as documented Gastrointestinal Gastrointestinal: Reports system reviewed and no additional complaints, except as documented Integumentary/Breasts Skin/Breast: Reports system reviewed and no additional complaints, except as documented Hematologic/Lymphatic On Anticoagulants: No Patient History Medical History Acute bronchitis (~03/2020) Acute pain of right shoulder (08/29/17) Acute right-sided low back pain without sciatica Asthma (~2000) Cervical paraspinal muscle spasm (~2016) Chronic thoracic back pain Dysmenorrhea (~2006) Folliculitis Frequent loose stools (~1993) Gastritis (~2018) Hemorrhoids (~2014) History of hyperglycemia Laryngitis, chronic Lumbar region somatic dysfunction PCOS (polycystic ovarian syndrome) (~2001) Pelvic somatic dysfunction Rib pain on right side Sacral region somatic dysfunction Shoulder pain, right Skin lesion of right arm (~2013) Thoracic region somatic dysfunction Surgical History History of third molar tooth extraction History of tonsillectomy and adenoidectomy Status post tonsillectomy and adenoidectomy Family History Mother Hyperlipidemia Diabetes mellitus Father No problems noted. Grandmother Heart disease Emphysema lung Smoker Grandfather Family estrangement Grandmother No problems noted. Grandfather No problems noted. Social History household members: significant other and children Smoking Status: Never smoker alcohol intake: current Smoking Status: Never smoker alcohol intake frequency: holidays/special occasions only Substance Use Type: marijuana Exam Initial Vital Signs Initial Vital Signs: Vital Signs Temperature 98.5 F 11/02/22 23:01 Pulse Rate 100 H 11/02/22 23:01 Respiratory Rate 20 11/02/22 23:01 Blood Pressure 122/75 11/02/22 23:01 Pulse Oximetry 97 11/02/22 23:01 Oxygen Delivery Method Room Air 11/02/22 23:01 Const General: cooperative and No ill appearing HENMT Head: normal to inspection and normocephalic Resp Effort & Inspection: not labored and tachypneic Auscultation: rhonchi and wheezes Cardio Rate: regular rate Rhythm: regular rhythm Skin General: no rashes or lesions noted Neuro General: patient alert, patient awake and moves all extremities Extrem General: normal to inspection and capillary refill normal Course Orders Ordered: ED Orders 11/02/22 23:12 XR chest 1V Stat Complete Blood Count AUTO DIFF Stat Comprehensive Metabolic Panel Stat EKG-12 Lead Stat Measure peak expiratory flow ONCE RT Consult Eval and Treat NOW Discontinued Medications Albuterol (Albuterol 2.5 Mg/3 Ml Neb (Adult)) 2.5 mg INH NOW ONE Stop: 11/03/22 00:07 Last Admin: 11/03/22 00:15 Dose: 2.5 mg Documented By: VIKKI Albuterol/Ipratropium (Albuterol/Ipratropium 3 Ml Ampul) 3 ml INH NOW ONE Stop: 11/02/22 23:30 Last Admin: 11/02/22 23:33 Dose: 3 ml Documented By: JADE Azithromycin (Azithromycin 250 Mg Tablet) 500 mg PO NOW ONE Stop: 11/03/22 00:07 Last Admin: 11/03/22 00:13 Dose: 500 mg Documented By: VIKKI Benzonatate (Benzonatate 100 Mg Capsule) 100 mg PO NOW ONE Stop: 11/03/22 00:00 Last Admin: 11/03/22 00:13 Dose: 100 mg Documented By: VIKKI Vital Signs Vital signs: Vital Signs - 8 hr 11/02/22 23:01 11/03/22 01:12 Temperature 98.5 F Pulse Rate 100 H 99 H Respiratory Rate 20 15 Blood Pressure 122/75 123/75 Pulse Oximetry 97 95 Oxygen Delivery Method Room Air Room Air Medical Decision Making Medical Records Medical records reviewed: Yes I reviewed the patient's medical records. Lab Data Lab results reviewed: Yes I reviewed the patient's lab results. 11/03/22 00:08 11/03/22 00:08 Labs: Lab Results 11/03/22 11/03/22 Range/Units 00:08 00:08 WBC 4.9 (4.5-11.0) X10^3/uL RBC 4.14 (4.0-5.2) X10^6/uL Hgb 11.3 L (12.0-16.0) g/dL Hct 34.5 L (36-46) % MCV 83.2 (80-100) fL MCH 27.3 (26-34) PG MCHC 32.8 (30-36) % RDW 14.2 (11.6-14.8) % Plt Count 174 (150-400) X10^3/uL Neut % (Auto) 51.5 (50-75) % Lymph % (Auto) 34.5 (25-40) % Barron % (Auto) 13.2 (3-14) % Eos % (Auto) 0.5 L (2-4) % Baso % (Auto) 0.3 (0-2) % Neut # (Auto) 2500 (3748-7757) /uL Lymph # (Auto) 1700 (0796-3335) /uL Barron # (Auto) 600 (0-900) /uL Eos # (Auto) 0 (0-450) /uL Baso # (Auto) 0 (0-100) /uL Sodium 136 L (137-145) mmol/L Potassium 3.3 L (3.4-5.1) mmol/L Chloride 102 (98-107) mmol/L Carbon Dioxide 25 (22-32) mmol/L BUN 11 (7-17) mg/dL Creatinine 0.74 (0.52-1.04) mg/dL Estimated GFR > 60 (>60) mL/min BUN/Creatinine Ratio 14.9 (6-22) Glucose 122 H (70-100) mg/dL Calcium 8.5 (8.4-10.2) mg/dL Total Bilirubin 0.5 (0.2-1.3) mg/dL AST 21 (14-36) IU/L ALT 12 (<35) IU/L Alkaline Phosphatase 86 (38-126) U/L Troponin I Cancelled NT-Pro-B Natriuret Pep Cancelled Total Protein 8.8 H (6.3-8.2) g/dL Albumin 4.0 (3.5-5.0) g/dL Globulin 4.8 H (1.7-4.1) g/dL Albumin/Globulin Ratio 0.8 L (1.0-2.8) Imaging Data Chest x-ray: Radiologist's Impression: PROCEDURE:? XR CHEST 1V ? INDICATIONS:? Shortness of breath ? TECHNIQUE:? One view of the chest was acquired.? ? COMPARISON:? [facility], CR, XR CHEST 1V, 10/31/2020, 21:58. ? FINDINGS:? ? Surgical changes and devices:? None.? ? Lungs and pleura:? There are new patchy airspace opacities within the right lung base consistent with consolidation.? No pleural effusions or pneumothorax.? ? Mediastinum:? Mediastinal contours appear normal.? Heart size is normal.? ? Bones and chest wall:? No suspicious bony lesions.? Overlying soft tissues appear unremarkable.? ? IMPRESSION:? ? 1. New right basilar consolidation is nonspecific but suggestive of pneumonia. ECG Data Attestation: I personally reviewed and interpreted this ECG as follows: Interpretation: Sinus rhythm Ventricular rate 94 Normal axis Normal QRS Normal QTC No ST T wave changes MDM Narrative Medical decision making narrative: Chest x-ray does show a new right-sided focal consolidation consistent with pneumonia. That does fit her clinical presentation as well. She reports improvement after 2 nebulizer treatments. She does have an albuterol inhaler with a spacer at home. Will send home with a prescription for antibiotics. She was given 1st dose here in the ER and was able to tolerate it without issue. A prescription for the remainder was sent to the pharmacy of her choice. She was given return precautions. She expressed understanding and agreement. Discharge Plan Departure Patient Disposition: Home Clinical Impression: Pneumonia Instructions: DI for Pneumonia -- Adult Activity Restrictions/Additional Instructions: Take the antibiotics as directed. Use the albuterol inhaler as needed and the same with the cough medication. Return to the emergency department for new or worsening symptoms. Prescriptions: New azithromycin 250 mg tablet 250 mg PO DAILY 4 Days Qty: 4 0RF Rx Instructions: start on day 2 of therapy benzonatate 100 mg capsule 100 mg PO BID-TID PRN (Reason: cough) Qty: 14 0RF No Action (DME) OneTouch Ultra Blue Test Strip strip See Dose Instructions .ROUTE .MEDSUPPLY Qty: 50 11RF Dose Instruction: As directed Rx Instructions: check blood sugar once a day (DME) Glucose: Home Monitor 0 .Route .MEDSUPPLY Qty: 1 0RF Rx Instructions: Use to test blood sugars at home to test once daily. (DME) blood sugar test strips Qty: 100 6RF Rx Instructions: Use with glucometer to test blood sugars once a day. (DME) lancets Qty: 100 6RF Rx Instructions: Use with glucometer to test blood sugars once a day. (DME) nebulizer and all supplies See Rx Instructions .Route .MEDSUPPLY Qty: 1 0RF Rx Instructions: As directed Please fax order to [facility] or Brian pineda to proceed with neb supplies request, thank you. metformin 500 mg tablet 500 mg PO BID Qty: 180 3RF bupropion HCl 150 mg tablet sustained-release 12 hr 150 mg PO BID Qty: 180 1RF albuterol sulfate [ProAir HFA] 90 mcg/actuation HFA aerosol inhaler 2 puff INHALATION .q4-6 hours PRN (Reason: shortness of breath or wheezing) Qty: 8.5 3RF PNV 119-iron fum-folic acid 29 mg iron- 1 mg tablet 1 tab PO DAILY Qty: 100 3RF hydrocortisone [Anusol-HC] 2.5 % cream with perineal applicator 1 applic ID BID-QID PRN (Reason: hemorrhoids) Qty: 30 2RF levonorgestrel-ethinyl estrad [Aviane] 0.1-20 mg-mcg tablet 1 tab PO DAILY Qty: 84 4RF ipratropium-albuterol 0.5 mg-3 mg(2.5 mg base)/3 mL solution for nebulization 3 ml inhalation Q6-8H PRN (Reason: shortness of breath or wheezing) Qty: 90 0RF Flovent HFA 110 mcg/actuation HFA aerosol inhaler 1 puff inhalation BID Qty: 12 3RF Rx Instructions: administer with spacer. [place] teeth after use pantoprazole [Protonix] 40 mg tablet,delayed release (DR/EC) 40 mg PO DAILY Qty: 30 0RF ondansetron 4 mg tablet,disintegrating 4 mg PO TID-QID PRN (Reason: nausea and vomiting) Qty: 10 0RF promethazine 25 mg suppository 25 mg ID Q4-6H PRN (Reason: nausea and vomiting) Qty: 12 0RF Referrals: Malu Nieto DO [Primary Care Provider] - Stand Alone Forms: Patient Portal/API
[2022-11-03] MEDS: AZITHROMYCIN 250 MG TABLET 500 MG PO (00:13)
[2022-11-03] MEDS: BENZONATATE 100 MG CAPSULE PO (00:13)
[2022-11-03] MEDS: ALBUTEROL 2.5 MG/3 ML NEB (ADULT) INH (00:15)
[2022-11-03 00:20] LABS: Add Manual Diff / Slide Review NO; Basophils Absolute Auto 0 /uL (0-100); Basophils Percent Auto 0.3 % (0-2); Eosinophils Absolute Auto 0 /uL (0-450); Eosinophils Percent Auto 0.5 % (2-4); Hematocrit 34.5 % (36-46); Hemoglobin 11.3 g/dL (12.0-16.0); Lymphocytes Absolute Auto 1700 /uL (1100-4500); Lymphocytes Percent Auto 34.5 % (25-40); Mean Corpuscular HGB Conc 32.8 % (30-36); Mean Corpuscular Hemoglobin 27.3 PG (26-34); Mean Corpuscular Volume 83.2 fL (80-100); Monocytes Absolute Auto 600 /uL (0-900); Monocytes Percent Auto 13.2 % (3-14); Neutrophils Absolute Auto 2500 /uL (1500-7000); Neutrophils Percent Auto 51.5 % (50-75); Platelet Count 174 X10^3/uL (150-400); Red Blood Cell Count 4.14 X10^6/uL (4.0-5.2); Red Cell Distribution Width 14.2 % (11.6-14.8); White Blood Cell Count 4.9 X10^3/uL (4.5-11.0)
[2022-11-03 00:25] LABS: Alanine Aminotransferase 12 IU/L (<35); Albumin Globulin Ratio 0.8 (1.0-2.8); Alkaline Phosphatase 86 U/L (38-126); Aspartate Aminotransferase 21 IU/L (14-36); BUN Creatinine Ratio 14.9 (6-22); Bilirubin Total 0.5 mg/dL (0.2-1.3); Blood Urea Nitrogen 11 mg/dL (7-17); Calcium 8.5 mg/dL (8.4-10.2); Carbon Dioxide 25 mmol/L (22-32); Chloride 102 mmol/L (98-107); Estimated Glomerular Filt Rate > 60 mL/min (>60); Globulin 4.8 g/dL (1.7-4.1); Glucose 122 mg/dL (70-100); HEMOLYSIS < 15 (0-50); Potassium 3.3 mmol/L (3.4-5.1); Sodium 136 mmol/L (137-145); Total Protein 8.8 g/dL (6.3-8.2)
[2022-11-03 01:12] VITALS: BP 123/75; PULSE 99; RESP 15; O2SAT 95
== END 2022-11-03 01:14 | disposition home or self-care (01) ==
PROVIDERS: Emergency Provider Emergency Medicine; Family Provider Family Medicine; PCP Family Medicine
DX: J18.9 Pneumonia, unspecified organism (principal)
CPT/HCPCS: 36415; 71045; 80053; 85025; 93005; 99284; J7613

== ENCOUNTER → 2022-11-30 14:41 | Outpatient (CLI) | payer OTHER, MEDICAID, SELFPAY ==
[2022-11-30 18:04] LABS: BUN Creatinine Ratio 17.1 (6-22); Blood Urea Nitrogen 14 mg/dL (7-17); Calcium 9.3 mg/dL (8.4-10.2); Carbon Dioxide 29 mmol/L (22-32); Chloride 102 mmol/L (98-107); Estimated Glomerular Filt Rate > 60 mL/min (>60); Glucose 111 mg/dL (70-100); HEMOLYSIS < 15 (0-50); Sodium 138 mmol/L (137-145)
[2022-11-30 19:30] LABS: Urine N gonorrhoeae NOT DETECTED
[2022-11-30 19:31] LABS: Urine Chlamydia NOT DETECTED
[2022-12-01 06:05] LABS: Labcorp Hemoglobin (Hb) A1c 5.5 % (4.8-5.6)
== END ==
PROVIDERS: Family Provider Family Medicine; PCP Family Medicine; Referring Provider Family Medicine; Visit Provider Family Medicine
DX: E28.2 Polycystic ovarian syndrome (principal); E87.6 Hypokalemia; A64 Unspecified sexually transmitted disease
CPT/HCPCS: 36415; 80048; 83036; 87491; 87591

== ENCOUNTER → 2023-03-21 11:31 | Outpatient (CLI) | payer OTHER, MEDICAID, SELFPAY ==
[2023-03-22 14:13] LABS: Candida species Negative (Negative); Gardnerella vaginalis Positive (Negative); Trichomoas vaginalis Negative (Negative)
[2023-03-24 01:36] LABS: Chlamydia trachomatis Negative (Negative); Mycoplasma genitalium Negative (Negative); Neisseria gonorrhoeae Negative (Negative)
== END ==
PROVIDERS: Family Provider Family Medicine; PCP Family Medicine; Visit Provider Physician Assistant Medical
DX: N89.8 Other specified noninflammatory disorders of vagina (principal)
CPT/HCPCS: 87480; 87491; 87510; 87563; 87591; 87660

== ENCOUNTER → 2023-03-21 16:58 | Outpatient (CLI) | payer OTHER, MEDICAID, SELFPAY ==
[2023-03-21 19:55] LABS: Hepatitis B Surface Antigen NEGATIVE s/c (NEGATIVE)
[2023-03-21 20:00] LABS: HIV 1 & 2 Ab/Ag 4th Gen Combo NEGATIVE (NEGATIVE); Hep C Virus Ab w/Reflex Quant NEGATIVE s/c (NEGATIVE)
[2023-03-23 05:32] LABS: RPR Screen Non Reactive (Non Reactive)
== END ==
PROVIDERS: Family Provider Family Medicine; PCP Family Medicine; Referring Provider Physician Assistant Medical; Visit Provider Physician Assistant Medical
DX: Z11.3 Encounter for screening for infections with a predominantly sexual mode of transmission (principal)
CPT/HCPCS: 36415; 86592; 86803; 87340; 87389

== ENCOUNTER → 2023-04-19 11:17 | Outpatient (CLI) | payer OTHER, MEDICAID, SELFPAY ==
--- NOTE | 2023-04-19 12:01 | DI.RAD.S_ITS ---
PROCEDURE: XR CHEST 2V INDICATIONS: cough congestion x 4 days TECHNIQUE: 2 views of the chest were acquired. COMPARISON: [facility], CR, XR CHEST 1V, 11/02/2022, 23:14. [facility], CR, XR CHEST 1V, 10/31/2020, 21:58. FINDINGS: Surgical changes and devices: None. Lungs and pleura: Lungs are clear. No pleural effusions or pneumothorax. Mediastinum: Mediastinal contours are normal. Heart size is normal. Bones and chest wall: No suspicious bony abnormalities. Soft tissues appear unremarkable. IMPRESSION: No acute cardiopulmonary abnormality is seen. Dictated by: Kevin Del Toro M.D. on 04/19/2023 at 14:25 Approved by: Kevin Del Toro M.D. on 04/19/2023 at 14:25
[2023-04-19 12:18] LABS: Influenza A - CEPHEID Flu A NEGATIVE (NEGATIVE); Influenza B - CEPHEID Flu B NEGATIVE (NEGATIVE); Respiratory Syncytial Virus Negative (Negative)
[2023-04-19 12:45] LABS: COVID-19 CEPHEID 4-PLEX PCR Negative (Negative)
== END ==
PROVIDERS: Family Provider Family Medicine; PCP Family Medicine; Referring Provider Physician Assistant; Visit Provider Physician Assistant
DX: R05.1 Acute cough (principal); J06.9 Acute upper respiratory infection, unspecified; J45.909 Unspecified asthma, uncomplicated; J02.9 Acute pharyngitis, unspecified
CPT/HCPCS: 0241U; 71046; 87070; 87880

== ENCOUNTER → 2023-06-03 10:55 | Outpatient (CLI) | payer OTHER, MEDICAID, SELFPAY ==
[2023-06-03 12:55] LABS: Add Manual Diff / Slide Review NO; Basophils Absolute Auto 0 /uL (0-100); Basophils Percent Auto 0.3 % (0-2); Eosinophils Absolute Auto 200 /uL (0-450); Hematocrit 38.5 % (36-46); Hemoglobin 12.8 g/dL (12.0-16.0); Lymphocytes Absolute Auto 2100 /uL (1100-4500); Lymphocytes Percent Auto 30.8 % (25-40); Mean Corpuscular HGB Conc 33.4 % (30-36); Mean Corpuscular Hemoglobin 28.9 PG (26-34); Mean Corpuscular Volume 86.7 fL (80-100); Monocytes Absolute Auto 400 /uL (0-900); Monocytes Percent Auto 6.4 % (3-14); Neutrophils Absolute Auto 4000 /uL (1500-7000); Neutrophils Percent Auto 59.5 % (50-75); Platelet Count 196 X10^3/uL (150-400); Red Blood Cell Count 4.44 X10^6/uL (4.0-5.2); Red Cell Distribution Width 13.7 % (11.6-14.8); White Blood Cell Count 6.7 X10^3/uL (4.5-11.0)
[2023-06-03 13:03] LABS: Hemoglobin A1C% w Est Avg Glu 5.4 % (4.0-6.0)
[2023-06-03 13:18] LABS: HEMOLYSIS < 15 (0-50); Iron 81 ug/dL (37-170)
[2023-06-03 13:22] LABS: Alanine Aminotransferase 9 IU/L (<35); Albumin 4.2 g/dL (3.5-5.0); Albumin Globulin Ratio 1.2 (1.0-2.8); Alkaline Phosphatase 71 U/L (38-126); Aspartate Aminotransferase 22 IU/L (14-36); BUN Creatinine Ratio 15.5 (6-22); Bilirubin Total 0.7 mg/dL (0.2-1.3); Blood Urea Nitrogen 11 mg/dL (7-17); Calcium 9.9 mg/dL (8.4-10.2); Carbon Dioxide 25 mmol/L (22-32); Chloride 104 mmol/L (98-107); Estimated Glomerular Filt Rate > 60 mL/min (>60); Globulin 3.5 g/dL (1.7-4.1); Glucose 106 mg/dL (70-100); HEMOLYSIS < 15 (0-50); Potassium 4.4 mmol/L (3.4-5.1); Sodium 137 mmol/L (137-145); Total Protein 7.7 g/dL (6.3-8.2)
[2023-06-03 13:29] LABS: Percent Iron Saturation 22 % (15-50); Total Iron Binding Capacity 363 ug/dL (265-497); Transferrin 316 mg/dL (206-381)
[2023-06-03 13:55] LABS: Ferritin 18 ng/mL (6-137)
== END ==
PROVIDERS: Family Provider Family Medicine; PCP Family Medicine; Referring Provider Family Medicine; Visit Provider Family Medicine
DX: N76.0 Acute vaginitis (principal); N94.9 Unspecified condition associated with female genital organs and menstrual cycle; N89.8 Other specified noninflammatory disorders of vagina; N93.9 Abnormal uterine and vaginal bleeding, unspecified; D64.9 Anemia, unspecified; R73.9 Hyperglycemia, unspecified
CPT/HCPCS: 36415; 80053; 82728; 83036; 83540; 83550; 85025

== ENCOUNTER 2023-08-24 16:18 | Emergency (ER) | payer OTHER, MEDICAID, SELFPAY ==
[2023-08-24 16:24] VITALS: BP 127/83; PULSE 89; RESP 22; TEMP 36.5; O2SAT 95; BMI 40.8
[2023-08-24 17:37] LABS: Adenovirus Not Detected (Not Detect); B. parapertussis Not Detected (Not Detecte); Bordetella pertussis Not Detected (Not Detect); Chlamydophila pneumoniae Not Detected (Not Detect); Coronavirus 229E Not Detected (Not Detect); Coronavirus HKU1 Not Detected (Not Detect); Coronavirus NL 63 Not Detected (Not Detect); Coronavirus OC43 Not Detected (Not Detect); Human Metapneumovirus Not Detected (Not Detect); Human Rhinovirus/Enterovirus Not Detected (Not Detect); Influenza A Not Detected (Not Detect); Influenza B Not Detected (Not Detect); Mycoplasma pneumoniae Not Detected (Not Detect); Parainfluenza Virus 1 Not Detected (Not Detect); Parainfluenza Virus 2 Not Detected (Not Detect); Parainfluenza Virus 3 Not Detected (Not Detect); Parainfluenza Virus 4 Not Detected (Not Detect); Respiratory Syncytial Virus Not Detected (Not Detect); SARS- CoV-2 Not Detected (Not Detecte)
--- NOTE | 2023-08-24 17:49 | ED.URI ---
HPI - URI/Sore Throat <Valentina Mcneil PA-C - Last Filed: 08/25/23 19:49> General Chief Complaint: Upper Respiratory Symptoms Stated Complaint: SOB, Wheezing, Asthma Time Seen by Provider: 08/24/23 17:49 Source: patient Mode of arrival: Family Vehicle History of Present Illness HPI Narrative: 27-year-old female with a history of asthma and anxiety presents with concern for asthma exacerbation. Concern for propranolol reaction. Patient states she was prescribed propranolol by her mental health provider about 2-1/2 weeks ago due to anxiety she is never taken anxiety meds before. In the last few weeks within a few days of starting the propranolol she has noticed her asthma has been flaring up she has had to use her nebulizer up to 4 times a day and has been coughing a lot. This worsened this week and she realized something may be wrong and did independent research about this came into the emergency department as her symptoms worsened today and she has concern that her symptoms are still persisting even though she stopped taking the propranolol 4 days ago. She did see her primary care provider yesterday who advised her to stop the medication but did not change any treatments or do additional meds at that time. Patient states she feels it is hard to get a full breath into the base of her lungs and she has been having wheezing and coughing and feels the nebulizers are not helping as much as they usually would and she is having to use them more than usual. Last nebulizer was early this morning. She denies any other complaints or concerns. Related Data Previous Rx's Medication Instructions Recorded blood sugar diagnostic (OneTouch #50 ea 10/18/18 Ultra Blue Test Strip) Glucose: Home Monitor #1 ea 08/17/19 blood sugar test strips #100 ea 08/17/19 lancets #100 ea 08/17/19 hydrocortisone 2.5 % topical cream 1 applic NC BID-QID PRN 10/02/20 with perineal applicator hemorrhoids #30 grams (Anusol-HC) nebulizer and all supplies #1 ea 11/13/20 fluticasone propionate 110 1 puff inhalation BID #12 grams 03/26/22 mcg/actuation HFA aerosol inhaler (Flovent HFA) pantoprazole 40 mg tablet,delayed 40 mg PO DAILY #30 tabs 08/25/22 release (Protonix) albuterol sulfate 90 mcg/actuation 2 puff inhalation .q4-6 hours PRN 10/22/22 aerosol inhaler (ProAir HFA) shortness of breath or wheezing #8.5 grams fluticasone propionate 50 1 spray intranasal BID #16 grams 11/04/22 mcg/actuation nasal spray,suspension (Flonase Allergy Relief) levonorgestrel 21 mcg/24 hours (8 1 device intrauterine ONCE #1 ea 11/30/22 yrs) 52 mg intrauterine device (Mirena) metformin 500 mg tablet,extended 500 mg PO BID #60 tabs 11/30/22 release 24 hr progesterone micronized 200 mg 200 mg PO BEDTIME #60 caps 11/30/22 capsule (Prometrium) guaifenesin 1,200 mg tablet, 1,200 mg PO Q12H #30 tabs 04/19/23 extended release 12 hr boric acid vaginal suppositories 600 mg vaginal .nightly #1 kit 06/03/23 hydroxyzine HCl 25 mg tablet 25 mg PO TID PRN anxiety 15 days 08/24/23 #30 tabs prednisone 20 mg tablet 40 mg (2 x 20 mg) PO DAILY asthma 08/24/23 flare 5 days #10 tabs semaglutide (weight loss) 0.25 0.25 mg (0.5 mL) SUBCUT QWEEK #6 mL 08/24/23 mg/0.5 mL subcutaneous pen injector (Wegovy) Allergies Allergy/AdvReac Type Severity Reaction Status Date / Time venlafaxine AdvReac Intermediate [place], Verified 08/24/23 16:32 increased suicidal ideation Review of Systems <Valentina Mcneil PA-C - Last Filed: 08/25/23 19:49> Review of Systems Narrative: See HPI Patient History <Valentina Mcneil PA-C - Last Filed: 08/25/23 19:49> Medical History Folliculitis History of hyperglycemia Lumbar region somatic dysfunction Sacral region somatic dysfunction Pelvic somatic dysfunction Acute right-sided low back pain without sciatica Thoracic region somatic dysfunction Chronic thoracic back pain Rib pain on right side Laryngitis, chronic Frequent loose stools (~1993) Gastritis (~2018) Asthma (~2000) Acute bronchitis (~03/2020) PCOS (polycystic ovarian syndrome) (~2001) Skin lesion of right arm (~2013) Hemorrhoids (~2014) Shoulder pain, right Acute pain of right shoulder (08/29/17) Cervical paraspinal muscle spasm (~2016) Dysmenorrhea (~2006) Surgical History History of tonsillectomy and adenoidectomy Status post tonsillectomy and adenoidectomy History of third molar tooth extraction Family History Mother Hyperlipidemia Diabetes mellitus Father No problems noted. Grandmother Heart disease Emphysema lung Smoker Grandfather Family estrangement Grandmother No problems noted. Grandfather No problems noted. Social History household members: significant other and children Smoking Status: Never smoker alcohol intake: current Smoking Status: Never smoker alcohol intake frequency: holidays/special occasions only Substance Use Type: marijuana Exam <Valentina Mcneil PA-C - Last Filed: 08/25/23 19:49> Narrative Exam Narrative: GENERAL: [27] year old patient appears stated age. Overweight, in mild distress. HEAD: Atraumatic. Normocephalic. EYES: Pupils equal round and reactive. Extraocular motions intact. No scleral icterus. No injection or drainage. ENT: Nose without bleeding, purulent drainage. Throat without erythema, tonsillar hypertrophy or exudate. Airway patent. NECK: Trachea midline. Non tender CARDIOVASCULAR: Regular rate and rhythm without murmurs, gallops, or rubs. RESPIRATORY: Inspiratory and expiratory wheezing with some squeaking all greco, diminished in the bases. Breath sounds equal bilaterally. No wheezes, rales, or rhonchi. No increased work of breathing. EXTREMITIES: No edema or joint tenderness. NEURO: AOx3. SKIN: No rash or erythema of visible areas Initial Vital Signs Initial Vital Signs: Vital Signs Temperature 97.7 F 08/24/23 16:24 Pulse Rate 89 08/24/23 16:24 Respiratory Rate 22 08/24/23 16:24 Blood Pressure 127/83 08/24/23 16:24 Pulse Oximetry 95 08/24/23 16:24 Oxygen Delivery Method Room Air 08/24/23 16:24 <Jessica Mathias MD - Last Filed: 08/26/23 20:37> Initial Vital Signs Initial Vital Signs: Vital Signs Temperature 97.7 F 08/24/23 16:24 Pulse Rate 89 08/24/23 16:24 Respiratory Rate 22 08/24/23 16:24 Blood Pressure 127/83 08/24/23 16:24 Pulse Oximetry 95 08/24/23 16:24 Oxygen Delivery Method Room Air 08/24/23 16:24 Course <Valentina Mcneil PA-C - Last Filed: 08/25/23 19:49> Orders Ordered: Discontinued Medications Albuterol/Ipratropium (Albuterol/Ipratropium 3 Ml Ampul) 9 ml INH NOW ONE Stop: 08/24/23 18:27 Last Admin: 08/24/23 18:29 Dose: 9 ml Documented By: CARL Prednisone (Prednisone 20 Mg Tablet) 40 mg PO NOW ONE Stop: 08/24/23 19:09 Last Admin: 08/24/23 19:12 Dose: 40 mg Documented By: ERIC Vital Signs Vital signs: Vital Signs - 8 hr 08/24/23 16:24 Temperature 97.7 F Pulse Rate 89 Respiratory Rate 22 Blood Pressure 127/83 Pulse Oximetry 95 Oxygen Delivery Method Room Air <Jessica Mathias MD - Last Filed: 08/26/23 20:37> Orders Ordered: Discontinued Medications Albuterol/Ipratropium (Albuterol/Ipratropium 3 Ml Ampul) 9 ml INH NOW ONE Stop: 08/24/23 18:27 Last Admin: 08/24/23 18:29 Dose: 9 ml Documented By: CARL Prednisone (Prednisone 20 Mg Tablet) 40 mg PO NOW ONE Stop: 08/24/23 19:09 Last Admin: 08/24/23 19:12 Dose: 40 mg Documented By: NL Vital Signs Vital signs: Vital Signs - 8 hr 08/24/23 16:24 Temperature 97.7 F Pulse Rate 89 Respiratory Rate 22 Blood Pressure 127/83 Pulse Oximetry 95 Oxygen Delivery Method Room Air MDM - URI/Sore Throat <Valentina Mcneil PA-C - Last Filed: 08/25/23 19:49> Differential Diagnosis Differential diagnosis: Likely upper respiratory infection, viral infection, bronchitis and other (Adverse reaction to propranolol/beta-peace, asthma exacerbation) Lab Data Attestation: I reviewed the patient's lab results. Labs: Lab Results 08/24/23 Range/Units 16:48 Chlamy pneumoniae PCR Not detected (Not Detect) Adenovirus (PCR) Not detected (Not Detect) B.parapertussis DNA PCR Not detected (Not Detecte) Coronavirus OC43 (PCR) Not detected (Not Detect) Coronavirus HKU1 (PCR) Not detected (Not Detect) Coronavirus 229E (PCR) Not detected (Not Detect) SARS-CoV-2 (PCR) Not detected (Not Detecte) Coronavirus NL63 (PCR) Not detected (Not Detect) Human Metapneumovir PCR Not detected (Not Detect) Influenza Type A (PCR) Not detected (Not Detect) Influenza Type B (PCR) Not detected (Not Detect) M. pneumoniae (PCR) Not detected (Not Detect) Parainfluenza 1 (PCR) Not detected (Not Detect) Parainfluenza 2 (PCR) Not detected (Not Detect) Parainfluenza 3 (PCR) Not detected (Not Detect) Parainfluenza 4 (PCR) Not detected (Not Detect) RSV (PCR) Not detected (Not Detect) Entero/Rhino (PCR) Not detected (Not Detect) Imaging Data Chest x-ray: My Impression: Agree with Radiology interpretation Radiologist's Impression: [address] [address] XRay Report Signed Patient: Nina Liriano V MR#: [id number] : 1995 Acct:[id number] Age/Sex: 27 / F Date of Service: 08/24/23 Loc: ED Accession Number: [id number] Procedure: XR chest 2V Ordering Provider: Valentina Mcneil P.A-C PROCEDURE: XR CHEST 2V INDICATIONS: asthma/wheezing/cough x 17 d TECHNIQUE: 2 views of the chest were acquired. COMPARISON: [facility], , XR CHEST 2V, 04/19/2023, 13:04. FINDINGS: Surgical changes and devices: None. Lungs and pleura: Lungs are clear. No pleural effusions or pneumothorax. Mediastinum: Mediastinal contours are normal. Heart size is normal. Bones and chest wall: No suspicious bony abnormalities. Soft tissues appear unremarkable. IMPRESSION: No acute pulmonary process. Dictated by: Edwige Alcantara M.D. on 08/24/2023 at 18:36 Approved by: Edwige Alcantara M.D. on 08/24/2023 at 18:36 [facility] Narrative Medical decision making narrative: 27-year-old overweight female with history of asthma and anxiety presents with concern for persistent asthma flare type symptoms despite stopping propranolol 4 days ago. Patient has just started this medication 2-1/2 weeks ago after which her asthma symptoms began to flare-up. I do think it is likely that patient's symptoms are related to this and she is advised to not take it in the future as her PCP also advised. On exam today she does have wheezing in all greco although her sats are okay at 95%, request RT evaluation who recommends nebulizer. Patient has significant improvement after nebulizer with improved lung sounds and subjective improvement in breathing. Prescription for prednisone for asthma exacerbation and patient advised she can continue additional neb treatments at home as needed over the next few days. Patient provided with prescription for hydroxyzine for anxiety as needed until she can get in to see her mental health provider again and talk about other options to help with her anxiety. Patient's chest x-ray today showed no acute cardiopulmonary process. She also had a viral panel swab done as she has had a cough for 2 weeks with worsening symptoms and this was negative. Advised to follow up closely with her PCP as planned. Return precautions provided, follow-up plan discussed, all questions answered. <Jessica Mathias MD - Last Filed: 08/26/23 20:37> Lab Data Labs: Lab Results 08/24/23 Range/Units 16:48 Chlamy pneumoniae PCR Not detected (Not Detect) Adenovirus (PCR) Not detected (Not Detect) B.parapertussis DNA PCR Not detected (Not Detecte) Coronavirus OC43 (PCR) Not detected (Not Detect) Coronavirus HKU1 (PCR) Not detected (Not Detect) Coronavirus 229E (PCR) Not detected (Not Detect) SARS-CoV-2 (PCR) Not detected (Not Detecte) Coronavirus NL63 (PCR) Not detected (Not Detect) Human Metapneumovir PCR Not detected (Not Detect) Influenza Type A (PCR) Not detected (Not Detect) Influenza Type B (PCR) Not detected (Not Detect) M. pneumoniae (PCR) Not detected (Not Detect) Parainfluenza 1 (PCR) Not detected (Not Detect) Parainfluenza 2 (PCR) Not detected (Not Detect) Parainfluenza 3 (PCR) Not detected (Not Detect) Parainfluenza 4 (PCR) Not detected (Not Detect) RSV (PCR) Not detected (Not Detect) Entero/Rhino (PCR) Not detected (Not Detect) Discharge Plan Departure Patient Disposition: Home Clinical Impression: Asthma with acute exacerbation Qualifiers: Asthma severity: moderate Asthma persistence: persistent Qualified Code(s): J45.41 - Moderate persistent asthma with (acute) exacerbation Adverse reaction to beta-peace Qualifiers: Encounter type: initial encounter Qualified Code(s): T44.7X5A - Adverse effect of beta-adrenoreceptor antagonists, initial encounter Activity Restrictions/Additional Instructions: *You have been diagnosed with [asthma exacerbation, adverse reaction to propranolol/beta-peace] *What to do: *Please continue to take your regular medications as directed. [2 ] New medication prescriptions sent to your pharmacy: [Hydroxyzine for anxiety, prednisone-steroid] [ ] New medication written as a paper prescription [ ] No new medications given *Please follow up with your primary care provider in 2-3 days, call for an appointment. Let them know you were seen in the Emergency Department and that we ask that you be seen in follow up. We will electronically transmit a record of today's note if your PCP is in our system. I have prescribed due to medications, hydroxyzine can be taken for anxiety you can take this as needed or as needed do not exceed 6 tablets or 150 mg total in a day. Please keep in mind this can potentially be sedating so do not drive or operate heavy equipment after taking it. I also prescribed some steroid medicine for you to reduce inflammation associated with your asthma/airway reactivity. Usually this should start to improve her breathing symptoms within a day or 2. You can continue to do home nebulizer treatments if needed for the next day or so but if he feel like her breathing is getting bad again please make sure you seek re-evaluation. We did give you a breathing treatment today in the emergency department which definitely improved your lung sounds and you felt better after this. It is important to take the steroid medicine as well as it is an anti-inflammatory that will reduce your symptoms and should improve your breathing. We did give you a 1st dose of steroid medicine today in the emergency department. You should pick up operator your prescription and continue it tomorrow as prescribed. We did a chest x-ray today and it does not show any evidence of pneumonia, I do think that your breathing difficulty recently is more related to your asthma and reactivity probably associated with the new medication-propranolol. Please do not take anymore of this medicine as your primary care doctor already advised. You can talk to your psychologist/psychiatrist about other options to help with anxiety as there may be a better long-term solution for you besides the hydroxyzine I am prescribing today. I hope you feel better soon. *If you do not have a primary care provider please contact the [facility] Resource line at [phone]. They will ask some questions about your medical history and help get you set up with a doctor in the community. *Return to Emergency Department if you should have any new, worsening or concerning symptoms, such as [fever greater than 101 F, shaking chills, worsening pain, persistent vomiting or other bothersome symptoms] Prescriptions: New hydroxyzine HCl 25 mg tablet 25 mg PO TID PRN (Reason: anxiety) 15 Days Qty: 30 0RF prednisone 20 mg tablet 40 mg PO DAILY 5 Days Qty: 10 0RF No Action guaifenesin 1,200 mg tablet extended release 12hr 1,200 mg PO Q12H Qty: 30 0RF (DME) OneTouch Ultra Blue Test Strip strip See Dose Instructions .ROUTE .MEDSUPPLY Qty: 50 11RF Dose Instruction: As directed Rx Instructions: check blood sugar once a day (DME) Glucose: Home Monitor 0 .Route .MEDSUPPLY Qty: 1 0RF Rx Instructions: Use to test blood sugars at home to test once daily. (DME) blood sugar test strips Qty: 100 6RF Rx Instructions: Use with glucometer to test blood sugars once a day. (DME) lancets Qty: 100 6RF Rx Instructions: Use with glucometer to test blood sugars once a day. (DME) nebulizer and all supplies See Rx Instructions .Route .MEDSUPPLY Qty: 1 0RF Rx Instructions: As directed Please fax order to [facility] or [facility] to proceed with neb supplies request, thank you. albuterol sulfate [ProAir HFA] 90 mcg/actuation HFA aerosol inhaler 2 puff INHALATION .q4-6 hours PRN (Reason: shortness of breath or wheezing) Qty: 8.5 3RF fluticasone propionate [Flonase Allergy Relief] 50 mcg/actuation spray,suspension 1 spray intranasal BID Qty: 16 1RF Rx Instructions: administer into each nostril hydrocortisone [Anusol-HC] 2.5 % cream with perineal applicator 1 applic NC BID-QID PRN (Reason: hemorrhoids) Qty: 30 2RF metformin 500 mg tablet extended release 24 hr 500 mg PO BID Qty: 60 1RF Rx Instructions: Work up to 1 tab with snack, 2 with dinner. progesterone micronized [Prometrium] 200 mg capsule 200 mg PO BEDTIME Qty: 60 1RF Rx Instructions: Take for 10-14 days leading up to menses Mirena 21 mcg/24 hours (8 yrs) 52 mg intrauterine device 1 device intrauterine ONCE Qty: 1 0RF [place]govy 0.25 mg/0.5 mL pen injector 0.25 mg SUBCUT QWEEK Qty: 6 1RF Rx Instructions: administer weeks 1 through 4 of therapy Flovent HFA 110 mcg/actuation HFA aerosol inhaler 1 puff inhalation BID Qty: 12 3RF Rx Instructions: administer with spacer. [place] teeth after use boric acid vaginal suppositories 600 mg vaginal .nightly Qty: 1 0RF pantoprazole [Protonix] 40 mg tablet,delayed release (DR/EC) 40 mg PO DAILY Qty: 30 0RF Referrals: Malu Nieto DO [Primary Care Provider] - Stand Alone Forms: Patient Portal/API ED Sign-out <Jessica Mathias MD - Last Filed: 08/26/23 20:37> Cosign ED Attending Cosignature Attestation: I did not see this patient. I was available all times for consultation.
--- NOTE | 2023-08-24 18:13 | DI.RAD.S_ITS ---
PROCEDURE: XR CHEST 2V INDICATIONS: asthma/wheezing/cough x 17 d TECHNIQUE: 2 views of the chest were acquired. COMPARISON: [facility], CR, XR CHEST 2V, 04/19/2023, 13:04. FINDINGS: Surgical changes and devices: None. Lungs and pleura: Lungs are clear. No pleural effusions or pneumothorax. Mediastinum: Mediastinal contours are normal. Heart size is normal. Bones and chest wall: No suspicious bony abnormalities. Soft tissues appear unremarkable. IMPRESSION: No acute pulmonary process. Dictated by: Edwige Alcantara M.D. on 08/24/2023 at 18:36 Approved by: Edwige Alcantara M.D. on 08/24/2023 at 18:36
[2023-08-24 18:29] VITALS: PULSE 90; RESP 16; O2SAT 96
[2023-08-24] MEDS: ALBUTEROL/IPRATROPIUM 3 ML AMPUL 9 ML INH (18:29)
[2023-08-24] MEDS: predniSONE 20 MG TABLET 40 MG PO (19:12)
[2023-08-24 19:17] VITALS: BP 135/82; PULSE 90; RESP 20; O2SAT 99
--- NOTE | 2023-08-24 19:19 | PC.NURSE ---
assessment done by provider.
== END 2023-08-24 19:20 | disposition home or self-care (01) ==
PROVIDERS: Emergency Medicine; Emergency Provider Student in an Organized Health Care Education/Training Program; Family Provider Family Medicine; PCP Family Medicine
DX: J45.41 Moderate persistent asthma with (acute) exacerbation (principal); T44.7X5A Adverse effect of beta-adrenoreceptor antagonists, initial encounter; Z79.899 Other long term (current) drug therapy; Z20.822 Contact with and (suspected) exposure to COVID-19
CPT/HCPCS: 71046; 87633; 94640; 99283; 99284

== ENCOUNTER → 2023-08-29 13:55 | Outpatient (CLI) | payer OTHER, MEDICAID, SELFPAY ==
[2023-08-29 15:03] LABS: Hemoglobin A1C% w Est Avg Glu 5.6 % (4.0-6.0)
[2023-08-31 19:36] LABS: Insulin Level Total 4.2 uIU/mL (2.6-24.9)
== END ==
PROVIDERS: Family Provider Family Medicine; PCP Family Medicine; Referring Provider Family Medicine; Visit Provider Family Medicine
DX: R53.83 Other fatigue (principal); R73.9 Hyperglycemia, unspecified; Z68.41 Body mass index [BMI] 40.0-44.9, adult
CPT/HCPCS: 36415; 83036; 83525; 84443

== ENCOUNTER 2023-10-24 09:16 | Emergency (ER) | payer OTHER, MEDICAID, SELFPAY ==
[2023-10-24 09:31] VITALS: BP 140/89; PULSE 91; RESP 18; TEMP 36.6; O2SAT 94; BMI 40.8
--- NOTE | 2023-10-24 09:37 | DI.RAD.S_ITS ---
PROCEDURE: XR CHEST 2V INDICATIONS: cough TECHNIQUE: 2 views of the chest were acquired. COMPARISON: [facility], CR, XR CHEST 2V, 08/24/2023, 18:14. FINDINGS: Surgical changes and devices: None. Lungs and pleura: Lungs are clear. No pleural effusions or pneumothorax. Mediastinum: Mediastinal contours are normal. Heart size is normal. Bones and chest wall: No suspicious bony abnormalities. Soft tissues appear unremarkable. IMPRESSION: No acute cardiopulmonary abnormality is seen. Dictated by: Elton Godoy M.D. on 10/24/2023 at 11:01 Approved by: Elton Godoy M.D. on 10/24/2023 at 11:01
[2023-10-24 11:31] VITALS: BP 164/91; PULSE 93; RESP 18; TEMP 36.5; O2SAT 93
[2023-10-24] MEDS: predniSONE 20 MG TABLET 60 MG PO (13:37)
[2023-10-24] MEDS: ALBUTEROL/IPRATROPIUM 3 ML AMPUL INH (14:11)
[2023-10-24 14:27] VITALS: PULSE 83; RESP 24; O2SAT 94
--- NOTE | 2023-10-25 13:38 | ED.GENADULT ---
HPI - General Adult <Beatriz Gracia PA-C - Last Filed: 10/25/23 13:47> General Chief complaint: Upper Respiratory Symptoms Stated complaint: SoB Time Seen by Provider: 10/24/23 11:16 Source: patient Mode of arrival: Ambulatory History of Present Illness HPI narrative: 28-year-old female with past medical history ADHD, anxiety, asthma presents to the ED with 1 week of worsening shortness of breath, wheezing. Patient has a history of asthma, was exposed to some smoke when [place] the [place] last [place], after which her symptoms started. Patient denies fever, chills, chest pain, nausea, vomiting, lightheadedness, dizziness, syncope. Patient has been using albuterol 10-14 times a day with little relief. Patient does not appear to be taking the fluticasone for maintenance of the asthma. Patient states that she was not aware that that need to be taken every day. Related Data Previous Rx's Medication Instructions Recorded blood sugar diagnostic (OneTouch #50 ea 10/18/18 Ultra Blue Test Strip) Glucose: Home Monitor #1 ea 08/17/19 blood sugar test strips #100 ea 08/17/19 lancets #100 ea 08/17/19 hydrocortisone 2.5 % topical cream 1 applic NV BID-QID PRN 10/02/20 with perineal applicator hemorrhoids #30 grams (Anusol-HC) nebulizer and all supplies #1 ea 11/13/20 pantoprazole 40 mg tablet,delayed 40 mg PO DAILY #30 tabs 08/25/22 release (Protonix) fluticasone propionate 50 1 spray intranasal BID #16 grams 11/04/22 mcg/actuation nasal spray,suspension (Flonase Allergy Relief) levonorgestrel 21 mcg/24 hours (8 1 device intrauterine ONCE #1 ea 11/30/22 yrs) 52 mg intrauterine device (Mirena) progesterone micronized 200 mg 200 mg PO BEDTIME #60 caps 11/30/22 capsule (Prometrium) guaifenesin 1,200 mg tablet, 1,200 mg PO Q12H #30 tabs 04/19/23 extended release 12 hr semaglutide (weight loss) 0.25 0.25 mg (0.5 mL) SUBCUT QWEEK #6 mL 08/24/23 mg/0.5 mL subcutaneous pen injector (Boby) albuterol sulfate 90 mcg/actuation 2 puff inhalation .q4-6 hours PRN 09/05/23 aerosol inhaler (ProAir HFA) shortness of breath or wheezing #8.5 grams fluticasone propionate 110 1 puff inhalation BID #12 grams 09/05/23 mcg/actuation HFA aerosol inhaler hydroxyzine HCl 25 mg tablet 25 mg PO BID PRN anxiety #60 tabs 09/05/23 metformin 500 mg tablet,extended 500 mg PO BID #90 tabs 09/05/23 release 24 hr prednisone 20 mg tablet 60 mg (3 x 20 mg) PO DAILY 5 days 10/24/23 #5 tabs Allergies Allergy/AdvReac Type Severity Reaction Status Date / Time venlafaxine AdvReac Intermediate [place], Verified 09/05/23 09:10 increased suicidal ideation Review of Systems <Beatriz Gracia PA-C - Last Filed: 10/25/23 13:47> Constitutional Constitutional: Denies chills, Denies fatigue, Denies fever(s), Denies frequent falls, Denies lethargy and Denies weakness Eyes Eyes: Denies change in vision, Denies eye discharge, Denies irritation and Denies loss of vision ENT Ears, Nose, Mouth, and Throat: Denies change in voice, Denies dizziness, Denies neck pain, Denies sore throat and Denies throat swelling Cardiovascular Cardiovascular: Denies chest pain, Denies irregular heart rhythm, Denies lightheadedness, Denies palpitations, Reports dyspnea, Denies dyspnea on exertion and Denies orthopnea Respiratory Respiratory: Denies cough, Reports dyspnea, Denies dyspnea on exertion and Reports wheezing Gastrointestinal Gastrointestinal: Denies abdominal pain, Denies change in bowel habits, Denies diarrhea, Denies nausea and Denies vomiting Musculoskeletal Musculoskeletal: Denies neck pain and Denies numbness Integumentary/Breasts Skin/Breast: Denies pruritus, Denies erythema, Denies rash and Denies wounds Neurologic Neurologic: Denies behavioral changes, Denies confusion, Denies dizziness, Denies frequent falls, Denies loss of vision, Denies numbness and Denies weakness Psychiatric Psychiatric: Denies anxiety, Denies behavioral changes, Denies confusion, Denies depression, Denies homicidal ideation and Denies suicidal ideation Endocrine Endocrine: Denies fatigue, Denies flushing and Denies palpitations Hematologic/Lymphatic Hematologic/Lymphatic: Denies easy bruising Allergic/Immunologic Allergic/Immunologic: Denies urticaria, Denies throat swelling and Reports wheezing Patient History <Beatriz Gracia PA-C - Last Filed: 10/25/23 13:47> Medical History (Updated 10/24/23 @ 14:59 by Beatriz Gracia PA-C) Adverse reaction to beta-peace Folliculitis Acute bronchitis (~03/2020) History of hyperglycemia Lumbar region somatic dysfunction Sacral region somatic dysfunction Pelvic somatic dysfunction Acute right-sided low back pain without sciatica Thoracic region somatic dysfunction Chronic thoracic back pain Rib pain on right side Laryngitis, chronic Frequent loose stools (~1993) Gastritis (~2018) Asthma (~2000) PCOS (polycystic ovarian syndrome) (~2001) Skin lesion of right arm (~2013) Hemorrhoids (~2014) Shoulder pain, right Acute pain of right shoulder (08/29/17) Cervical paraspinal muscle spasm (~2016) Dysmenorrhea (~2006) Surgical History History of tonsillectomy and adenoidectomy Status post tonsillectomy and adenoidectomy History of third molar tooth extraction Family History Mother Hyperlipidemia Diabetes mellitus Father No problems noted. Grandmother Heart disease Emphysema lung Smoker Grandfather Family estrangement Grandmother No problems noted. Grandfather No problems noted. Social History household members: significant other and children Smoking Status: Never smoker alcohol intake: current Smoking Status: Never smoker alcohol intake frequency: holidays/special occasions only Substance Use Type: marijuana Exam <Beatriz Gracia PA-C - Last Filed: 10/25/23 13:47> Narrative Exam Narrative: Const General:?cooperative, healthy appearing and comfortable [facility] Head:?normal to inspection Ears:?hearing grossly normal bilaterally Nose:?external nose normal Face and sinus:?normal facial exam and sinuses nontender Mouth:?oral mucosae normal Throat:?posterior oropharynx normal Eyes General:?appearance normal, both eyes and all related structures Neck Neck:?normal visual inspection and no lymphadenopathy noted Resp Effort & Inspection:?normal respiratory effort Auscultation:? Mild generalized wheezes Cardio Rate:?regular rate Rhythm:?regular rhythm Neuro General:?patient alert, patient awake and patient oriented x3 Initial Vital Signs Initial Vital Signs: Vital Signs Temperature 97.9 F 10/24/23 09:31 Pulse Rate 91 H 10/24/23 09:31 Respiratory Rate 18 10/24/23 09:31 Blood Pressure 140/89 10/24/23 09:31 Pulse Oximetry 94 10/24/23 09:31 Oxygen Delivery Method Room Air 10/24/23 09:31 <Jessica Figueredo DO - Last Filed: 10/25/23 17:59> Initial Vital Signs Initial Vital Signs: Vital Signs Temperature 97.9 F 10/24/23 09:31 Pulse Rate 91 H 10/24/23 09:31 Respiratory Rate 18 10/24/23 09:31 Blood Pressure 140/89 10/24/23 09:31 Pulse Oximetry 94 10/24/23 09:31 Oxygen Delivery Method Room Air 10/24/23 09:31 Course <Beatriz Gracia PA-C - Last Filed: 10/25/23 13:47> Orders Ordered: Discontinued Medications Albuterol/Ipratropium (Albuterol/Ipratropium 3 Ml Ampul) 3 ml INH NOW ONE Stop: 10/24/23 14:07 Last Admin: 10/24/23 14:11 Dose: 3 ml Documented By: Prednisone (Prednisone 20 Mg Tablet) 60 mg PO NOW ONE Stop: 10/24/23 13:31 Last Admin: 10/24/23 13:37 Dose: 60 mg Documented By: SUSAN <Jessica Figueredo DO - Last Filed: 10/25/23 17:59> Orders Ordered: Discontinued Medications Albuterol/Ipratropium (Albuterol/Ipratropium 3 Ml Ampul) 3 ml INH NOW ONE Stop: 10/24/23 14:07 Last Admin: 10/24/23 14:11 Dose: 3 ml Documented By: Prednisone (Prednisone 20 Mg Tablet) 60 mg PO NOW ONE Stop: 10/24/23 13:31 Last Admin: 10/24/23 13:37 Dose: 60 mg Documented By: SUSAN Medical Decision Making <Beatriz Gracia PA-C - Last Filed: 10/25/23 13:47> MDM Narrative Medical decision making narrative: 28-year-old female with past medical history ADHD, anxiety, asthma presents to the ED with 1 week of worsening shortness of breath, wheezing. Concern for acute asthma exacerbation versus bronchitis versus pneumonia versus other. Chest x-ray was obtained without acute findings. A treatment of albuterol and ipratropium improved patient's symptoms. Patient was also given prednisone. Patient endorsed feeling much improved with the medications. Prescribed prednisone. Recommend continuing albuterol until symptoms resolve. Counseled patient on the importance of taking the maintenance meds such as fluticasone. Recommend follow-up with PCP to re-evaluate the asthma care. ED return precautions discussed with patient. Patient verbalized understanding. Medical records reviewed: Yes Discharge Plan Departure Patient Disposition: Home Clinical Impression: Asthma exacerbation Qualifiers: Asthma severity: mild Asthma persistence: unspecified Qualified Code(s): J45.901 - Unspecified asthma with (acute) exacerbation Instructions: DI for Asthma -- Adult Activity Restrictions/Additional Instructions: You were evaluated in the ED today for shortness of breath and wheezing. It appears that you have an acute asthma exacerbation. You were given a dose of albuterol/ipratropium and a dose of prednisone for your symptoms. Your symptoms improved with the medications. Please continue the albuterol at home for the next few days until your wheezing and symptoms have completely resolved. You were also being prescribed prednisone to take for the next 5 days. Please follow-up with your PCP for further evaluation and maintenance medications for asthma. It is recommended that you take some maintenance medications on a daily basis to keep a good control over your asthma. Return to the ED if you have worsening symptoms, shortness of breath, chest pain. Prescriptions: New prednisone 20 mg tablet 60 mg PO DAILY 5 Days Qty: 5 0RF No Action guaifenesin 1,200 mg tablet extended release 12hr 1,200 mg PO Q12H Qty: 30 0RF (DME) OneTouch Ultra Blue Test Strip strip See Dose Instructions .ROUTE .MEDSUPPLY Qty: 50 11RF Dose Instruction: As directed Rx Instructions: check blood sugar once a day (DME) Glucose: Home Monitor 0 .Route .MEDSUPPLY Qty: 1 0RF Rx Instructions: Use to test blood sugars at home to test once daily. (DME) blood sugar test strips Qty: 100 6RF Rx Instructions: Use with glucometer to test blood sugars once a day. (DME) lancets Qty: 100 6RF Rx Instructions: Use with glucometer to test blood sugars once a day. (DME) nebulizer and all supplies See Rx Instructions .Route .MEDSUPPLY Qty: 1 0RF Rx Instructions: As directed Please fax order to [facility] or [facility] to proceed with neb supplies request, thank you. fluticasone propionate [Flonase Allergy Relief] 50 mcg/actuation spray,suspension 1 spray intranasal BID Qty: 16 1RF Rx Instructions: administer into each nostril hydrocortisone [Anusol-HC] 2.5 % cream with perineal applicator 1 applic NV BID-QID PRN (Reason: hemorrhoids) Qty: 30 2RF progesterone micronized [Prometrium] 200 mg capsule 200 mg PO BEDTIME Qty: 60 1RF Rx Instructions: Take for 10-14 days leading up to menses Mirena 21 mcg/24 hours (8 yrs) 52 mg intrauterine device 1 device intrauterine ONCE Qty: 1 0RF albuterol sulfate [ProAir HFA] 90 mcg/actuation HFA aerosol inhaler 2 puff INHALATION .q4-6 hours PRN (Reason: shortness of breath or wheezing) Qty: 8.5 3RF Flovent HFA 110 mcg/actuation HFA aerosol inhaler 1 puff inhalation BID Qty: 12 3RF Rx Instructions: administer with spacer. [place] teeth after use hydroxyzine HCl 25 mg tablet 25 mg PO BID PRN (Reason: anxiety) Qty: 60 2RF metformin 500 mg tablet extended release 24 hr 500 mg PO BID Qty: 90 1RF Rx Instructions: Work up gradually to full dose 2,000mg /day in divided doses with food Wegovy 0.25 mg/0.5 mL pen injector 0.25 mg SUBCUT QWEEK Qty: 6 1RF Rx Instructions: administer weeks 1 through 4 of therapy pantoprazole [Protonix] 40 mg tablet,delayed release (DR/EC) 40 mg PO DAILY Qty: 30 0RF Referrals: Malu Nieto DO [Primary Care Provider] - Stand Alone Forms: Patient Portal/API ED Sign-out <Jessica Figueredo DO - Last Filed: 10/25/23 17:59> Cosign ED Attending Cosignature Attestation: I was immediately available in the department for consultation.
== END 2023-10-24 15:03 | disposition home or self-care (01) ==
PROVIDERS: Emergency Provider Student in an Organized Health Care Education/Training Program; Family Provider Family Medicine; PCP Family Medicine
DX: J45.901 Unspecified asthma with (acute) exacerbation (principal)
CPT/HCPCS: 71046; 94150; 94640; 99283; 99284

== ENCOUNTER → 2023-10-27 15:53 | Outpatient (CLI) | payer OTHER, MEDICAID, SELFPAY ==
--- NOTE | 2023-10-27 15:54 | DI.US.S_ITS ---
PROCEDURE: US PELVIC COMPLETE INDICATIONS: check IUD placement, vaginal bleeding, dyspareunia TECHNIQUE: Real-time scanning was performed of the pelvic organs, with image documentation. Additional endovaginal scanning was necessary due to incomplete visualization of the adnexal and endometrial structures by transabdominal scanning. COMPARISON: [facility], US, US PELVIC COMPLETE, 05/28/2020, 12:54. FINDINGS: Uterus: Uterus is anteverted and normal in size at 9.4 x 7.0 x 4.0 cm. The myometrium is homogeneous. The endometrium measures 5 mm combined thickness. There is an IUD in appropriate position. Ovaries: The right ovary measures 3.7 x 2.1 x 2.1 cm, with a calculated ovarian volume of 8.5 cc. The left ovary measures 3.3 x 2.4 x 2.4 cm, with a calculated ovarian volume of 9.9 cc. The ovaries have a normal sonographic appearance. Less than 12 follicles can be seen in each ovary. No adnexal masses are seen. Other: No pathologic free abdominal or pelvic fluid. IMPRESSION: 1. IUD in appropriate position. We strive to produce accurate, complete, and clear reports of imaging services. To assist us in improving patient care, this report was composed using standard report templates and voice recognition software. Therefore, it may contain abnormal punctuation, insertions and/or omissions. Occasional wrong-word or sound-alike substitutions may occur. Though we review the report and make efforts to correct it, we do recommend that the report be read carefully in proper context to recognize any text inaccuracies. Dictated by: Sofia Alford M.D. on 10/27/2023 at 16:10 Approved by: Sofia Alford M.D. on 10/27/2023 at 16:14
== END ==
PROVIDERS: Family Provider Family Medicine; PCP Family Medicine; Referring Provider Obstetrics & Gynecology; Visit Provider Obstetrics & Gynecology
DX: N92.6 Irregular menstruation, unspecified (principal); Z30.431 Encounter for routine checking of intrauterine contraceptive device
CPT/HCPCS: 76830; 76856

== ENCOUNTER → 2023-10-28 12:25 | Outpatient (CLI) | payer OTHER, MEDICAID, SELFPAY ==
[2023-10-29 12:53] LABS: Candida species Negative (Negative); Gardnerella vaginalis Positive (Negative); Trichomoas vaginalis Negative (Negative)
== END ==
PROVIDERS: Family Provider Family Medicine; PCP Family Medicine; Visit Provider Family Medicine
DX: N89.8 Other specified noninflammatory disorders of vagina (principal)
CPT/HCPCS: 87480; 87510; 87660

== ENCOUNTER → 2023-12-02 16:07 | Outpatient (CLI) | payer OTHER, MEDICAID, SELFPAY ==
[2023-12-02 17:40] LABS: Add Manual Diff / Slide Review NO; Basophils Absolute Auto 0 /uL (0-100); Basophils Percent Auto 0.2 % (0-2); Eosinophils Absolute Auto 300 /uL (0-450); Eosinophils Percent Auto 3.3 % (2-4); Hematocrit 37.7 % (36-46); Hemoglobin 12.9 g/dL (12.0-16.0); Lymphocytes Absolute Auto 3600 /uL (1100-4500); Lymphocytes Percent Auto 38.2 % (25-40); Mean Corpuscular HGB Conc 34.3 % (30-36); Mean Corpuscular Hemoglobin 30.8 PG (26-34); Mean Corpuscular Volume 89.8 fL (80-100); Monocytes Absolute Auto 500 /uL (0-900); Monocytes Percent Auto 5.7 % (3-14); Neutrophils Absolute Auto 5000 /uL (1500-7000); Neutrophils Percent Auto 52.6 % (50-75); Platelet Count 206 X10^3/uL (150-400); Red Cell Distribution Width 13.7 % (11.6-14.8); White Blood Cell Count 9.5 X10^3/uL (4.5-11.0)
== END ==
PROVIDERS: Family Provider Family Medicine; PCP Family Medicine; Referring Provider Internal Medicine Critical Care Medicine; Visit Provider Internal Medicine Critical Care Medicine
DX: J45.909 Unspecified asthma, uncomplicated (principal)
CPT/HCPCS: 82785; 85025; 86003

== ENCOUNTER → 2023-12-22 15:08 | Outpatient (CLI) | payer OTHER, MEDICAID, SELFPAY | PROVIDERS: Family Provider Family Medicine; PCP Family Medicine; Visit Provider Physician Assistant Medical | DX: N89.8 Other specified noninflammatory disorders of vagina (principal) | CPT/HCPCS: 87086; 87210 ==

== ENCOUNTER → 2023-12-22 15:35 | Outpatient (CLI) | payer OTHER, MEDICAID, SELFPAY | PROVIDERS: Family Provider Family Medicine; PCP Family Medicine; Referring Provider Physician Assistant Medical; Visit Provider Physician Assistant Medical | DX: Z20.2 Contact with and (suspected) exposure to infections with a predominantly sexual mode of transmission (principal); N89.8 Other specified noninflammatory disorders of vagina | CPT/HCPCS: 81002; 86696; 87086; 87210 ==

== ENCOUNTER → 2024-02-23 14:19 | Outpatient (CLI) | payer OTHER, MEDICAID, SELFPAY ==
[2024-02-23 21:40] LABS: Urine N gonorrhoeae NOT DETECTED
[2024-02-23 21:42] LABS: Urine Chlamydia NOT DETECTED
== END ==
PROVIDERS: Family Provider Family Medicine; PCP Family Medicine; Visit Provider Obstetrics & Gynecology
DX: Z11.3 Encounter for screening for infections with a predominantly sexual mode of transmission (principal)
CPT/HCPCS: 87491; 87591